=== PATIENT | female | born 1955 | race Caucasian/White ===

== ENCOUNTER 2020-06-10 11:01 | Outpatient (REF) | payer OTHER, SELFPAY ==
--- NOTE | ~2020-06-10 | XR_ITS ---
EXAMINATION: XR SACRUM AND COCCYX CLINICAL INFORMATION: Sacrococcygeal disorders. COMPARISON: None TECHNIQUE: 2 views of the sacrum and 2 views of the coccyx were obtained. FINDINGS: The sacrum appears unremarkable. There is mild posterior displacement of S2 in relation to S1 vertebra, question age. No visible fracture seen. The presacral and prevertebral soft tissues are normal. The SI joints are symmetrical and normal. XR/XR sacrum coccyx min 2V IMPRESSION: Mild posterior subluxation of S2 in relation S1 of indeterminate age. This could be remote. No acute fracture involving the sacrum. The SI joints are symmetrical and normal.
[2020-06-10 13:57] LABS: Hematocrit 39.7 % (37-47); Hemoglobin 12.5 g/dl (12.0-16.0)
[2020-06-10 14:32] LABS: Alanine Aminotransferase 25 U/L (0-31); Albumin Level 4.2 g/dL (3.5-5.0); Alkaline Phosphatase 98 U/L (39-117); Anion Gap 16 (12-20); Aspartate Amino Transferase 24 U/L (5-31); Bilirubin Direct < 0.2 mg/dL (0.0-0.5); Bilirubin Total 0.2 mg/dL (0.0-1.0); Blood Urea Nitrogen 18 mg/dL (9-16); Calcium 9.3 mg/dL (8.4-10.2); Carbon Dioxide 23 mmol/L (22-29); Chloride 104 mmol/L (96-108); Estimated Glomerular Filt Rate > 60; Glucose Random 86 mg/dL (60-115); Potassium 4.9 mmol/L (3.3-5.1); Sodium 138 mmol/L (135-145); Total Protein 7.3 g/dL (6.5-8.0)
[2020-06-10 14:55] LABS: TSH reflex Free T4 1.56 uIU/mL (0.32-4.0)
[2020-06-10 15:50] LABS: Vitamin B12 228 pg/mL (200-900)
[2020-06-11 05:32] LABS: LDL Cholesterol Direct 106 mg/dL (<100)
[2020-06-17 11:56] LABS: Vitamin D 25-OH, D2 <4 ng/mL; Vitamin D 25-OH, D3 24 ng/mL; Vitamin D 25-OH, Total 24 ng/mL (30-100)
== END 2020-06-10 11:02 | disposition home or self-care (01) ==
LOC: HO.HMGCLDS 11:01
PROVIDERS: PCP Internal Medicine; Visit Provider Internal Medicine
DX: M47.814 Spondylosis without myelopathy or radiculopathy, thoracic region (principal); T78.40XA Allergy, unspecified, initial encounter; E66.9 Obesity, unspecified; M19.90 Unspecified osteoarthritis, unspecified site; M54.9 Dorsalgia, unspecified; G89.29 Other chronic pain; R32 Unspecified urinary incontinence; E55.9 Vitamin D deficiency, unspecified; M53.3 Sacrococcygeal disorders, not elsewhere classified; R11.2 Nausea with vomiting, unspecified; R19.7 Diarrhea, unspecified; R10.13 Epigastric pain
CPT/HCPCS: 36415; 72220; 80048; 80076; 82306; 82607; 83721; 84443; 85014; 85018

== ENCOUNTER → 2020-07-07 14:34 | Outpatient (BNVA) | payer SELFPAY | PROVIDERS: PCP Internal Medicine; Visit Provider Internal Medicine Gastroenterology ==

== ENCOUNTER → 2020-07-15 14:35 | Outpatient (BNVA) | payer MEDICAID, SELFPAY | PROVIDERS: PCP Internal Medicine; Visit Provider Internal Medicine Gastroenterology ==

== ENCOUNTER 2020-10-08 15:14 | Emergency (ER) | payer OTHER, MEDICAID, SELFPAY ==
--- NOTE | ~2020-10-08 | XR_ITS ---
EXAMINATION: XR HAND, LEFT CLINICAL INFORMATION: Crushed fingers COMPARISON: None TECHNIQUE: PA, lateral, and oblique views of the left hand. FINDINGS: Bones are normal anatomic alignment. I do not appreciate any acute fracture or dislocation. Joint spaces appear preserved. No repair foreign body or soft tissue gas. XR/XR hand LT min 3V IMPRESSION: No acute fracture or dislocation.
--- NOTE | 2020-10-08 18:28 | ED_ITS ---
HPI - Extremity Problem General Chief complaint: Wound/Laceration Stated complaint: hand lac Time Seen by Provider: 10/08/20 18:26 Source: patient Mode of arrival: ambulatory Limitations: language barrier History of Present Illness HPI Narrative: history obtained through medical records library professor. 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 Not up to date with tetanous shot. Complaint: extremity pain and joint swelling Onset (ago): hour(s) Pain Consistency: constant Location: left Quality: crushing Relieving factors: nothing Exacerbating factors: palpation Associated symptoms: denies other symptoms Related Data Home Medications Medication Instructions Recorded Confirmed No Known Home Meds 06/10/20 06/10/20 Previous Rx's Medication Instructions Recorded omeprazole 20 mg capsule,delayed 20 mg PO BID 90 Days #180 cap 06/10/20 release Allergies Allergy/AdvReac Type Severity Reaction Status Date / Time No Known Allergies Allergy Verified 07/15/20 14:35 Review of Systems Constitutional: Constitutional: Reports no additional constitutional complaints Eyes: Eyes: Reports no additional eye complaints ENT: Denies dizziness Cardiovascular: Cardiovascular: Reports no additional cardiovascular complaints Respiratory: Respiratory: Reports as per HPI Gastrointestinal: Gastrointestinal: Reports no additional gastrointestinal complaints Genitourinary: Genitourinary: Reports no additional female genitourinary complaints Musculoskeletal: Musculoskeletal: Reports no additional musculoskeletal complaints Integumentary/Breasts: Skin/Breast: Denies rash Neurologic: Reports system reviewed and no additional complaints, except as documented, Denies dizziness and Denies Sensory deficit (Neuro) Psychiatric: Psychiatric: Denies anxiety [facility] Past Medical History Surgical History (Updated 07/15/20 @ 14:37 by ANSHUL Yousif) H/O colonoscopy Social History Social History (Updated 07/15/20 @ 14:38 by ANSHUL Yousif) Household Members: Spouse Alcohol intake: current Alcohol intake frequency: does not drink Advance Directives: No Advance Directives Information Provided: No Patient : No Physical Exam Vital Signs: Vital Signs: Last Vital Signs Temp 97.1 F 10/08/20 18:40 Pulse 60 10/08/20 18:40 Resp 16 10/08/20 18:40 BP 174/79 H 10/08/20 18:40 Pulse Ox 100 10/08/20 18:40 Body Mass Index 34.0 Const: General: healthy appearing Nutritional Appearance: average body habitus Orientation/consciousness: oriented to person and patient oriented x3 Limitations: no limitations HENMT: Head: Yes normal to inspection Ears: external ears normal General nose exam: Normal external nose present Mouth: Normal oral and palatal mucosa present and oropharynx normal Throat: Yes posterior oropharynx normal Eyes: General: appearance normal, both eyes and all related structures Neck: Other: supple Neck: Yes normal visual inspection Chest: Chest palpation & inspection: normal inspection of the chest Resp: Auscultation: clear to auscultation bilaterally Cardio: Jugular venous distension: no JVD Rate: regular rate Rhythm: regular rhythm Heart sounds: S1 normal heart sound present and S2 normal heart sound present GI: Inspection: Yes normal to inspection Palpation (GI): Soft to palpation, nontender and No hepatosplenomegaly present Auscultation: normal bowel sounds : General: Yes no CVA tenderness Back/Spine/Pelvis: Back: no CVA tenderness Skin: General skin exam: no rashes or lesions noted Neuro: General: oriented to person and patient oriented x3 Cranial nerves: Yes CN's II-XII intact bilaterally Motor exam (neuro): 5/5 motor strength present throughout Sensory Exam: No Sensory deficit (Neuro) Extrem: Other: 2-5 fingers with slight bruising worse to #4 and #5. Number 5 with 2 3cm lacerations with ecchymosis. INjuries mostly to distal phalynx of all fingers. Psych: Appearance: grossly normal Course Course Course Narrative: no fractures. On laceration closed with 5 x 5-0 nylon, the other closed with 7 sutures Procedures Procedure Narrative Procedure Narrative: Patient prepped and draped in sterile fashion, 1% lidocaine used for anesthesia with digital block, wound irrigated under pressure with saline, closed with 5-0 nylon x 12. Patient tolerated procedure well. Discharge Plan Discharge Clinical Impression: Finger laceration Qualifiers: Encounter type: initial encounter Finger: little finger Damage to nail status: without damage Foreign body presence: without foreign body Laterality: left Qualified Code(s): S61.217A - Laceration without foreign body of left little finger without damage to nail, initial encounter Patient Disposition: Home, Self-Care Instructions: Finger Laceration (ED), Care For Your Stitches (ED) Additional Instructions: suture removal in 7 days Prescriptions: No Action omeprazole 20 mg capsule,delayed release(DR/EC) 20 mg PO BID 90 Days Qty: 180 RF: 0 Referrals: Physician,Unknown [Primary Care Provider] - 1 week (suture removal in 7 days) Stand Alone Forms: Work/School Release
[2020-10-08 18:40] VITALS: BP 174/79; PULSE 60; RESP 16; TEMP 36.2; O2SAT 100; BMI 34.0
[2020-10-08] MEDS: Ketorolac Tromethamine 60 MG/2 ML VIAL IM (19:57)
[2020-10-08] MEDS: Diphth,Pertus(ACell),Tet Adult 0.5 ML SYRINGE IM (19:57)
== END 2020-10-08 20:24 | disposition home or self-care (01) ==
PROVIDERS: Emergency Provider Emergency Medicine
DX: S61.217A Laceration without foreign body of left little finger without damage to nail, initial encounter (principal); W31.9XXA Contact with unspecified machinery, initial encounter; Y93.9 Activity, unspecified; Y92.9 Unspecified place or not applicable; Y99.9 Unspecified external cause status
CPT/HCPCS: 12002; 73130; 90471; 90715; 96372; 99284; J1885

== ENCOUNTER → 2020-11-05 15:00 | Outpatient (BNVA) | payer OTHER, SELFPAY | PROVIDERS: PCP Internal Medicine; Visit Provider Orthopaedic Surgery | DX: S61.217A Laceration without foreign body of left little finger without damage to nail, initial encounter (principal); W26.0XXA Contact with knife, initial encounter; Y93.G3 Activity, cooking and baking; Y92.9 Unspecified place or not applicable; Y99.8 Other external cause status | CPT/HCPCS: 99202 ==

== ENCOUNTER → 2020-12-03 08:05 | Outpatient (BNVA) | payer OTHER, SELFPAY | PROVIDERS: PCP Internal Medicine; Visit Provider Orthopaedic Surgery | DX: S61.217D Laceration without foreign body of left little finger without damage to nail, subsequent encounter (principal); M79.644 Pain in right finger(s) | CPT/HCPCS: 99212 ==

== ENCOUNTER 2021-01-13 14:00 | Outpatient (RCR) | payer OTHER, SELFPAY ==
--- NOTE | 2020-12-11 14:43 | MHC.OT.OEV ---
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 SHE PRESENTED TO [facility] FOR A LEFT FIFTH DIGIT LACERATION ON 10/08/20. Pt WAS REFERRED TO DR DAWKINS AFTER ONE SUTURE WAS UNABLE TO BE REMOVED IN HER PCP'S OFFICE. 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 WASHING DISHES, DOING LAUNDRY, AND COOKING. Sleep: HX OF DIFFICULTIES WITH SLEEPING PRIOR TO INJURY, REPORTS EVEN MORE DIFFICULTIES SINCE INJURY Driving: NOT CURRENTLY DRIVING, TAKES PUBLIC TRANSPORTATION Balance: IMPAIRED, Pt REPORTS RLE PAIN AND SWELLING. DOES NOT AMBULATE WITH AD Pain Assessment Pain Score: 0-8/10 Pain Scale Used: Numeric (0 - 10) Pain Location and Description: LEFT SMALL FINGER, LATERAL D5 OCCASIONAL PAIN IN D4-D2, LOW PAIN REPORTED Aggravating Factors: WASHING DISHES, HITTING/BUMPING SMALL FINGER ON OBJECTS, LIGHT TOUCH Alleviating Factors: TYLENOL IN AM AND PM, OCCASIONAL MASSAGE, HAS NOT USED ICE OR HEAT Skin and Soft Tissue Assessment Skin and Soft Tissue: Swelling Scar Tissue Comments: HEALED SCAR WITH MILD SWELLING DISTALLY TO SMALL FINGER OF LEFT HAND Sensory Assessment Temperature: Light Touch: Left Impaired Proprioception: Vibration: Comments: HYPERSENSATIVE TO LIGHT TOUCH DISTALLY TO D5, APPEARS IMPAIRED SENSATION DISTALLY TO D5. SEMMES DANNA ASSESSMENT INCONSISTENT DUE TO LANGUAGE BARRIER; REPORTS PAIN WITH MONOFILAMENTS TOUCHING DISTALLY TO DIPj Edema Assessment Upper Extremity: Left Impaired Lower Extremity: Comments: CIRCUMFERENCE OF D5 PIPj: LEFT 5.5 CM, RIGHT 5.2 CM CIRCUMFERENCE OF D5 DIPj: LEFT 4.8 CM ,RIGHT 4.1 CM Dexterity Assessment Dexterity: Left Impaired Comments: FUNCTIONAL DEXTERITY TEST: LEFT 40 SECONDS (MINIMALLY FUNCTIONAL), RIGHT 30 SECONDS (MODERATELY FUNCTIONAL) Special Tests Comments: AROM(PROM) Strength Elbow Flexion: Extension: Pronation: Supination: Comments: WFL Flexion: Extension: Pronation: Supination: Comments: Wrist Flexion: Extension: Ulnar Deviation: Radial Deviation: Comments: WFL Flexion: Extension: Ulnar Deviation: Radial Deviation: Comments: Digits Index MCP: PIP: DIP: Long MCP: PIP: DIP: Ring MCP: PIP: DIP: Small MCP: L 68, R 72 PIP: L 56 (64), R 90 DIP: L 2/32, R 78 Comments: Gross Grasp: L 15, R 20 Lateral Pinch: Two-Point Pinch: Three-Jaw Андрей: Comments: GUARDING L SMALL FINGER WITH MARKING CLERK TESTING Patient Education Primary Language: Faroese Plant Health Care Technician Required: Yes Current Knowledge: Understands information with skills for self-management Teaching Method: Demonstration Handouts Phone Call Verbal Education Needs Identified on Evaluation: ADL's Disease Information Equipment Use Exercise Pain Safety How did patient/family demonstrate learning? Patient demonstrates Patient verbalizes Needs reinforcement Barriers to Learning: Other Readiness for Learning: Accepting Who was educated? Patient Comments: [employer] HYDROMETER FINISHER UTILIZED #[id number] Plan of Care Assessment: HERIBERTO IS 9 WEEKS S/P LACERATION TO VOLAR ASPECT, DISTAL TO DIP JOINT OF THE LEFT SMALL FINGER. SHE SUSTAINED HER INJURY WHILE WORKING IN THE KITCHEN AT HER PLACE OF EMPLOYMENT. DURING HER OT EVALUATION, Pt WAS ABLE TO UNDERSTAND SOME SCOTTISH, YET AN HYDROMETER FINISHER WAS UTILIZED TO OPTIMIZE COMMUNICATION. SHE IS EXPERIENCING PAIN WITH LIGHT TOUCH TO DISTAL SMALL FINGER OF HER LEFT UE, AND IS LIMITING HER PARTICIPATION IN DAILY ACTIVITIES. HERIBERTO REPORTS MOST DIFFICULTIES WITH PERFORMING WORK RELATED TASKS, INCLUDING WASHING DISHES AND CUTTING WITH KNIFE. ONGOING SKILLED OT IS WARRANTED TO ADDRESS ROM, STRENGTH, DESENSITIZATION STRATEGIES, PATIENT EDUCATION AND RETURN TO MAXIMUM FUNCTIONAL LEVEL WITH IADLs. STG Duration: 2 WEEKS Short Term Goals: IND HEP IND EDEMA MANAGEMENT STRATEGIES IND USE OF HEAT/ICE Pt TO INCORPORATE L SMALL FINGER INTO FUNCTIONAL TASKS WITH <MIN CUING Pt WILL TOLERATE LIGHT TOUCH FOR 8 MINS PAINFREE AT REST AND <6/10 WITH LIGHT IADLs LTG Duration: 4 WEEKS Half-Way Goals: TOLERATE CUTTING, PREPPING FOOD WITH APPROPRIATE STRENGTH Pt WILL TOLERATE FIRM, DEEP TOUCH FOR 8 MINS FUNCTIONAL DEXTERITY TEST TO FUNCTIONAL (<26 SECONDS) WILL REPORT <4/10 PAIN WITH LIFTING >10 POUNDS FOR IADLs Frequency and Duration: The patient will be seen 2X/WEEK FOR 4 WEEKS Treatment Plan: Therapeutic Exercise Therapeutic Activity Home Exercise Program Splinting Neuro Re-ed Patient Education Desensitization/Sensory Re-ed Edema Control ADL Training Ultrasound NMES Iontophoresis Paraffin Fluidotherapy MHP Cold Packs Joint Mobilization Soft Tissue Mobilization Kinesiotaping Other (see comments) Electronically Signed By: SANDY JERONIMO/Alvaro Reviewed/agree with student documentation: N/A Therapist: Please sign and return to therapist, Thank you for your referral.
--- NOTE | 2021-01-15 14:43 | MHC.OT.DC ---
[address] [phone] F: [phone] Occupational Therapy Discharge Note Provider: Tea Richard Diagnosis: LACERATION OF LEFT LITTLE FINGER Date of Evaluation: 12/11/20 Date of Discharge: 01/15/21 Treatments to Date: 8 Discharge Status: Improved Function Independent with HEP Discharge Summary: MS SAENZ HAS BEEN SEEN FOR OUTPATIENT OT SERVICES. SHE HAS IMPROVED FUNCTIONAL USE OF L HAND, CONT TO HAVE SENSATIVITY AT SCAR. DENIES DIFFICULTIES WITH HOME OR WORK RELATED TASKS. RECOMMEND [facility] FOR HOME USE. READY FOR TRANSITION TO SELF MAINTENANCE PROGRAM. Electronically Signed By: SANDY JERONIMO/Alvaro Reviewed/agree with student documentation: N/A Therapist: Please Sign and return to therapist, thank you for your referral.
== END 2021-01-15 14:55 | disposition home or self-care (01) ==
LOC: HO.OT 14:00
PROVIDERS: Visit Provider Orthopaedic Surgery
DX: S61.217A Laceration without foreign body of left little finger without damage to nail, initial encounter (principal)
CPT/HCPCS: 97035; 97110; 97112; 97166

== ENCOUNTER 2021-02-07 12:14 | Emergency (ER) | payer OTHER, SELFPAY ==
--- NOTE | ~2021-02-07 | XR_ITS ---
EXAMINATION: XR CHEST CLINICAL INFORMATION: Fever, chills, cough COMPARISON: Frontal view 05/22/19 TECHNIQUE: Upright frontal portable view of the chest was obtained. FINDINGS: Devices overlie the patient. Minimal rotation to left. The mediastinum leelee and vasculature are within normal limits. Lung volumes are relatively low. There are subsegmental linear opacities in both lower lung zones. The upper lung zones are well aerated. No pneumothorax or pleural fluid. Opaque structure superimposes over the right cervical spine likely related to the patient's hair XR/XR chest 1V IMPRESSION: Hypoinflation with bibasilar atelectasis. No edema or dense pneumonia
[2021-02-07 12:15] VITALS: BP 110/79; BP 116/54; PULSE 68; PULSE 79; RESP 18; TEMP 37.3; O2SAT 97; O2SAT 98; BMI 33.8
[2021-02-07 12:24] VITALS: O2SAT 97
--- NOTE | 2021-02-07 12:34 | ED_ITS ---
HPI - General Adult General Chief complaint: Upper Respiratory Symptoms Stated complaint: SOB,FEVER,?COVID,? PNA Time Seen by Provider: 02/07/21 12:19 Source: patient Mode of arrival: EMS Limitations: no limitations History of Present Illness HPI narrative: 65-year-old female who presents to emergency department for evaluation of 3 days flu-like illness. The patient states that she has had a cough which is mainly nonproductive. She has diffuse chest pain which is worse with coughing, she describes it as a sharp intermittent pain which is [id number]-[id number] in intensity. She states that her muscles and joints ache. She is also complaining of headache and pain in her neck. She has had subjective fever at home. She states that she has had a decreased appetite but she has been drinking fluid. She complained of nausea but denied vomiting. She denied change in bowel movements, she has had no diarrhea. She denied frequency, urgency or dysuria. She was seen at an urgent care clinic and they were concerned that she had pneumonia so she was transferred to the emergency department by ambulance. The patient states that she has been taking Tylenol at home with some relief for symptoms. The patient received the [employer] COVID-19 vaccination in June of 2020. Related Data Previous Rx's Medication Instructions Recorded cholecalciferol (vitamin D3) 25 25 mcg PO DAILY 90 Days #90 cap 12/26/20 mcg (1,000 unit) capsule omeprazole 20 mg capsule,delayed 20 mg PO BID 90 Days #180 cap 12/26/20 release Allergies Allergy/AdvReac Type Severity Reaction Status Date / Time No Known Allergies Allergy Verified 02/07/21 11:02 Review of Systems Review of Systems: Yes all other systems are reviewed and are negative [facility] Past Medical History [facility] Narrative: Past medical history : Cellulitis, GERD, degenerative joint disease, osteoarthritis. Past surgical history: None. Social history: The patient denies tobacco, alcohol and drug use. Medical History Visit for suture removal Surgical History H/O colonoscopy Social History Social History Household Members: Spouse Housing: House Alcohol intake: current Alcohol intake frequency: does not drink Patient Tobacco Use Status: Never used Tobacco e-Cigarette/Vaping Use: Never Used Second Hand Smoke Exposure: No Use of substances other than those prescribed or required for medical reasons: No Advance Directives: No Advance Directives Information Provided: No service: No Physical Exam Vital Signs: Vital Signs: Last Vital Signs Temp 99.2 F 02/07/21 12:15 Pulse 68 02/07/21 12:15 Resp 18 02/07/21 12:15 BP 116/54 L 02/07/21 12:15 Pulse Ox 97 02/07/21 12:24 Body Mass Index 33.8 Const: Other: Very pleasant and cooperative female patient, she does not appear to be in distress. HENMT: Head: Yes normal to inspection, Yes normocephalic and Yes atraumatic Ears: external ears normal General nose exam: Normal external nose present Face and sinus: Yes normal facial exam Mouth: Abnormal oral and palatal mucosa present (Very dry mucous membranes) Throat: Yes posterior oropharynx normal Eyes: General: appearance normal, both eyes and all related structures Pupils: Equal, round and reactive pupils present Neck: Neck: Yes normal visual inspection, Yes no lymphadenopathy, Yes trachea midline and Yes supple Chest: Chest palpation & inspection: normal inspection of the chest and normal palpation of entire chest wall Resp: Effort & Inspection: normal respiratory effort and able to speak in complete sentences Auscultation: clear to auscultation bilaterally Cardio: Rate: regular rate Rhythm: regular rhythm Heart sounds: S1 normal heart sound present, S2 normal heart sound present and no murmurs GI: Inspection: Yes normal to inspection Palpation (GI): Soft to palpation, nontender and no guarding Auscultation: normal bowel sounds : General: Yes no CVA tenderness Back/Spine/Pelvis: Back: no CVA tenderness Skin: General skin exam: no rashes or lesions noted Neuro: Cranial nerves: Yes CN's II-XII intact bilaterally and Yes Equal, round and reactive pupils present Cognition (Neuro): normal cognition Motor exam (neuro): 5/5 motor strength present throughout Extrem: General: Yes normal to inspection Psych: Appearance: grossly normal Speech and movement: Normal speech and movement present Affect: normal affect Attitude: cooperative Thought process: Normal thought process present Thought content: Normal thought content present Course Course Course Narrative: 65-year-old female who presents emergency department for evaluation of 3 days of flu-like illness with pleuritic chest pain and a nonproductive cough. The patient was seen at urgent care clinic and referred to the emergency department to rule out pneumonia. Patient's physical examination revealed very dry mucous membranes otherwise was unremarkable. I ordered a CBC, CMP, lipase, lactate, blood cultures x2. One-view chest x-ray will be obtained. A viral respiratory panel was also ordered. Patient was ordered to get normal saline IV x1 L. the patient's pain will be treated with Toradol 30 mg IV and her nausea be treated with Zofran 4 mg IV. 1553: The patient's chest x-ray was unremarkable. Laboratory evaluation revealed a slightly low white blood count of 3500 otherwise was normal. The patient's respiratory viral panel is positive for COVID-19. The patient was vaccinated with the [employer] COVID-19 vaccine. did discuss the blood work and positive COVID test with the patient. At this time she is not hypoxic, tachypneic or tachycardic and she appears well therefore she will be d ischarged home. I do not think the patient would benefit from antibiotics or for steroids at this time. Medical Decision Making Lab Data Result diagrams: 02/07/21 12:50 02/07/21 12:50 Labs: Lab Results 02/07/21 02/07/21 02/07/21 Range/Units 12:50 12:50 12:50 WBC 3.5 L (4.8-10.8) X10*3/uL RBC 4.74 (4.20-5.50) X10*6/uL Hgb 12.4 (12.0-16.0) g/dl Hct 39.1 (37-47) % MCV 82.5 (80-98) fL MCH 26.2 L (27.0-33.0) pg MCHC 31.7 (31.0-35.0) g/dl RDW 15.2 (11.0-16.0) % Plt Count 208 (160-400) X10*3/uL MPV 10.7 (9.4-12.3) fL Immature Gran % (Auto) 0.3 (0.0-0.4) % Neut % (Auto) 40.6 L (45-73) % Lymph % (Auto) 47.7 H (20-40) % Humphreys % (Auto) 9.7 (2-11) % Eos % (Auto) 1.7 (0-4) % Baso % (Auto) 0.0 (0-2) % Lymph # (Auto) 1.7 (1.2-4.9) X10*3/uL Humphreys # (Auto) 0.3 (0.1-1.2) X10*3/uL Eos # (Auto) 0.1 (0.0-0.4) X10*3/uL Baso # (Auto) 0.0 (0.0-0.2) X10*3/uL Abs Immat Gran (auto) 0.01 (0.00-0.03) X10*3/uL Absolute Neuts (auto) 1.4 L (2.0-8.3) X10*3/uL Absolute Nucleated RBC 0.000 (0.0-0.012) X10*3/uL Nucleated RBC % (auto) 0.0 (0.0-0.2) /100WBC Sodium 140 (135-145) mmol/L Potassium 4.3 (3.3-5.1) mmol/L Chloride 107 (96-108) mmol/L Carbon Dioxide 25 (22-29) mmol/L Anion Gap 12 (12-20) BUN 11 (9-16) mg/dL Creatinine 0.90 (0.5-1.4) mg/dL Estim Creat Clear Calc 65.9 Estimated GFR > 60 Random Glucose 93 (60-115) mg/dL Lactic Acid 0.6 (0.5-2.0) mmol/L Calcium 8.9 (8.4-10.2) mg/dL Total Bilirubin < 0.2 (0.0-1.0) mg/dL AST 25 (5-31) U/L ALT 21 (0-31) U/L Alkaline Phosphatase 88 (39-117) U/L Total Protein 6.6 (6.5-8.0) g/dL Albumin 4.0 (3.5-5.0) g/dL Lipase 74 (8-78) U/L Respiratory Panel Allison Adenovirus (Rapid PCR) (Not Detect.) B.pert (TEM-PCR) (Not Detect.) B.parapertussis DNA PCR (Not Detect.) C. pneumoniae DNA (PCR) (Not Detect.) Coronavirus OC43 (PCR) (Not Detect.) Coronavirus HKU1 (PCR) (Not Detect.) Coronavirus 229E (PCR) (Not Detect.) Coronavirus NL63 (PCR) (Not Detect.) Human Metapneumovir PCR (Not Detect.) Influenza A (RT-PCR) (Not Detect.) Influenza B (RT-PCR) (Not Detect.) M. pneumoniae (PCR) (Not Detect.) Parainfluenza 1 (PCR) (Not Detect.) Parainfluenza 2 (PCR) (Not Detect.) Parainfluenza 3 (PCR) (Not Detect.) Parainfluenza 4 (PCR) (Not Detect.) RSV (PCR) (Not Detect.) Entero/Rhino (PCR) (Not Detect.) SARS-CoV-2 RNA (RT-PCR) (Not Detect.) 02/07/21 Range/Units 13:41 WBC (4.8-10.8) X10*3/uL RBC (4.20-5.50) X10*6/uL Hgb (12.0-16.0) g/dl Hct (37-47) % MCV (80-98) fL MCH (27.0-33.0) pg MCHC (31.0-35.0) g/dl RDW (11.0-16.0) % Plt Count (160-400) X10*3/uL MPV (9.4-12.3) fL Immature Gran % (Auto) (0.0-0.4) % Neut % (Auto) (45-73) % Lymph % (Auto) (20-40) % Humphreys % (Auto) (2-11) % Eos % (Auto) (0-4) % Baso % (Auto) (0-2) % Lymph # (Auto) (1.2-4.9) X10*3/uL Humphreys # (Auto) (0.1-1.2) X10*3/uL Eos # (Auto) (0.0-0.4) X10*3/uL Baso # (Auto) (0.0-0.2) X10*3/uL Abs Immat Gran (auto) (0.00-0.03) X10*3/uL Absolute Neuts (auto) (2.0-8.3) X10*3/uL Absolute Nucleated RBC (0.0-0.012) X10*3/uL Nucleated RBC % (auto) (0.0-0.2) /100WBC Sodium (135-145) mmol/L Potassium (3.3-5.1) mmol/L Chloride (96-108) mmol/L Carbon Dioxide (22-29) mmol/L Anion Gap (12-20) BUN (9-16) mg/dL Creatinine (0.5-1.4) mg/dL Estim Creat Clear Calc Estimated GFR Random Glucose (60-115) mg/dL Lactic Acid (0.5-2.0) mmol/L Calcium (8.4-10.2) mg/dL Total Bilirubin (0.0-1.0) mg/dL AST (5-31) U/L ALT (0-31) U/L Alkaline Phosphatase (39-117) U/L Total Protein (6.5-8.0) g/dL Albumin (3.5-5.0) g/dL Lipase (8-78) U/L Respiratory Panel Allison See Note Adenovirus (Rapid PCR) Not Detected (Not Detect.) B.pert (TEM-PCR) Not Detected (Not Detect.) B.parapertussis DNA PCR Not Detected (Not Detect.) C. pneumoniae DNA (PCR) Not Detected (Not Detect.) Coronavirus OC43 (PCR) Not Detected (Not Detect.) Coronavirus HKU1 (PCR) Not Detected (Not Detect.) Coronavirus 229E (PCR) Not Detected (Not Detect.) Coronavirus NL63 (PCR) Not Detected (Not Detect.) Human Metapneumovir PCR Not Detected (Not Detect.) Influenza A (RT-PCR) Not Detected (Not Detect.) Influenza B (RT-PCR) Not Detected (Not Detect.) M. pneumoniae (PCR) Not Detected (Not Detect.) Parainfluenza 1 (PCR) Not Detected (Not Detect.) Parainfluenza 2 (PCR) Not Detected (Not Detect.) Parainfluenza 3 (PCR) Not Detected (Not Detect.) Parainfluenza 4 (PCR) Not Detected (Not Detect.) RSV (PCR) Not Detected (Not Detect.) Entero/Rhino (PCR) Not Detected (Not Detect.) SARS-CoV-2 RNA (RT-PCR) Detected A (Not Detect.) Discharge Plan Discharge Clinical Impression: COVID-19 virus infection Patient Disposition: Home, Self-Care Instructions: COVID-19 (Coronavirus Disease 2019) (ED) Additional Instructions: Your chest x-ray was normal suggesting that you do not have pneumonia at this time. Your blood work was normal as well. Your oxygen level Prescriptions: No Action omeprazole 20 mg capsule,delayed release(DR/EC) 20 mg PO BID 90 Days Qty: 180 RF: 0 cholecalciferol (vitamin D3) 25 mcg (1,000 unit) capsule 25 mcg PO DAILY 90 Days Qty: 90 RF: 3
[2021-02-07] MEDS: Ketorolac Tromethamine 15 MG/ML VIAL 30 MG IVPUSH (12:41)
[2021-02-07] MEDS: 0.9 % Sodium Chloride 1,000 ML 999 ML IV (12:41)
[2021-02-07] MEDS: ondansetron HCL 4 MG/2 ML VIAL IVPUSH (12:41)
[2021-02-07 12:55] LABS: MANUAL DIFF FLAG NO
[2021-02-07 13:06] LABS: Lactic Acid 0.6 mmol/L (0.5-2.0)
[2021-02-07 13:14] LABS: Eosinophils Absolute Auto 0.1 X10*3/uL (0.0-0.4); Eosinophils Percent Auto 1.7 % (0-4); Hematocrit 39.1 % (37-47); Hemoglobin 12.4 g/dl (12.0-16.0); Imm Gran Abs Auto 0.01 X10*3/uL (0.00-0.03); Imm Gran Pct Auto 0.3 % (0.0-0.4); Lymphocytes Absolute Auto 1.7 X10*3/uL (1.2-4.9); Lymphocytes Percent Auto 47.7 % (20-40); Mean Corpuscular HGB Conc 31.7 g/dl (31.0-35.0); Mean Corpuscular Hemoglobin 26.2 pg (27.0-33.0); Mean Corpuscular Volume 82.5 fL (80-98); Mean Platelet Volume 10.7 fL (9.4-12.3); Monocytes Absolute Auto 0.3 X10*3/uL (0.1-1.2); Monocytes Percent Auto 9.7 % (2-11); Neutrophils Absolute Auto 1.4 X10*3/uL (2.0-8.3); Neutrophils Percent Auto 40.6 % (45-73); Platelet Count 208 X10*3/uL (160-400); Red Blood Count 4.74 X10*6/uL (4.20-5.50); Red Cell Distribution Width 15.2 % (11.0-16.0); White Blood Count 3.5 X10*3/uL (4.8-10.8)
[2021-02-07 13:30] LABS: Alanine Aminotransferase 21 U/L (0-31); Alkaline Phosphatase 88 U/L (39-117); Anion Gap 12 (12-20); Aspartate Amino Transferase 25 U/L (5-31); Bilirubin Total < 0.2 mg/dL (0.0-1.0); Blood Urea Nitrogen 11 mg/dL (9-16); Calcium 8.9 mg/dL (8.4-10.2); Carbon Dioxide 25 mmol/L (22-29); Chloride 107 mmol/L (96-108); Creatinine Clr Calc Pharmacy 65.9; Estimated Glomerular Filt Rate > 60; Glucose Random 93 mg/dL (60-115); Lipase 74 U/L (8-78); Potassium 4.3 mmol/L (3.3-5.1); Sodium 140 mmol/L (135-145); Total Protein 6.6 g/dL (6.5-8.0)
[2021-02-07 13:46] LABS: Adenovirus PCR Not Detected (Not Detect.); Bordetella parapertussis PCR Not Detected (Not Detect.); Bordetella pertussis PCR Not Detected (Not Detect.); Chlamydia pneumoniae PCR Not Detected (Not Detect.); Coronavirus 229E PCR Not Detected (Not Detect.); Coronavirus HKU1 PCR Not Detected (Not Detect.); Coronavirus NL63 PCR Not Detected (Not Detect.); Coronavirus OC43 PCR Not Detected (Not Detect.); Human metapneumovirus PCR Not Detected (Not Detect.); Influenza A PCR Not Detected (Not Detect.); Influenza B PCR Not Detected (Not Detect.); Mycoplasma pneumoniae PCR Not Detected (Not Detect.); Parainfluenza 1 PCR Not Detected (Not Detect.); Parainfluenza 2 PCR Not Detected (Not Detect.); Parainfluenza 3 PCR Not Detected (Not Detect.); Parainfluenza 4 PCR Not Detected (Not Detect.); RSV PCR Not Detected (Not Detect.); Rhino/Enterovirus PCR Not Detected (Not Detect.)
[2021-02-07 15:19] LABS: SARS-CoV-2 PCR Detected (Not Detect.)
== END 2021-02-07 16:40 | disposition home or self-care (01) ==
PROVIDERS: Emergency Provider Emergency Medicine Emergency Medical Services; PCP Internal Medicine
DX: U07.1 COVID-19 (principal); J06.9 Acute upper respiratory infection, unspecified; R06.02 Shortness of breath; R50.9 Fever, unspecified; R11.0 Nausea; R05.9 Cough, unspecified; Z79.899 Other long term (current) drug therapy
CPT/HCPCS: 36415; 71045; 80053; 83605; 83690; 85025; 87633; 96361; 96374; 96375; 99284; J1885; J2405

== ENCOUNTER 2021-04-22 08:28 | Outpatient (REF) | payer OTHER, SELFPAY ==
--- NOTE | ~2021-04-22 | CT_ITS ---
EXAMINATION: CT HEAD WITHOUT CONTRAST CLINICAL INFORMATION: Mild cognitive impairment COMPARISON: None TECHNIQUE: Contiguous axial imaging was performed from the skull base to vertex without intravenous administration of contrast. This CT examination was performed using dose optimization techniques as appropriate, variously including the following: *Automated exposure control *Adjustment of mA and/or kV according to patient size (this includes techniques or standardized protocols for targeted exams where dose is matched to indication/reason for exam; i.e. extremities or head) *Use of iterative reconstruction technique DLP: 800 mGy-cm FINDINGS: There is no evidence of an extra-axial collection. There is no evidence of intra-axial or extra-axial hemorrhage. Ventricles and extra-axial CSF spaces are appropriate. There is mild periventricular white matter disease. No mass, mass effect or infarct is seen. Review of bone windows is normal. There is minimal inflammatory change in the ethmoid sinuses. Visualized paranasal sinuses, mastoid air cells and middle ears are otherwise clear. CT/CT head/brain wo con IMPRESSION: Mild periventricular white matter disease.
== END 2021-04-22 08:29 | disposition home or self-care (01) ==
LOC: HO.CT 08:28
PROVIDERS: PCP Internal Medicine; Visit Provider Psychiatry & Neurology Neurology
DX: G31.84 Mild cognitive impairment of uncertain or unknown etiology (principal); R90.82 White matter disease, unspecified
CPT/HCPCS: 70450

== ENCOUNTER 2021-05-18 13:55 | Outpatient (REF) | payer OTHER, SELFPAY ==
--- NOTE | ~2021-05-18 | XR_ITS ---
EXAMINATION: XR ANKLE, BILATERAL CLINICAL INFORMATION: Pain. COMPARISON: None TECHNIQUE: 3 views of each ankle. FINDINGS: RIGHT: Bone alignment is normal. No fracture or dislocation is seen. There is a small bony osteophyte projecting off the medial malleolus. The ankle mortise is normal. There are calcaneal spurs. Soft tissues are normal. LEFT: Bone alignment is normal. No fracture or dislocation is seen. There is a small bony osteophyte projecting off the medial malleolus. The ankle mortise is normal. There are calcaneal spurs. Soft tissues are normal. XR/XR ankle RT min 3V IMPRESSION: Bilateral calcaneal spurs. Bilateral medial malleolar osteophytes, left greater than right. Otherwise unremarkable exam.
--- NOTE | ~2021-05-18 | XR_ITS ---
EXAMINATION: XR ANKLE, BILATERAL CLINICAL INFORMATION: Pain. COMPARISON: None TECHNIQUE: 3 views of each ankle. FINDINGS: RIGHT: Bone alignment is normal. No fracture or dislocation is seen. There is a small bony osteophyte projecting off the medial malleolus. The ankle mortise is normal. There are calcaneal spurs. Soft tissues are normal. LEFT: Bone alignment is normal. No fracture or dislocation is seen. There is a small bony osteophyte projecting off the medial malleolus. The ankle mortise is normal. There are calcaneal spurs. Soft tissues are normal. XR/XR ankle LT min 3V IMPRESSION: Bilateral calcaneal spurs. Bilateral medial malleolar osteophytes, left greater than right. Otherwise unremarkable exam.
== END 2021-05-18 13:56 | disposition home or self-care (01) ==
LOC: HO.XRAY 13:55
PROVIDERS: PCP Internal Medicine; Visit Provider Psychiatry & Neurology Neurology
DX: M19.90 Unspecified osteoarthritis, unspecified site (principal); M77.32 Calcaneal spur, left foot; M77.31 Calcaneal spur, right foot; M25.775 Osteophyte, left foot
CPT/HCPCS: 73610

== ENCOUNTER 2021-10-05 06:02 | Outpatient (REF) | payer MEDICAID, SELFPAY ==
[2021-10-05 11:09] LABS: MANUAL DIFF FLAG NO
[2021-10-05 11:20] LABS: Basophils Percent Auto 0.5 % (0-2); Eosinophils Absolute Auto 0.3 X10*3/uL (0.0-0.4); Eosinophils Percent Auto 4.9 % (0-4); Hemoglobin 12.6 g/dl (12.0-16.0); Imm Gran Abs Auto 0.01 X10*3/uL (0.00-0.03); Imm Gran Pct Auto 0.2 % (0.0-0.4); Lymphocytes Absolute Auto 2.1 X10*3/uL (1.2-4.9); Lymphocytes Percent Auto 33.5 % (20-40); Mean Corpuscular HGB Conc 30.7 g/dl (31.0-35.0); Mean Corpuscular Hemoglobin 25.4 pg (27.0-33.0); Mean Corpuscular Volume 82.5 fL (80.0-98.0); Mean Platelet Volume 10.2 fL (9.4-12.3); Monocytes Absolute Auto 0.5 X10*3/uL (0.1-1.2); Monocytes Percent Auto 8.3 % (2-11); Neutrophils Absolute Auto 3.4 x10*3/uL (2.0-8.3); Neutrophils Percent Auto 52.6 % (45-73); Platelet Count 230 X10*3/uL (160-400); Red Blood Count 4.97 X10*6/uL (4.20-5.50); Red Cell Distribution Width 16.2 % (11.0-16.0); White Blood Count 6.4 X10*3/uL (4.8-10.8)
[2021-10-05 11:58] LABS: Alanine Aminotransferase 18 U/L (0-31); Albumin Level 4.2 g/dL (3.5-5.0); Alkaline Phosphatase 87 U/L (39-117); Anion Gap 13 (12-20); Aspartate Amino Transferase 17 U/L (5-31); Bilirubin Total 0.4 mg/dL (0.0-1.0); Blood Urea Nitrogen 14 mg/dL (9-16); Calcium 9.8 mg/dL (8.4-10.2); Carbon Dioxide 26 mmol/L (22-29); Chloride 106 mmol/L (96-108); Cholesterol 170 mg/dL; Estimated Glomerular Filt Rate > 60; Glucose Fasting 101 mg/dL (60-99); HDL Cholesterol 53 mg/dL; LDL Cholesterol Calculated 95 mg/dl; Potassium 4.6 mmol/L (3.3-5.1); Sodium 140 mmol/L (135-145); Total Protein 7.2 g/dL (6.5-8.0); Triglycerides 114 mg/dL
[2021-10-05 12:11] LABS: TSH reflex Free T4 1.76 uIU/mL (0.32-4.0)
[2021-10-05 12:31] LABS: Vitamin B12 283 pg/mL (200-900)
[2021-10-09 12:32] LABS: Vitamin D 25-OH, D2 <4 ng/mL; Vitamin D 25-OH, D3 24 ng/mL; Vitamin D 25-OH, Total 24 ng/mL (30-100)
== END 2021-10-05 06:03 | disposition home or self-care (01) ==
LOC: HO.HMGCLDS 06:02
PROVIDERS: PCP Internal Medicine; Visit Provider Internal Medicine
DX: R10.13 Epigastric pain (principal); R00.2 Palpitations; R32 Unspecified urinary incontinence; M19.90 Unspecified osteoarthritis, unspecified site; E55.9 Vitamin D deficiency, unspecified; E66.9 Obesity, unspecified; H53.8 Other visual disturbances
CPT/HCPCS: 36415; 80053; 80061; 82306; 82607; 84443; 85025

== ENCOUNTER 2022-01-02 11:27 | Emergency (ER) | payer OTHER, SELFPAY ==
--- NOTE | ~2022-01-02 | XR_ITS ---
EXAMINATION: XR CHEST CLINICAL INFORMATION: Chest pain. COMPARISON: 02/17/2021 chest radiograph. TECHNIQUE: 2 views of the chest were obtained. FINDINGS: No significant abnormality is noted involving the heart, lungs, mediastinum, bony thorax or soft tissues. XR/XR chest 2V IMPRESSION: No acute cardiopulmonary process.
--- NOTE | 2022-01-02 11:38 | ECG_ITS ---
Test Reason : CHEST PAIN Blood Pressure : / mmHG Vent. Rate : 070 BPM Atrial Rate : 070 BPM P-R Int : 144 ms QRS Dur : 078 ms QT Int : 396 ms P-R-T Axes : 023 026 039 degrees QTc Int : 427 ms Normal sinus rhythm Nonspecific T wave abnormality Abnormal ECG When compared with ECG of 21-FEB-2016 10:26, No significant change was found Referred By: Ani Leos Electronically Signed By:ANGELA GALEANA
[2022-01-02 11:55] VITALS: BP 113/52; BP 124/71; PULSE 71; PULSE 88; RESP 18; TEMP 37; O2SAT 100; O2SAT 97; BMI 30.7
--- NOTE | 2022-01-02 12:23 | ED.CHESTPAIN ---
HPI - Chest Pain General Chief Complaint: Chest Pain Stated Complaint: CHEST PAIN Time Seen by Provider: 01/02/22 11:36 Source: patient Mode of arrival: ambulatory Limitations: language barrier (Danish speaking, medical records library professor utilized) History of Present Illness HPI narrative: Patient presents emergency department for evaluation of chest pain and back pain that is been constant for the past 2 months with varying intensity. Pain is felt to the mid lower left side of the chest and mid back. She is unable to describe how the pain feels. It is made worse with deep inspiration/breathing. Denies any alleviating factors, states she has been given medications which did not resolve the pain. She received aspirin 324 mg from EMS. Denies fevers, chills, neck pain, neck stiffness, dizziness, lightheadedness, numbness or tingling of her of her extremities, swelling in the extremities, personal history of DVT/PE, personal history of cancer, coagulation disorders, hormone usage. Related Data Previous Rx's Medication Instructions Recorded cholecalciferol (vitamin D3) 50 50 mcg PO DAILY 90 days #90 caps 04/03/21 mcg (2,000 unit) capsule acetaminophen 500 mg tablet 500 mg PO TID PRN fever 90 days 11/17/21 (Tylenol Extra Strength) #240 tabs furosemide 20 mg tablet 20 mg PO Q OTHER DAY PRN Swelling 12/09/21 of feet 30 days #15 tabs Allergies Allergy/AdvReac Type Severity Reaction Status Date / Time No Known Allergies Allergy Verified 11/17/21 14:51 Review of Systems Review of Systems: Constitutional : No Weight loss, No Fever, No Chills ENT/Mouth :? No sore throat, No Rhinorrhea Eyes: No Eye Pain, No Swelling Cardiovascular : pos Chest Pain, no SOB, no Dyspnea on Exertion, No Orthopnea, No Edema, No Palpitations Respiratory : No Cough, No Sputum Gastrointestinal : pos Nausea, No Vomiting, No Diarrhea, No abdominal Pain, No Hematochezia, No Melena Genitourinary : No Dysuria, No Urinary Frequency Musculoskeletal : No joint pain, No Myalgias, No Joint Swelling Skin : No Skin Lesions, No rash Neuro : No Weakness, No Numbness, No Dizziness, No Headache Psych : No Anxiety/Panic, No Depression Heme/Lymph: No Bruising, No Lymphadenopathy Endocrine : No Polyuria, No Polydipsia Yes all other systems are reviewed and are negative PMFSH Past Medical History Attestation statement: The following information was validated with the patient. Source: old records reviewed Medical History Visit for suture removal Surgical History H/O colonoscopy Social History Social History Household Members: Spouse Housing: House Alcohol intake: current Alcohol intake frequency: does not drink Patient Tobacco Use Status: Never used Tobacco e-Cigarette/Vaping Use: Never Used Second Hand Smoke Exposure: No Advance Directives: No Advance Directives Information Provided: Yes service: No Current occupational status: retired Cognitive needs: No Hearing needs: No Vision needs: No Physical Exam Vital Signs: Vital Signs: Last Vital Signs Temp 98.6 F 01/02/22 11:55 Pulse 71 01/02/22 11:55 Resp 18 01/02/22 11:55 BP 113/52 L 01/02/22 11:55 Pulse Ox 97 01/02/22 11:55 O2 Del Method 01/02/22 11:55 BMI result Body Mass Index 30.7 Appearance: Alert.?Oriented to person, place and time. No acute distress.?Normal affect. Eyes: Pupils equal, round and reactive to light.? ENT: Pharynx normal.?? Neck/ Back: Normal inspection.? Neck supple.??No palpable midline thoracic spine tenderness, step-offs, deformities. CVS: Heart sounds normal. Normal heart rate and rhythm.? Pulses normal.?? Respiratory: No respiratory distress.? Lung sounds clear to auscultation bilaterally?? Abdomen: Soft and non-tender. Normoactive bowel sounds. No pulsatile mass.?? Skin: Skin warm and dry.? Normal skin color.? Normal skin turgor.?? Extremities: No lower extremity edema.? No calf ttp? Neuro: Moves all extremities spontaneously. Sensation intact bilaterally. CN II-XII intact. No focal neuro deficits. Ambulates with normal steady gait. Course Course Course Narrative: Patient is a 66-year-old female with a past medical history of obesity, arthralgias, cognitive dysfunction, thoracic degenerative joint disease, dyspepsia. She presents emergency department for evaluation of chest pain/back pain is reproducible to inspiration. She has been evaluated at the walk-in clinic for intermittent palpitations, epigastric pain, and arthralgias. Reports she was given a prescription for meloxicam which was helping with her joint pains. Additionally reporting that she had some issues with swelling in her ankles for which she was given a prescription for Lasix to use as needed. She has also been seen by a neurologist her mild cognitive dysfunction. Will obtain CBC to evaluate for leukocytosis/ anemia, CMP and lipase to evaluate for abnormal electrolytes /abnormal renal function/ abnormal hepatic/biliary function, EKG and troponin to evaluate for ischemia/ACS. Chest x-ray to evaluate for consolidation/ infiltrate/ mass/ pulmonary congestion. Reevaluation(s) Reevaluation #1: Troponin <3.5, EKG reveals normal sinus rhythm no acute ischemic findings, given duration of pain, unlikely ACS. CBC and CMP are overall unremarkable. Chest x-ray reveals no acute cardiopulmonary process. D-dimer normal, unlikely pulmonary embolism, COVID-19 testing is positive, which may be attributing to her pain at this time. She is in no apparent distress, no tachypnea, hypoxia, tachycardia, or fever. Advised patient on all findings and plan of care for discharge home, given the duration of her symptoms, she would not be a candidate for any COVID-19 treatment at this time, she does report that she has received a single [employer] vaccination. Advised rest, Tylenol/NSAID, fluids, isolation for at least 5 days, and may end isolation of symptoms are improving and she is without a fever. Discussed worrisome signs and symptoms to return back to the emergency department for. Advised outpatient follow-up with her primary care provider for further evaluation and treatment. Patient verbalized understanding, was discharged in stable condition. Time: 13:32 [facility] - Chest Pain Medical Records Data Attestation: I reviewed the patient's medical records. Lab Data Attestation: I reviewed the patient's lab results. Result diagrams: 01/02/22 12:23 01/02/22 12:23 Labs: Lab Results 01/02/22 01/02/22 01/02/22 Range/Units 12:22 12:23 12:23 WBC 5.6 (4.8-10.8) X10*3/uL RBC 4.66 (4.20-5.50) X10*6/uL Hgb 12.7 (12.0-16.0) g/dl Hct 38.6 (37.0-47.0) % MCV 82.8 (80.0-98.0) fL MCH 27.3 (27.0-33.0) pg MCHC 32.9 (31.0-35.0) g/dl RDW 15.2 (11.0-16.0) % Plt Count 218 (160-400) X10*3/uL MPV 9.8 (9.4-12.3) fL Immature Gran % (Auto) 0.2 (0.0-0.4) % Neut % (Auto) 47.5 (45-73) % Lymph % (Auto) 33.4 (20-40) % [place] % (Auto) 13.1 H (2-11) % Eos % (Auto) 5.4 H (0-4) % Baso % (Auto) 0.4 (0-2) % Lymph # (Auto) 1.9 (1.2-4.9) X10*3/uL [place] # (Auto) 0.7 (0.1-1.2) X10*3/uL Eos # (Auto) 0.3 (0.0-0.4) X10*3/uL Baso # (Auto) 0.0 (0.0-0.2) X10*3/uL Abs Immat Gran (auto) 0.01 (0.00-0.03) X10*3/uL Absolute Neuts (auto) 2.7 (2.0-8.3) x10*3/uL Absolute Nucleated RBC 0.000 (0.0-0.012) X10*3/uL Nucleated RBC % (auto) 0.0 (0.0-0.2) /100WBC D-Dimer High Sensitivty < 150 NG/ML Sodium 139 (135-145) mmol/L Potassium 4.6 (3.3-5.1) mmol/L Chloride 105 (96-108) mmol/L Carbon Dioxide 24 (22-29) mmol/L Anion Gap 15 (12-20) BUN 14 (9-16) mg/dL Creatinine 0.80 (0.5-1.4) mg/dL Estim Creat Clear Calc 72.3 Estimated GFR > 60 Random Glucose 114 (60-115) mg/dL Calcium 9.3 (8.4-10.2) mg/dL Magnesium 2.3 (1.6-2.6) mg/dL Total Bilirubin < 0.2 (0.0-1.0) mg/dL AST 29 D (5-31) U/L ALT 30 (0-31) U/L Alkaline Phosphatase 95 (39-117) U/L Troponin I High Sens (<3.5-17.0) ng/L Total Protein 6.9 (6.5-8.0) g/dL Albumin 4.0 (3.5-5.0) g/dL Lipase 55 (8-78) U/L COVID-19 (ALEXX) (Negative) COVID-19 Clin Com 01/02/22 01/02/22 Range/Units 12:23 12:23 WBC (4.8-10.8) X10*3/uL RBC (4.20-5.50) X10*6/uL Hgb (12.0-16.0) g/dl Hct (37.0-47.0) % MCV (80.0-98.0) fL MCH (27.0-33.0) pg MCHC (31.0-35.0) g/dl RDW (11.0-16.0) % Plt Count (160-400) X10*3/uL MPV (9.4-12.3) fL Immature Gran % (Auto) (0.0-0.4) % Neut % (Auto) (45-73) % Lymph % (Auto) (20-40) % [place] % (Auto) (2-11) % Eos % (Auto) (0-4) % Baso % (Auto) (0-2) % Lymph # (Auto) (1.2-4.9) X10*3/uL [place] # (Auto) (0.1-1.2) X10*3/uL Eos # (Auto) (0.0-0.4) X10*3/uL Baso # (Auto) (0.0-0.2) X10*3/uL Abs Immat Gran (auto) (0.00-0.03) X10*3/uL Absolute Neuts (auto) (2.0-8.3) x10*3/uL Absolute Nucleated RBC (0.0-0.012) X10*3/uL Nucleated RBC % (auto) (0.0-0.2) /100WBC D-Dimer High Sensitivty NG/ML Sodium (135-145) mmol/L Potassium (3.3-5.1) mmol/L Chloride (96-108) mmol/L Carbon Dioxide (22-29) mmol/L Anion Gap (12-20) BUN (9-16) mg/dL Creatinine (0.5-1.4) mg/dL Estim Creat Clear Calc Estimated GFR Random Glucose (60-115) mg/dL Calcium (8.4-10.2) mg/dL Magnesium (1.6-2.6) mg/dL Total Bilirubin (0.0-1.0) mg/dL AST (5-31) U/L ALT (0-31) U/L Alkaline Phosphatase (39-117) U/L Troponin I High Sens < 3.5 (<3.5-17.0) ng/L Total Protein (6.5-8.0) g/dL Albumin (3.5-5.0) g/dL Lipase (8-78) U/L COVID-19 (ALEXX) Positive A (Negative) COVID-19 Clin Com See Note Imaging Data Chest x-ray: Radiologist's impression: XR/XR chest 2V IMPRESSION: No acute cardiopulmonary process. ECG Data ECG #1: Attestation: I personally reviewed and interpreted this ECG as follows: ECG interpretation date: 01/02/22 Prior ECG tracings: available for review Interpretation: Rate: 70 Rhythm:? Normal sinus rhythm [place]:? Normal Normal P waves.? Normal MALLY.?? Normal QRS complex.?? ST T wave :??No ST elevation, no ST depression, no T-wave inversion qTC: 427 prior studies:?2016 The study has been interpreted contemporaneously by me. Discharge Plan Discharge Clinical Impression: COVID-19, Chest pain Patient Disposition: Home, Self-Care Instructions: Noncardiac Chest Pain (ED), COVID-19 (Coronavirus Disease 2019) (ED) Additional Instructions: As we discussed your COVID-19 testing today was positive. You should isolate for at least 5 days, you can end isolation after 5 days if you have improving symptoms, and do not have fever for 24 hours. You can take ibuprofen 200 mg, 3 tablets (600mg) every 6-8 hours as needed for pain, in addition to Tylenol 500 mg, 2 tablets (1,000mg) every 4-6 hours as needed for pain, but not to exceed 3 doses daily (3,000mg).? Please contact your primary care provider and arrange for a follow-up visit regarding your ongoing pain. Return to the emergency department with any new or worsening symptoms or concerns. Prescriptions: No Action furosemide 20 mg tablet 20 mg PO Q OTHER DAY PRN (Reason: Swelling of feet) 30 Days Qty: 15 0RF cholecalciferol (vitamin D3) 50 mcg (2,000 unit) capsule 50 mcg PO DAILY 90 Days Qty: 90 3RF acetaminophen [Tylenol Extra Strength] 500 mg tablet 500 mg PO TID PRN (Reason: fever) 90 Days Qty: 240 0RF Referrals: Keeley Dugan MD [Primary Care Provider] -
[2022-01-02 12:28] LABS: MANUAL DIFF FLAG NO
[2022-01-02 12:34] LABS: Basophils Percent Auto 0.4 % (0-2); Eosinophils Absolute Auto 0.3 X10*3/uL (0.0-0.4); Eosinophils Percent Auto 5.4 % (0-4); Hematocrit 38.6 % (37.0-47.0); Hemoglobin 12.7 g/dl (12.0-16.0); Imm Gran Abs Auto 0.01 X10*3/uL (0.00-0.03); Imm Gran Pct Auto 0.2 % (0.0-0.4); Lymphocytes Absolute Auto 1.9 X10*3/uL (1.2-4.9); Lymphocytes Percent Auto 33.4 % (20-40); Mean Corpuscular HGB Conc 32.9 g/dl (31.0-35.0); Mean Corpuscular Hemoglobin 27.3 pg (27.0-33.0); Mean Corpuscular Volume 82.8 fL (80.0-98.0); Mean Platelet Volume 9.8 fL (9.4-12.3); Monocytes Absolute Auto 0.7 X10*3/uL (0.1-1.2); Monocytes Percent Auto 13.1 % (2-11); Neutrophils Absolute Auto 2.7 x10*3/uL (2.0-8.3); Neutrophils Percent Auto 47.5 % (45-73); Platelet Count 218 X10*3/uL (160-400); Red Blood Count 4.66 X10*6/uL (4.20-5.50); Red Cell Distribution Width 15.2 % (11.0-16.0); White Blood Count 5.6 X10*3/uL (4.8-10.8)
[2022-01-02 12:37] LABS: COVID-19 Test Positive (Negative); IDNOW Serial# 55D5AD1C
[2022-01-02 12:50] LABS: D Dimer High Sensitivity < 150 NG/ML
[2022-01-02 12:54] LABS: Troponin-I High Sensitivity < 3.5 ng/L (<3.5-17.0)
[2022-01-02 13:06] LABS: Alanine Aminotransferase 30 U/L (0-31); Alkaline Phosphatase 95 U/L (39-117); Anion Gap 15 (12-20); Aspartate Amino Transferase 29 U/L (5-31); Bilirubin Total < 0.2 mg/dL (0.0-1.0); Blood Urea Nitrogen 14 mg/dL (9-16); Calcium 9.3 mg/dL (8.4-10.2); Carbon Dioxide 24 mmol/L (22-29); Chloride 105 mmol/L (96-108); Creatinine Clr Calc Pharmacy 72.3; Estimated Glomerular Filt Rate > 60; Glucose Random 114 mg/dL (60-115); Magnesium 2.3 mg/dL (1.6-2.6); Potassium 4.6 mmol/L (3.3-5.1); Sodium 139 mmol/L (135-145); Total Protein 6.9 g/dL (6.5-8.0)
[2022-01-02 13:42] LABS: Lipase 55 U/L (8-78)
== END 2022-01-02 15:44 | disposition home or self-care (01) ==
PROVIDERS: Nurse Practitioner Family; Emergency Provider Emergency Medicine; PCP Internal Medicine
DX: U07.1 COVID-19 (principal); R07.9 Chest pain, unspecified; Z20.822 Contact with and (suspected) exposure to COVID-19
CPT/HCPCS: 36415; 71046; 80053; 83690; 83735; 84484; 85025; 85379; 87635; 93005; 99283; 99284

== ENCOUNTER 2022-02-11 12:02 | Outpatient (REF) | payer OTHER, SELFPAY ==
--- NOTE | ~2022-02-11 | XR_ITS ---
EXAMINATION: X-RAY BILATERAL KNEES LEFT KNEE 2 VIEWS. RIGHT KNEE 2 VIEWS. CLINICAL INFORMATION: Pain COMPARISON: None TECHNIQUE: AP bilateral knees one view. Left knee 2 views. Right knee 2 views. FINDINGS: Right knee: Moderate to severe medial and patellofemoral arthritis, joint space loss, osteophytes. No evidence of fracture or dislocation. No significant effusion. Left knee: Moderate to severe medial and patellofemoral compartment arthritis, joint space loss, osteophytes. Marginal spur in the lateral compartment. Probable loose bodies posteriorly. No fracture or dislocation. No effusion.. XR/XR knee standing BI IMPRESSION: Right knee: Tricompartment osteoarthritis. Moderate to severe medial and patellofemoral arthritis. Left knee: Tricompartment osteoarthritis. Moderate to severe medial and patellofemoral arthritis. Probable loose bodies.
--- NOTE | ~2022-02-11 | XR_ITS ---
EXAMINATION: X-RAY BILATERAL KNEES LEFT KNEE 2 VIEWS. RIGHT KNEE 2 VIEWS. CLINICAL INFORMATION: Pain COMPARISON: None TECHNIQUE: AP bilateral knees one view. Left knee 2 views. Right knee 2 views. FINDINGS: Right knee: Moderate to severe medial and patellofemoral arthritis, joint space loss, osteophytes. No evidence of fracture or dislocation. No significant effusion. Left knee: Moderate to severe medial and patellofemoral compartment arthritis, joint space loss, osteophytes. Marginal spur in the lateral compartment. Probable loose bodies posteriorly. No fracture or dislocation. No effusion.. XR/XR knee LT 2V IMPRESSION: Right knee: Tricompartment osteoarthritis. Moderate to severe medial and patellofemoral arthritis. Left knee: Tricompartment osteoarthritis. Moderate to severe medial and patellofemoral arthritis. Probable loose bodies.
--- NOTE | ~2022-02-11 | XR_ITS ---
EXAMINATION: X-RAY BILATERAL KNEES LEFT KNEE 2 VIEWS. RIGHT KNEE 2 VIEWS. CLINICAL INFORMATION: Pain COMPARISON: None TECHNIQUE: AP bilateral knees one view. Left knee 2 views. Right knee 2 views. FINDINGS: Right knee: Moderate to severe medial and patellofemoral arthritis, joint space loss, osteophytes. No evidence of fracture or dislocation. No significant effusion. Left knee: Moderate to severe medial and patellofemoral compartment arthritis, joint space loss, osteophytes. Marginal spur in the lateral compartment. Probable loose bodies posteriorly. No fracture or dislocation. No effusion.. XR/XR knee RT 2V IMPRESSION: Right knee: Tricompartment osteoarthritis. Moderate to severe medial and patellofemoral arthritis. Left knee: Tricompartment osteoarthritis. Moderate to severe medial and patellofemoral arthritis. Probable loose bodies.
== END 2022-02-11 12:03 | disposition home or self-care (01) ==
LOC: HO.HOSX 12:02
PROVIDERS: Visit Provider Orthopaedic Surgery
DX: M17.12 Unilateral primary osteoarthritis, left knee (principal); M25.561 Pain in right knee
CPT/HCPCS: 73560; 73565; 99212

== ENCOUNTER 2022-06-19 11:13 | Outpatient (REF) | payer OTHER, SELFPAY ==
--- NOTE | ~2022-06-19 | XR_ITS ---
EXAMINATION: XR ABDOMEN COMPLETE CLINICAL INDICATION: Abdominal pain COMPARISON: None TECHNIQUE: KUB of the abdomen. FINDINGS: No dilated loops of large or small bowel are evident. Stool and gas is seen within the colon. No abnormal calcifications along the expected paths of the ureters and kidneys identified. No evidence of bowel wall thickening. Psoas margins are intact. No significant bony abnormality appreciated. XR/XR abdomen min 2V IMPRESSION: No evidence of ileus or obstruction.
[2022-06-19 13:36] LABS: Hemoglobin 13.1 g/dl (12.0-16.0); Mean Corpuscular Hemoglobin 26.7 pg (27.0-33.0); Mean Corpuscular Volume 83.5 fL (80.0-98.0); Mean Platelet Volume 10.5 fL (9.4-12.3); Platelet Count 310 X10*3/uL (160-400); Red Blood Count 4.91 X10*6/uL (4.20-5.50); Red Cell Distribution Width 14.2 % (11.0-16.0); White Blood Count 8.8 X10*3/uL (4.8-10.8)
[2022-06-19 13:58] LABS: Alanine Aminotransferase 17 U/L (0-31); Albumin Level 4.3 g/dL (3.5-5.0); Alkaline Phosphatase 104 U/L (39-117); Anion Gap 15 (12-20); Aspartate Amino Transferase 19 U/L (5-31); Bilirubin Direct < 0.2 mg/dL (0.0-0.5); Bilirubin Total 0.2 mg/dL (0.0-1.0); Blood Urea Nitrogen 22 mg/dL (9-16); Calcium 10.1 mg/dL (8.4-10.2); Carbon Dioxide 25 mmol/L (22-29); Chloride 105 mmol/L (96-108); Cholesterol 173 mg/dL; Estimated Glomerular Filt Rate 57; Glucose Random 107 mg/dL (60-115); HDL Cholesterol 57 mg/dL; LDL Cholesterol Calculated 98 mg/dl; Potassium 5.2 mmol/L (3.3-5.1); Sodium 140 mmol/L (135-145); Total Protein 7.2 g/dL (6.5-8.0); Triglycerides 93 mg/dL
== END 2022-06-19 11:14 | disposition home or self-care (01) ==
LOC: HO.HMGCX 11:13
PROVIDERS: PCP Internal Medicine; Visit Provider Internal Medicine
DX: R10.9 Unspecified abdominal pain (principal)
CPT/HCPCS: 36415; 74019; 80048; 80061; 80076; 85027

== ENCOUNTER 2022-10-30 06:31 | Outpatient (REF) | payer OTHER, SELFPAY ==
[2022-10-30 11:17] LABS: MANUAL DIFF FLAG NO
[2022-10-30 11:20] LABS: Basophils Percent Auto 0.5 % (0-2); Eosinophils Absolute Auto 0.4 X10*3/uL (0.0-0.4); Hemoglobin 13.2 g/dl (12.0-16.0); Imm Gran Abs Auto 0.02 X10*3/uL (0.00-0.03); Imm Gran Pct Auto 0.3 % (0.0-0.4); Lymphocytes Absolute Auto 2.4 X10*3/uL (1.2-4.9); Lymphocytes Percent Auto 39.2 % (20-40); Mean Corpuscular HGB Conc 31.4 g/dl (31.0-35.0); Mean Corpuscular Hemoglobin 26.5 pg (27.0-33.0); Mean Corpuscular Volume 84.3 fL (80.0-98.0); Mean Platelet Volume 11.2 fL (9.4-12.3); Monocytes Absolute Auto 0.5 X10*3/uL (0.1-1.2); Monocytes Percent Auto 7.8 % (2-11); Neutrophils Absolute Auto 2.8 x10*3/uL (2.0-8.3); Neutrophils Percent Auto 46.2 % (45-73); Platelet Count 239 X10*3/uL (160-400); Red Blood Count 4.98 X10*6/uL (4.20-5.50); Red Cell Distribution Width 15.1 % (11.0-16.0)
== END 2022-10-30 06:32 | disposition home or self-care (01) ==
LOC: HO.HMGCLDS 06:31
PROVIDERS: PCP Internal Medicine; Visit Provider Internal Medicine
DX: E55.9 Vitamin D deficiency, unspecified (principal); E66.9 Obesity, unspecified; G89.29 Other chronic pain; M19.90 Unspecified osteoarthritis, unspecified site; M54.9 Dorsalgia, unspecified; R10.13 Epigastric pain; T78.40XA Allergy, unspecified, initial encounter
CPT/HCPCS: 36415; 80053; 82306; 82607; 83036; 83690; 84443; 85025

== ENCOUNTER 2023-01-25 14:38 | Outpatient (AMB) | payer OTHER, SELFPAY ==
--- NOTE | 2023-01-25 14:41 | MHC.PC.OV ---
Vital Signs 01/25/23 14:53 Height 5 ft 4 in Weight 194 lb BMI 33.3 BP 100/60 Blood Pressure Location Rt brachial Position Sitting Pulse 77 Pulse Source Pulse Oximeter Pulse Oximetry (%) 97 Oxygen Delivery Method Room Air Intake Visit Reasons: 3 month follow up Allergies No Known Allergies Allergy (Verified 01/25/23 14:53) Medication List - Last Reconciled 01/25/23 by Keeley Dugan MD acetaminophen (Tylenol Extra Strength) 500 mg PO TID PRN 90 days cetirizine (All Day Allergy (cetirizine)) 10 mg PO DAILY PRN 90 days cholecalciferol (vitamin D3) 50 mcg PO DAILY 90 days diclofenac sodium 1% (Arthritis Pain (diclofenac)) 2 grams topical QID 30 days diclofenac sodium 50 mg PO BID furosemide 20 mg PO Q OTHER DAY PRN 30 days omeprazole 10 mg PO DAILY 90 days Tobacco use date assessed: 01/25/23 Fall risk assessment: No Falls in past year Last assessed Fall Risk: 01/25/23 Dental Screening Dental Screen Date: 01/25/23 Did you have a dental visit in the last 12 months?: No Did you have a dental problem in the last 6 months where you did not have access to dental care?: No Was dental information given to patient?: Patient declined HPI 3 month follow up HPI Details Patient is 67-year-old female came in today for her regular follow-up appointment Patient continued to have aches and pains in her joints she has osteoarthritis She is complaining of pain right hand and is requesting occupational therapy which I have ordered for her. Labs were done October of this year new set of lab order placed to be done in April Continue vitamin-D Patient is requesting medication for urinary urgency, busy care sent Patient continued to be depressed also I have prescribed Lexapro in the past she took the medication and when she ran out she stopped it. Refill sent again. She has developed rash on her right forearm which is pruritic I sent triamcinolone cream for the patient. Patient is complaining of pain in her feet especially in the morning, I told to take Tylenol at night, she does take 1 Tylenol in the morning BMI is elevated 33.3, patient is having difficulty losing weight even though she walks 1 mi every day Follow-up in April [facility] Medical History Visit for suture removal Surgical History H/O colonoscopy Social History Household Members: Spouse Housing: House Alcohol intake: current Alcohol intake frequency: does not drink Patient Tobacco Use Status: Never used Tobacco e-Cigarette/Vaping Use: Never Used Second Hand Smoke Exposure: No service: No Current occupational status: retired Cognitive needs: No Hearing needs: No Vision needs: No Questionnaire AUDIT C Alcohol Use Questionnaire (AUDIT-C) 1. How often do you have a drink containing alcohol?: Never 3. How often do you have six or more drinks on one occasion?: Never Total Score: 0 Score Reviewed/Action Taken: Yes Review of Systems Const Denies chills and Denies fever(s) ENT Denies epistaxis and Denies nasal discharge Card Denies chest pain Resp Denies chest congestion, Denies cough and Denies hemoptysis GI Denies diarrhea and Denies nausea Skin/Breast Denies rash Neuro Reports no additional complaints Psych Reports no additional complaints Endo Reports no additional complaints Physical exam (Primary Care) Vital Signs: Last Vital Signs Pulse 77 01/25/23 14:53 BP 100/60 01/25/23 14:53 Pulse Ox 97 01/25/23 14:53 Oxygen Delivery Method Room Air 01/25/23 14:53 BMI result Body Mass Index 33.3 Tobacco/Smoking Status: Tobacco use Status Tobacco use date assessed 01/25/23 01/25/23 14:43 Patient Tobacco Use Status Never used Tobacco 01/25/23 14:43 e-Cigarette/Vaping Use Never Used 01/25/23 14:43 Const General: cooperative, comfortable and no acute distress Orientation/consciousness: patient oriented x3 HENMT Head: Yes normocephalic Eyes General: appearance normal, both eyes and all related structures Neck Neck: Yes supple Resp Effort & Inspection: normal respiratory effort, no cough and no stridor Cardio Rhythm: regular rhythm Heart sounds: S1 normal heart sound present and S2 normal heart sound present Skin General skin exam: turgor normal Neuro General: patient oriented x3, tone normal and moves all extremities Extrem Right lower extremity: no edema Left lower extremity: no edema Assessment and Plan Assessment & Plan (1) Hand pain, left: Code(s): M79.642 - Pain in left hand (2) Obesity: Code(s): E66.9 - Obesity, unspecified Qualifiers: Obesity type: due to excess calories Obesity classification: adult class 1 (BMI 30 - 34.9) Serious obesity comorbidity presence: with serious comorbidity Body mass index: BMI 33.0-33.9 Qualified Code(s): E66.09 - Other obesity due to excess calories; Z68.33 - Body mass index [BMI] 33.0-33.9, adult (3) Vitamin D deficiency: Code(s): E55.9 - Vitamin D deficiency, unspecified (4) Major depression, recurrent: Code(s): F33.9 - Major depressive disorder, recurrent, unspecified Qualifiers: Active/Remission status: in partial remission Qualified Code(s): F33.41 - Major depressive disorder, recurrent, in partial remission (5) Osteoarthritis of left knee: Code(s): M17.12 - Unilateral primary osteoarthritis, left knee Qualifiers: Osteoarthritis type: primary Qualified Code(s): M17.12 - Unilateral primary osteoarthritis, left knee (6) Pre-diabetes: Code(s): R73.03 - Prediabetes (7) Memory deficit: Code(s): R41.3 - Other amnesia (8) Dyspepsia: Code(s): R10.13 - Epigastric pain Plan Patient is 67-year-old female came in today for her regular follow-up appointment Patient continued to have aches and pains in her joints she has osteoarthritis She is complaining of pain right hand and is requesting occupational therapy which I have ordered for her. Labs were done October of this year new set of lab order placed to be done in April Continue vitamin-D Patient is requesting medication for urinary urgency, busy care sent Patient continued to be depressed also I have prescribed Lexapro in the past she took the medication and when she ran out she stopped it. Refill sent again. She has developed rash on her right forearm which is pruritic I sent triamcinolone cream for the patient. Patient is complaining of pain in her feet especially in the morning, I told to take Tylenol at night, she does take 1 Tylenol in the morning BMI is elevated 33.3, patient is having difficulty losing weight even though she walks 1 mi every day Continued to complain of difficulty with her memory, patient has been evaluated by Neurology already Continued to have pain in her knees as well Follow-up in April Orders: Orders Complete Blood Count Auto Diff Today E55.9 - Vitamin D deficiency, unspecified, E66.9 - Obesity, unspecified, F33.9 - Major depressive disorder, recurrent, unspecified, M17.12 - Unilateral primary osteoarthritis, left knee, M79.642 - Pain in left hand, R10.13 - Epigastric pain, R41.3 - Other amnesia, R73.03 - Prediabetes Vitamin D 25-OH (D2 and D3) Today E55.9 - Vitamin D deficiency, unspecified, E66.9 - Obesity, unspecified, F33.9 - Major depressive disorder, recurrent, unspecified, M17.12 - Unilateral primary osteoarthritis, left knee, M79.642 - Pain in left hand, R10.13 - Epigastric pain, R41.3 - Other amnesia, R73.03 - Prediabetes OT Evaluation and Treatment Today M79.642 - Pain in left hand Comprehensive [place]. Panel Fast Today E55.9 - Vitamin D deficiency, unspecified, E66.9 - Obesity, unspecified, F33.9 - Major depressive disorder, recurrent, unspecified, M17.12 - Unilateral primary osteoarthritis, left knee, M79.642 - Pain in left hand, R10.13 - Epigastric pain, R41.3 - Other amnesia, R73.03 - Prediabetes Lipid Panel Today E55.9 - Vitamin D deficiency, unspecified, E66.9 - Obesity, unspecified, F33.9 - Major depressive disorder, recurrent, unspecified, M17.12 - Unilateral primary osteoarthritis, left knee, M79.642 - Pain in left hand, R10.13 - Epigastric pain, R41.3 - Other amnesia, R73.03 - Prediabetes Vitamin B12 Today E55.9 - Vitamin D deficiency, unspecified, E66.9 - Obesity, unspecified, F33.9 - Major depressive disorder, recurrent, unspecified, M17.12 - Unilateral primary osteoarthritis, left knee, M79.642 - Pain in left hand, R10.13 - Epigastric pain, R41.3 - Other amnesia, R73.03 - Prediabetes Medications: New solifenacin (Vesicare) 10 mg PO DAILY 90 tabs 0RF escitalopram oxalate (Lexapro) 10 mg PO DAILY 90 tabs 0RF triamcinolone acetonide 0.1% 1 appl topical DAILY 30 days 80 grams 0RF Refilled furosemide 20 mg PO Q OTHER DAY 30 days PRN 30 tabs 0RF Swelling of feet cetirizine (All Day Allergy (cetirizine)) 10 mg PO DAILY 90 days PRN 90 caps 0RF allergy symptoms cholecalciferol (vitamin D3) 50 mcg PO DAILY 90 days 90 caps 3RF E55.9 - Vitamin D deficiency, unspecified Discontinued diclofenac sodium Discontinued Reason: Doctor's Order 50 mg PO BID 30 tabs 3RF Coding Level of Care Code Est Pt Level 4 (99400) Diagnoses Hand pain, left M79.642 Class 1 obesity due to excess calories with serious comorbidity and body mass index (BMI) of 33.0 to 33.9 in adult E66.09; Z68.33 Obesity type: due to excess calories Obesity classification: adult class 1 (BMI 30 - 34.9) Serious obesity comorbidity presence: with serious comorbidity Body mass index: BMI 33.0-33.9 Vitamin D deficiency E55.9 Recurrent major depressive disorder, in partial remission F33.41 Active/Remission status: in partial remission Primary osteoarthritis of left knee M17.12 Osteoarthritis type: primary Pre-diabetes R73.03 Memory deficit R41.3 Dyspepsia R10.13
[2023-01-25 14:53] VITALS: BP 100/60; PULSE 77; O2SAT 97; BMI 33.3
== END 2023-01-25 15:32 | disposition home or self-care (01) ==
PROVIDERS: PCP Internal Medicine; Visit Provider Internal Medicine
DX: M17.12 Unilateral primary osteoarthritis, left knee (principal); F33.41 Major depressive disorder, recurrent, in partial remission; E66.09 Other obesity due to excess calories; Z68.33 Body mass index [BMI] 33.0-33.9, adult; E55.9 Vitamin D deficiency, unspecified; M79.642 Pain in left hand; R73.03 Prediabetes; R41.3 Other amnesia; R10.13 Epigastric pain
CPT/HCPCS: 99214

== ENCOUNTER 2023-03-15 13:09 | Outpatient (AMB) | payer OTHER, SELFPAY ==
--- NOTE | 2023-03-15 12:54 | MHC.PC.OV ---
Vital Signs 03/15/23 12:55 Height 5 ft 4 in Weight 196 lb 2 oz BMI 33.7 BP 100/58 L Blood Pressure Location Rt brachial Position Sitting Pulse 83 Pulse Source Pulse Oximeter Pulse Oximetry (%) 99 Oxygen Delivery Method Room Air Intake Visit Reasons: Annual PE Allergies No Known Allergies Allergy (Verified 03/15/23 13:13) Medication List - Last Reconciled 03/15/23 by Keeley Dugan MD acetaminophen (Tylenol Extra Strength) 500 mg PO TID PRN 90 days cetirizine (All Day Allergy (cetirizine)) 10 mg PO DAILY PRN 90 days cholecalciferol (vitamin D3) 50 mcg PO DAILY 90 days diclofenac sodium 1% (Arthritis Pain (diclofenac)) 2 grams topical QID 30 days escitalopram oxalate (Lexapro) 10 mg PO DAILY furosemide 20 mg PO Q OTHER DAY 90 days omeprazole 10 mg PO DAILY 90 days solifenacin (Vesicare) 10 mg PO DAILY triamcinolone acetonide 0.1% 1 appl topical DAILY 30 days Tobacco use date assessed: 03/15/23 Fall risk assessment: No Falls in past year Last assessed Fall Risk: 03/15/23 Dental Screening Dental Screen Date: 03/15/23 Did you have a dental visit in the last 12 months?: Yes Did you have a dental problem in the last 6 months where you did not have access to dental care?: No Was dental information given to patient?: Patient has dentist HPI Annual PE HPI Details Patient is 67 year female came in today for physical exam Due for mammogram order placed She does not want a see OBGYN Declining to to colonoscopy Continued to have discomfort epigastric area patient have slight ventral hernia as well She has appointment with gastroenterology coming up in April Patient says that the nurse came home through her insurance company and told her to stop all her medications so she did Now having more burning sensation she was on omeprazole before I have sent refill Bladder disorder: With stress incontinence patient did well with [facility] refill sent Allergies are stable Continued to suffer from multiple joint discomfort secondary to osteoarthritis Patient is also obese with BMI of 33.7 having difficulty losing weight. Lab order placed to be done fasting Patient is prediabetic we will be monitoring hemoglobin A1c She is complaining of chest discomfort waited EKG today which showed normal sinus rhythm no acute findings, same as the EKG of last year Depression/anxiety disorder: Continue Escitalopram daily. Follow-up 3 months [facility] Medical History Visit for suture removal Surgical History H/O colonoscopy Social History Household Members: Spouse Housing: House Alcohol intake: current Alcohol intake frequency: does not drink Patient Tobacco Use Status: Never used Tobacco e-Cigarette/Vaping Use: Never Used Second Hand Smoke Exposure: No service: No Current occupational status: retired Cognitive needs: No Hearing needs: No Vision needs: No Questionnaire PHQ-9 Over the last 2 weeks, how often have you been bothered by any of the following problems? 1. Little interest or pleasure in doing things: not at all 2. Feeling down, depressed, or hopeless: not at all 3. Trouble falling or staying asleep, or sleeping too much: not at all 4. Feeling tired or having little energy: not at all 5. Poor appetite or overeating: not at all 6. Feeling bad about yourself - or that you are a failure or have let yourself or your family down: not at all 7. Trouble concentrating on things, such as reading the newspaper or watching television: not at all 8. Moving or speaking so slowly that other people could have noticed. Or the opposite - being so fidgety or restless that you have been moving around a lot more than usual: not at all 9. Thoughts that you would be better off or of hurting yourself in some way: not at all Total score: 0 Depression Screening Interpretation: Negative Depression Screening Done: Yes 31476 - PHQ-9 Billing: Yes Source: Developed by Drs. Yusuf Bliss, Adele Norris, Mario Vincent and colleagues, with an educational nba from [employer]. AUDIT C Alcohol Use Questionnaire (AUDIT-C) 1. How often do you have a drink containing alcohol?: Never 3. How often do you have six or more drinks on one occasion?: Never Total Score: 0 Score Reviewed/Action Taken: Yes Review of Systems Const Denies chills, Denies fever(s) and Denies headache(s) Eyes Denies blurry vision ENT Denies headache(s), Denies nasal discharge, Denies nasal obstruction, Denies odynophagia and Denies sinus pain Card Denies chest pain at rest and Denies chest pain with activity Resp Denies cough and Denies hemoptysis GI Denies diarrhea, Denies odynophagia, Denies vomiting and Denies hematemesis Reports as per HPI Musc Denies abnormal gait Skin/Breast Reports as per HPI Neuro Denies Neuro-related abnormal movements, Denies Abnormal speech present, Denies abnormal gait, Denies headache(s) and Denies Sensory deficit (Neuro) Psych Denies mood swings and Denies paranoia Endo Reports as per HPI Shane/Lymph Reports as per HPI Aller/Immun Reports as per HPI Physical exam (Primary Care) Vital Signs: Last Vital Signs Pulse 83 03/15/23 12:55 BP 100/58 L 03/15/23 12:55 Pulse Ox 99 03/15/23 12:55 Oxygen Delivery Method Room Air 03/15/23 12:55 BMI result Body Mass Index 33.7 Tobacco/Smoking Status: Tobacco use Status Tobacco use date assessed 03/15/23 03/15/23 12:55 Patient Tobacco Use Status Never used Tobacco 03/15/23 12:55 e-Cigarette/Vaping Use Never Used 03/15/23 12:55 Depression Screening Interpretation: Negative Const General: cooperative, comfortable and no acute distress Orientation/consciousness: patient oriented x3 HENMT Head: Yes normocephalic and Yes atraumatic Eyes General: appearance normal, both eyes and all related structures Pupils: Equal, round and reactive pupils present EOM: EOMs intact bilaterally Neck Neck: Yes supple and No lymphadenopathy Thyroid: Thyroid normal Lymphatic: no lymphadenopathy noted Chest Breast/axilla palpation: normal palpation of the breasts Resp Effort & Inspection: normal respiratory effort and able to speak in complete sentences Auscultation: clear to auscultation bilaterally Cardio Heart sounds: S1 normal heart sound present and S2 normal heart sound present GI Other: Small ventral hernia above umbilicus without any discomfort Palpation (GI): Soft to palpation and nontender Auscultation: normal bowel sounds General: Yes no CVA tenderness Back/Spine/Pelvis Back: no CVA tenderness Skin General skin exam: elasticity normal and turgor normal Neuro General: patient oriented x3 and gait normal Cranial nerves: Yes Equal, round and reactive pupils present Speech: No Abnormal speech present Sensory Exam: No Sensory deficit (Neuro) Coordination: tandem gait normal and Romberg test negative Extrem General: Yes normal exam except as noted and No edema Assessment and Plan Assessment & Plan (1) Encounter for general adult medical examination with abnormal findings: Code(s): Z00.01 - Encounter for general adult medical examination with abnormal findings (2) Chest discomfort: Code(s): R07.89 - Other chest pain (3) Pre-diabetes: Code(s): R73.03 - Prediabetes (4) Osteoarthritis of multiple joints: Code(s): M15.9 - Polyosteoarthritis, unspecified Qualifiers: Osteoarthritis type: primary Qualified Code(s): M15.9 - Polyosteoarthritis, unspecified (5) Obesity due to excess calories: Code(s): E66.09 - Other obesity due to excess calories Qualifiers: Obesity classification: adult class 1 (BMI 30 - 34.9) Serious obesity comorbidity presence: with serious comorbidity Body mass index: BMI 33.0-33.9 Qualified Code(s): E66.09 - Other obesity due to excess calories; Z68.33 - Body mass index [BMI] 33.0-33.9, adult (6) Major depression, recurrent: Code(s): F33.9 - Major depressive disorder, recurrent, unspecified Qualifiers: Active/Remission status: in partial remission Qualified Code(s): F33.41 - Major depressive disorder, recurrent, in partial remission (7) Epigastric pain: Code(s): R10.13 - Epigastric pain (8) Vitamin D deficiency: Code(s): E55.9 - Vitamin D deficiency, unspecified (9) Dyspepsia: Code(s): R10.13 - Epigastric pain (10) Incontinence of urine: Code(s): R32 - Unspecified urinary incontinence Qualifiers: Urinary Incontinence type: mixed stress and urge incontinence Qualified Code(s): N39.46 - Mixed incontinence (11) Ventral hernia: Code(s): K43.9 - Ventral hernia without obstruction or gangrene Qualifiers: Obstruction and gangrene presence: without obstruction or gangrene Qualified Code(s): K43.9 - Ventral hernia without obstruction or gangrene (12) Environmental allergies: Code(s): Z91.09 - Other allergy status, other than to drugs and biological substances (13) Headache syndrome: Code(s): G44.89 - Other headache syndrome (14) Memory deficit: Code(s): R41.3 - Other amnesia (15) Bilateral swelling of feet: Code(s): M79.89 - Other specified soft tissue disorders (16) Difficulty sleeping: Code(s): G47.9 - Sleep disorder, unspecified Plan Patient is 67 year female came in today for physical exam Due for mammogram order placed She does not want a see OBGYN Declining to to colonoscopy Continued to have discomfort epigastric area patient have slight ventral hernia as well She has appointment with gastroenterology coming up in April Patient says that the nurse came home through her insurance company and told her to stop all her medications so she did Now having more burning sensation she was on omeprazole before I have sent refill Bladder disorder: With stress incontinence patient did well with [facility] refill sent Allergies are stable Continued to suffer from multiple joint discomfort secondary to osteoarthritis Patient is also obese with BMI of 33.7 having difficulty losing weight. Lab order placed to be done fasting Patient is prediabetic we will be monitoring hemoglobin A1c She is complaining of chest discomfort waited EKG today which showed normal sinus rhythm no acute findings, same as the EKG of last year Depression/anxiety disorder: Continue Escitalopram daily. Follow-up 3 months Orders: Orders Complete Blood Count Auto Diff Today E55.9 - Vitamin D deficiency, unspecified, E66.09 - Other obesity due to excess calories, F33.9 - Major depressive disorder, recurrent, unspecified, M15.9 - Polyosteoarthritis, unspecified, R07.89 - Other chest pain, R10.13 - Epigastric pain, R32 - Unspecified urinary incontinence, R73.03 - Prediabetes, T78.40XA - Allergy, unspecified, initial encounter, Z00.01 - Encounter for general adult medical examination with abnormal findings Comprehensive [place]. Panel Fast Today E55.9 - Vitamin D deficiency, unspecified, E66.09 - Other obesity due to excess calories, F33.9 - Major depressive disorder, recurrent, unspecified, M15.9 - Polyosteoarthritis, unspecified, R07.89 - Other chest pain, R10.13 - Epigastric pain, R32 - Unspecified urinary incontinence, R73.03 - Prediabetes, T78.40XA - Allergy, unspecified, initial encounter, Z00.01 - Encounter for general adult medical examination with abnormal findings Vitamin D 25-OH (D2 and D3) Today E55.9 - Vitamin D deficiency, unspecified, E66.09 - Other obesity due to excess calories, F33.9 - Major depressive disorder, recurrent, unspecified, M15.9 - Polyosteoarthritis, unspecified, R07.89 - Other chest pain, R10.13 - Epigastric pain, R32 - Unspecified urinary incontinence, R73.03 - Prediabetes, T78.40XA - Allergy, unspecified, initial encounter, Z00.01 - Encounter for general adult medical examination with abnormal findings Hemoglobin A1c Today E55.9 - Vitamin D deficiency, unspecified, E66.09 - Other obesity due to excess calories, F33.9 - Major depressive disorder, recurrent, unspecified, M15.9 - Polyosteoarthritis, unspecified, R07.89 - Other chest pain, R10.13 - Epigastric pain, R32 - Unspecified urinary incontinence, R73.03 - Prediabetes, T78.40XA - Allergy, unspecified, initial encounter, Z00.01 - Encounter for general adult medical examination with abnormal findings Lipid Panel Today E55.9 - Vitamin D deficiency, unspecified, E66.09 - Other obesity due to excess calories, F33.9 - Major depressive disorder, recurrent, unspecified, M15.9 - Polyosteoarthritis, unspecified, R07.89 - Other chest pain, R10.13 - Epigastric pain, R32 - Unspecified urinary incontinence, R73.03 - Prediabetes, T78.40XA - Allergy, unspecified, initial encounter, Z00.01 - Encounter for general adult medical examination with abnormal findings TSH reflex Free T4 Today E55.9 - Vitamin D deficiency, unspecified, E66.09 - Other obesity due to excess calories, F33.9 - Major depressive disorder, recurrent, unspecified, M15.9 - Polyosteoarthritis, unspecified, R07.89 - Other chest pain, R10.13 - Epigastric pain, R32 - Unspecified urinary incontinence, R73.03 - Prediabetes, T78.40XA - Allergy, unspecified, initial encounter, Z00.01 - Encounter for general adult medical examination with abnormal findings Vitamin B12 Today E55.9 - Vitamin D deficiency, unspecified, E66.09 - Other obesity due to excess calories, F33.9 - Major depressive disorder, recurrent, unspecified, M15.9 - Polyosteoarthritis, unspecified, R07.89 - Other chest pain, R10.13 - Epigastric pain, R32 - Unspecified urinary incontinence, R73.03 - Prediabetes, T78.40XA - Allergy, unspecified, initial encounter, Z00.01 - Encounter for general adult medical examination with abnormal findings AMB EKG-In Office Today R07.89 - Other chest pain MM tomosynthesis screening BI Today Z12.31 - Encounter for screening mammogram for malignant neoplasm of breast Medications: Refilled cetirizine (All Day Allergy (cetirizine)) 10 mg PO DAILY PRN 90 caps 3RF allergy symptoms 90 days diclofenac sodium 1% (Arthritis Pain (diclofenac)) Apply to knee once a day 2 grams topical QID 100 grams 3RF 30 days furosemide 20 mg PO Q OTHER DAY 45 tabs 0RF Swelling of feet 90 days solifenacin (Vesicare) 10 mg PO DAILY 90 tabs 0RF acetaminophen (Tylenol Extra Strength) 500 mg PO TID PRN 240 tabs 0RF Knee pain 90 days triamcinolone acetonide 0.1% 1 appl topical DAILY 80 grams 0RF 30 days escitalopram oxalate (Lexapro) 10 mg PO DAILY 90 tabs 3RF omeprazole 10 mg PO DAILY 90 caps 0RF Stomach pain 90 days Coding Level of Care Code Est Pt Prev Care >65y(29108) Diagnoses Encounter for general adult medical examination with abnormal findings Z00.01 Chest discomfort R07.89 Pre-diabetes R73.03 Primary osteoarthritis involving multiple joints M15.9 Osteoarthritis type: primary Class 1 obesity due to excess calories with serious comorbidity and body mass index (BMI) of 33.0 to 33.9 in adult E66.09; Z68.33 Obesity classification: adult class 1 (BMI 30 - 34.9) Serious obesity comorbidity presence: with serious comorbidity Body mass index: BMI 33.0-33.9 Recurrent major depressive disorder, in partial remission F33.41 Active/Remission status: in partial remission Epigastric pain R10.13 Vitamin D deficiency E55.9 Dyspepsia R10.13 Mixed stress and urge urinary incontinence N39.46 Urinary Incontinence type: mixed stress and urge incontinence Ventral hernia without obstruction or gangrene K43.9 Obstruction and gangrene presence: without obstruction or gangrene Environmental allergies Z91.09 Headache syndrome G44.89 Memory deficit R41.3 Bilateral swelling of feet M79.89 Difficulty sleeping G47.9
[2023-03-15 12:55] VITALS: BP 100/58; PULSE 83; O2SAT 99; BMI 33.7
== END 2023-03-15 15:19 | disposition home or self-care (01) ==
PROVIDERS: Visit Provider Internal Medicine
DX: Z00.00 Encounter for general adult medical examination without abnormal findings (principal); F33.41 Major depressive disorder, recurrent, in partial remission; R07.89 Other chest pain; R73.03 Prediabetes; M15.9 Polyosteoarthritis, unspecified; E66.09 Other obesity due to excess calories; Z68.33 Body mass index [BMI] 33.0-33.9, adult; R10.13 Epigastric pain; E55.9 Vitamin D deficiency, unspecified; N39.46 Mixed incontinence; K43.9 Ventral hernia without obstruction or gangrene
CPT/HCPCS: 93000; 99397

== ENCOUNTER 2023-03-18 06:35 | Outpatient (REF) | payer OTHER, SELFPAY ==
[2023-03-18 11:28] LABS: MANUAL DIFF FLAG NO
[2023-03-18 11:40] LABS: Basophils Percent Auto 0.5 % (0-2); Eosinophils Absolute Auto 0.2 X10*3/uL (0.0-0.4); Eosinophils Percent Auto 4.2 % (0-4); Hematocrit 43.4 % (37.0-47.0); Hemoglobin 13.7 g/dl (12.0-16.0); Imm Gran Abs Auto 0.02 X10*3/uL (0.00-0.03); Imm Gran Pct Auto 0.4 % (0.0-0.4); Lymphocytes Absolute Auto 2.3 X10*3/uL (1.2-4.9); Lymphocytes Percent Auto 40.4 % (20-40); Mean Corpuscular HGB Conc 31.6 g/dl (31.0-35.0); Mean Corpuscular Hemoglobin 27.1 pg (27.0-33.0); Mean Corpuscular Volume 85.9 fL (80.0-98.0); Monocytes Absolute Auto 0.5 X10*3/uL (0.1-1.2); Monocytes Percent Auto 7.9 % (2-11); Neutrophils Absolute Auto 2.6 x10*3/uL (2.0-8.3); Neutrophils Percent Auto 46.6 % (45-73); Platelet Count 273 X10*3/uL (160-400); Red Blood Count 5.05 X10*6/uL (4.20-5.50); Red Cell Distribution Width 14.5 % (11.0-16.0); White Blood Count 5.7 X10*3/uL (4.8-10.8)
[2023-03-18 12:08] LABS: Estimated Average Glucose 123 mg/dL; Hemoglobin A1c % 5.9 % (<6.0)
[2023-03-18 12:18] LABS: Vitamin B12 533 pg/mL (200-900)
[2023-03-18 12:22] LABS: TSH reflex Free T4 1.65 uIU/mL (0.32-4.0)
[2023-03-18 12:33] LABS: Anion Gap 10 (12-20)
[2023-03-18 12:37] LABS: Alanine Aminotransferase 14 U/L (0-31); Albumin Level 4.2 g/dL (3.5-5.0); Alkaline Phosphatase 91 U/L (39-117); Aspartate Amino Transferase 19 U/L (5-31); Bilirubin Total 0.3 mg/dL (0.0-1.0); Blood Urea Nitrogen 14 mg/dL (9-16); Carbon Dioxide 28 mmol/L (22-29); Chloride 108 mmol/L (96-108); Cholesterol 173 mg/dL (<200); Estimated Glomerular Filt Rate > 60; Glucose Fasting 101 mg/dL (60-99); HDL Cholesterol 57 mg/dL (>40); LDL Cholesterol Calculated 101 mg/dL (<100); Potassium 4.7 mmol/L (3.3-5.1); Sodium 141 mmol/L (135-145); Total Protein 7.6 g/dL (6.5-8.0); Triglycerides 75 mg/dL (<150)
[2023-03-22 16:13] LABS: Vitamin D 25-OH, D2 <4 ng/mL; Vitamin D 25-OH, D3 36 ng/mL; Vitamin D 25-OH, Total 36 ng/mL (30-100)
== END 2023-03-18 06:36 | disposition home or self-care (01) ==
LOC: HO.HMGCLDS 06:35
PROVIDERS: PCP Internal Medicine; Visit Provider Internal Medicine
DX: Z00.01 Encounter for general adult medical examination with abnormal findings (principal); M79.642 Pain in left hand; M17.12 Unilateral primary osteoarthritis, left knee; R41.3 Other amnesia; R73.03 Prediabetes; E66.09 Other obesity due to excess calories; F33.9 Major depressive disorder, recurrent, unspecified; R10.13 Epigastric pain; E55.9 Vitamin D deficiency, unspecified; T78.40XA Allergy, unspecified, initial encounter; R32 Unspecified urinary incontinence; R07.89 Other chest pain
CPT/HCPCS: 36415; 80053; 80061; 82306; 82607; 83036; 84443; 85025

== ENCOUNTER 2023-04-08 08:30 | Outpatient (RCR) | payer OTHER, SELFPAY | END 2023-04-08 09:14 | disposition home or self-care (01) | LOC: HO.OT 08:30 | PROVIDERS: PCP Internal Medicine; Visit Provider Internal Medicine | DX: M79.642 Pain in left hand (principal) | CPT/HCPCS: 97033; 97035; 97110; 97165; 97760 ==

== ENCOUNTER 2023-04-21 12:47 | Outpatient (AMB) | payer OTHER, SELFPAY ==
--- NOTE | 2023-04-21 12:49 | MHC.OFFVIS ---
Intake Vital Signs 04/21/23 13:02 Height 5 ft 4 in Weight 196 lb BMI 33.6 BP 125/56 L Blood Pressure Location Lt brachial Position Sitting Pulse 76 Intake Visit Reasons: abdominal pain Intake Note: Patient follow up for Abdominal pain. Patient cc: abdominal pain with bloating, acid reflex with burning sensation. Also patient is feeling her left leg cold. Denies any other GI issues. Principal Android Developer Required: Yes Principal Android Developer Name: Neris [id number] Accompanied by: Self / Same As Patient Allergies No Known Allergies Allergy (Verified 04/21/23 12:56) Medication List - Last Reconciled 04/21/23 by Kole Andres MD acetaminophen (Tylenol Extra Strength) 500 mg PO TID PRN 90 days cetirizine (All Day Allergy (cetirizine)) 10 mg PO DAILY PRN 90 days cholecalciferol (vitamin D3) 50 mcg PO DAILY 90 days diclofenac sodium 1% (Arthritis Pain (diclofenac)) 2 grams topical QID 30 days escitalopram oxalate (Lexapro) 10 mg PO DAILY furosemide 20 mg PO Q OTHER DAY 90 days omeprazole 10 mg PO DAILY 90 days solifenacin (Vesicare) 10 mg PO DAILY triamcinolone acetonide 0.1% 1 appl topical DAILY 30 days HPI abdominal pain HPI Details GI clinic visit for this 67-year-old female sent by Dr. Keeley Dugan for evaluation of heartburn and a ventral hernia Pt returns after a hiatus of 2 years and 9 months. TODAY'S VISIT: FU of abdominal pain. 03/2023 FOBT was negative Diagnosed with ventral hernia States she eats very little and still unable to loose weight Has difficulty walking due to arthritis - still tries to walk 15 to 20 min. Took advil for arthirtis and started having heartburn Taking baking soda prn Notes decreased appetite and bitter taste in mouth and denies dysphagia Has a BM every morning and denies constipation Noted sudden onset of nausea, vomiting and diarrhea 5-6 weeks ago. Lasted 3 weeks. Notes a gurgling sensation prior to episode of nausea and vomiting. Prescribed Omeprazole and tylenol twice a day. Feeling better and nausea and vomiting has subsided. Has been drinking Gatorade. Still has anorexia and has 1 meal a day. Complains of abdominal bloating. BMs are normal - 1-2 times a day. Notes generalized aches and pains. Denies weight loss Patient denies major cardiac or pulmonary problems, loud snoring or sleep apnea Notes SOB on climbing stairs Denies problems with anesthesia in the past. Denies being on chronic anticoagulation. Patient denies known family history of colon polyps, colon cancer or other GI malignancies. PAST EGD/COLONOSCOPY: Colonoscopy 2-3 yrs ago at [facility] Immigrated from [place] 5 yrs ago and appetite has been intermittently decreased. Weighs 92 Kg and trying to loose weight. PAST GI HISTORY BY REVIEW OF MEDICAL RECORDS: 06/2020 Pt was seen by DR Dugan: Patient says that in May she suddenly started having nausea vomiting and then diarrhea which lasted 2-3 days and then stopped. Then 02 of June she started having same episode again which caused severe weakness that patient passed out in the bathroom, when she woke up she was able to go back to her room crawling on floor. Currently she is eating and do not have the diarrhea she is taking [id number] medication feet which she does not know the name of. Since the fall she is also having pain lower back coccyx area which hurts to sit. There is no fever chills no cough no sore throat no headache no dizziness. Patient have a history of urinary incontinence however currently she is doing okay. she is taking no prescription medications. Due for mammogram and labs I am sending omeprazole 20 mg she is to take that 2 times a day, I have also placed a referral for her to be evaluated by Gastroenterology. Pap smear was January of 2018 Colonoscopy September of 2017 [facility] Medical History Visit for suture removal Surgical History H/O colonoscopy Social History Household Members: Spouse Housing: House Alcohol intake: current Alcohol intake frequency: does not drink Patient Tobacco Use Status: Never used Tobacco e-Cigarette/Vaping Use: Never Used Second Hand Smoke Exposure: No service: No Current occupational status: retired Cognitive needs: No Hearing needs: No Vision needs: No Physical Exam Vital Signs: Last Vital Signs Pulse 76 04/21/23 13:02 BP 125/56 L 04/21/23 13:02 BMI result Body Mass Index 33.6 Const General: healthy appearing and no acute distress Nutritional Appearance: obese Orientation/consciousness: patient oriented x3 Limitations: no limitations and language barrier HEENT Head: Yes normal to inspection Ears: hearing grossly normal bilaterally Eyes Sclerae: sclerae normal Pupils: Equal, round and reactive pupils present Neck Neck: Yes normal visual inspection Chest Chest palpation & inspection: normal inspection of the chest Resp Effort & Inspection: normal respiratory effort Auscultation: clear to auscultation bilaterally Cardio Palpation: normal PMI Rate: regular rate Rhythm: regular rhythm Heart sounds: S1 normal heart sound present, S2 normal heart sound present and no murmurs GI Inspection: Yes visible herniation (Small ventral hernia above umbilicus - non-tender) Palpation (GI): Soft to palpation, nontender and No hepatosplenomegaly present Auscultation: normal bowel sounds Rectal Exam - Female: deferred Skin General skin exam: no rashes or lesions noted Neuro General: patient oriented x3, gait normal and moves all extremities Cranial nerves: Yes Equal, round and reactive pupils present Psych Appearance: grossly normal Mental Status: mental status grossly normal Assessment & Plan Assessment & Plan (1) Ventral hernia: Code(s): K43.9 - Ventral hernia without obstruction or gangrene Qualifiers: Obstruction and gangrene presence: without obstruction or gangrene Qualified Code(s): K43.9 - Ventral hernia without obstruction or gangrene (2) Colon cancer screening: Comment: Pt had a colonoscopy at [facility] in 09/2017. Stool FOBT was checked and was negative in 03/2023 (Pt declined to undergo a colonoscopy) Repeat stool FOBT or FIT test in 1 year. Code(s): Z12.11 - Encounter for screening for malignant neoplasm of colon (3) Epigastric pain: Code(s): R10.13 - Epigastric pain Plan 06/2020 67 year old Irish Beninese female with obesity and DJD referred to GI for evaluation of intermittent episodes of nausea vomiting and diarrhea over the past few weeks. Patient notes improvement in symptoms with some residual dyspepsia and decrease in appetite. She was advised to continue taking omeprazole once daily. Further evaluation with upper endoscopy was advised. Patient would like to ensure her insurance would cover the procedure before she schedules. Patient had a colonoscopy at [facility] in September 2017. Unable to obtain colonoscopy records since procedure was performed > 5 yrs ago. Pt was advised to schedule a follow-up appointment by Dr Dugan for evaluation of a small ventral hernia Patient complains intermittent heartburn and denies any pain at the hernia site. Patient was advised to increase omeprazole to 20 mg daily. She was reassured regarding the hernia and advised to continue to monitor since surgery is not indicated at present. Follow-up in 6 months Medications: Changed From omeprazole 10 mg PO DAILY 90 days 90 caps 0RF Stomach pain To omeprazole 20 mg (2 x 10 mg) PO DAILY 90 days 180 caps 1RF Stomach pain Refilled cholecalciferol (vitamin D3) 50 mcg PO DAILY 90 days 90 caps 3RF E55.9 - Vitamin D deficiency, unspecified diclofenac sodium 1% (Arthritis Pain (diclofenac)) Apply to knee once a day 2 grams topical QID 30 days 100 grams 3RF Coding Level of Care Code Est Pt Level 4 (99244) Diagnoses Ventral hernia without obstruction or gangrene K43.9 Obstruction and gangrene presence: without obstruction or gangrene Colon cancer screening Z12.11 Epigastric pain R10.13 Time Spent (min) 24
[2023-04-21 13:02] VITALS: BP 125/56; PULSE 76; BMI 33.6
== END 2023-04-21 13:48 | disposition home or self-care (01) ==
PROVIDERS: PCP Internal Medicine; Visit Provider Internal Medicine Gastroenterology
DX: K43.9 Ventral hernia without obstruction or gangrene (principal); Z12.11 Encounter for screening for malignant neoplasm of colon; R10.13 Epigastric pain
CPT/HCPCS: 99214

== ENCOUNTER → 2023-04-21 12:47 | Outpatient (BNVA) | payer OTHER, SELFPAY | PROVIDERS: PCP Internal Medicine; Visit Provider Internal Medicine Gastroenterology | DX: Z12.11 Encounter for screening for malignant neoplasm of colon (principal); K43.9 Ventral hernia without obstruction or gangrene; R10.13 Epigastric pain | CPT/HCPCS: 99212 ==

== ENCOUNTER 2023-05-06 08:15 | Outpatient (AMB) | payer OTHER, SELFPAY ==
[2023-05-06 08:18] VITALS: BP 110/58; PULSE 98; O2SAT 100; BMI 34.2
--- NOTE | 2023-05-06 08:18 | MHC.PC.OV ---
Vital Signs 05/06/23 08:18 Height 5 ft 4 in Weight 199 lb BMI 34.2 BP 110/58 L Blood Pressure Location Lt brachial Position Sitting Pulse 98 Pulse Source Pulse Oximeter Pulse Oximetry (%) 100 Oxygen Delivery Method Room Air Intake Visit Reasons: finger pain/Suurg referral? Allergies No Known Allergies Allergy (Verified 05/06/23 08:21) Medication List - Last Reconciled 05/06/23 by Keeley Dugan MD acetaminophen (Tylenol Extra Strength) 500 mg PO TID PRN 90 days cetirizine 10 mg PO DAILY PRN cholecalciferol (vitamin D3) 50 mcg PO DAILY 90 days diclofenac sodium 1% (Arthritis Pain (diclofenac)) 2 grams topical QID 30 days escitalopram oxalate (Lexapro) 10 mg PO DAILY furosemide 20 mg PO Q OTHER DAY 90 days omeprazole 20 mg (2 x 10 mg) PO DAILY 90 days solifenacin (Vesicare) 10 mg PO DAILY triamcinolone acetonide 0.1% 1 appl topical DAILY 30 days Tobacco use date assessed: 05/06/23 Fall risk assessment: No Falls in past year Last assessed Fall Risk: 05/06/23 Dental Screening Dental Screen Date: 05/06/23 Did you have a dental visit in the last 12 months?: No Did you have a dental problem in the last 6 months where you did not have access to dental care?: No Was dental information given to patient?: No HPI finger pain/Suurg referral? 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 Patient was treated with stitches finger has healed but now she is having pain when moving the finger. Patient is requesting a referral to hand specialist. She is also having severe allergies, I have sent script for cetirizine again along with Flonase. [facility] Medical History Visit for suture removal Surgical History H/O colonoscopy Social History Household Members: Spouse Housing: House Alcohol intake: current Alcohol intake frequency: does not drink Patient Tobacco Use Status: Never used Tobacco e-Cigarette/Vaping Use: Never Used Second Hand Smoke Exposure: No service: No Current occupational status: retired Cognitive needs: No Hearing needs: No Vision needs: No Questionnaire PHQ-9 Over the last 2 weeks, how often have you been bothered by any of the following problems? 1. Little interest or pleasure in doing things: not at all 2. Feeling down, depressed, or hopeless: not at all 3. Trouble falling or staying asleep, or sleeping too much: not at all 4. Feeling tired or having little energy: not at all 5. Poor appetite or overeating: not at all 6. Feeling bad about yourself - or that you are a failure or have let yourself or your family down: not at all 7. Trouble concentrating on things, such as reading the newspaper or watching television: not at all 8. Moving or speaking so slowly that other people could have noticed. Or the opposite - being so fidgety or restless that you have been moving around a lot more than usual: not at all 9. Thoughts that you would be better off or of hurting yourself in some way: not at all Total score: 0 Depression Screening Interpretation: Negative Depression Screening Done: Yes 63332 - PHQ-9 Billing: Yes Source: Developed by Drs. Yusuf Bliss, Adele Norris, Mario Vincent and colleagues, with an educational nba from [employer]. Thrive Questionnaire Date Thrive assessed: 05/06/23 I am a: Patient What is your living situation today?: I have a steady place to live Within the past 12 months, did the food you bought not last and you didn't have the money to get more?: Never true Within the past 12 months, did you worry whether your food would run out before you got money to buy more?: Never true Do you have trouble paying for medicines?: No Do you have trouble getting transportation to medical appointments?: No Do you have trouble paying your heating and electricity bill?: No Do you have trouble taking care of your child, family member or friend?: No Do you have trouble with day-to-day activities such as bathing, preparing meals, shopping, managing finances, etc.?: No Are you currently unemployed and looking for a job?: No Are you interested in more education?: No Please select the resources that you would like help with: None Currently or been in a relationship where the following occur: no concerns reported AUDIT C Alcohol Use Questionnaire (AUDIT-C) 1. How often do you have a drink containing alcohol?: Never 3. How often do you have six or more drinks on one occasion?: Never Total Score: 0 Score Reviewed/Action Taken: Yes LANG-7 AMB Questionnaire LANG-7 Date LANG - 7 assessed: 05/06/23 Feeling nervous, anxious, or on edge: 0 = Not at all Not being able to stop or control worryin = Not at all Worrying too much about different things: 0 = Not at all Trouble relaxin = Not at all Being so restless that it is hard to sit still: 0 = Not at all Becoming easily annoyed or irritable: 0 = Not at all Feeling afraid as if something awful might happen: 0 = Not at all Total LANG-7 score (0-4 normal; 5-9 mild; 10-14 moderate; 15-21 severe): 0 Source: Developed by Drs. Yusuf Bliss, Adele Norris, Mario Vincent and colleagues, with an educational nba from [employer]. LANG-7 Assessment Billing LANG-7 Assessment Tool: LANG-7 Assessment 30839 Review of Systems Const Denies chills and Denies fever(s) ENT Denies epistaxis Card Denies chest pain Resp Denies chest congestion, Denies cough and Denies hemoptysis GI Denies diarrhea and Denies nausea Skin/Breast Denies rash Neuro Reports no additional complaints Psych Reports no additional complaints Endo Reports no additional complaints Physical exam (Primary Care) Vital Signs: Last Vital Signs Pulse 98 05/06/23 08:18 BP 110/58 L 05/06/23 08:18 Pulse Ox 100 05/06/23 08:18 Oxygen Delivery Method Room Air 05/06/23 08:18 BMI result Body Mass Index 34.2 Tobacco/Smoking Status: Tobacco use Status Tobacco use date assessed 05/06/23 05/06/23 08:22 Patient Tobacco Use Status Never used Tobacco 05/06/23 08:22 e-Cigarette/Vaping Use Never Used 05/06/23 08:22 PHQ-9: PHQ-9 Score PHQ-9: Total score 0 05/06/23 10:57 Depression Screening Interpretation: Negative Thrive Assessment: Date of Thrive Assessment Date Thrive assessed 05/06/23 05/06/23 08:46 Currently or been in a relationship where the following occur: no concerns reported Const General: cooperative, comfortable and no acute distress Orientation/consciousness: patient oriented x3 HENMT Head: Yes normocephalic Eyes General: appearance normal, both eyes and all related structures Neck Neck: Yes supple Resp Effort & Inspection: normal respiratory effort, no cough and no stridor Cardio Rhythm: regular rhythm Heart sounds: S1 normal heart sound present and S2 normal heart sound present Skin General skin exam: turgor normal Neuro General: patient oriented x3, tone normal and moves all extremities Extrem Hand/finger images: 1. Limited range of motion, pain with movement Right lower extremity: no edema Left lower extremity: no edema Assessment and Plan Assessment & Plan (1) Injury of finger of left hand: Code(s): S69.92XA - Unspecified injury of left wrist, hand and finger(s), initial encounter Qualifiers: Encounter type: sequela Qualified Code(s): S69.92XS - Unspecified injury of left wrist, hand and finger(s), sequela (2) Environmental allergies: Code(s): Z91.09 - Other allergy status, other than to drugs and biological substances (3) Ventral hernia: Code(s): K43.9 - Ventral hernia without obstruction or gangrene Qualifiers: Obstruction and gangrene presence: without obstruction or gangrene Qualified Code(s): K43.9 - Ventral hernia without obstruction or gangrene (4) Osteoarthritis of multiple joints: Code(s): M15.9 - Polyosteoarthritis, unspecified Qualifiers: Osteoarthritis type: primary Qualified Code(s): M15.9 - Polyosteoarthritis, unspecified (5) Pre-diabetes: Code(s): R73.03 - Prediabetes (6) Obesity due to excess calories: Code(s): E66.09 - Other obesity due to excess calories Qualifiers: Obesity classification: adult class 1 (BMI 30 - 34.9) Serious obesity comorbidity presence: with serious comorbidity Body mass index: BMI 33.0-33.9 Qualified Code(s): E66.09 - Other obesity due to excess calories; Z68.33 - Body mass index [BMI] 33.0-33.9, adult (7) Major depression, recurrent: Code(s): F33.9 - Major depressive disorder, recurrent, unspecified Qualifiers: Active/Remission status: in partial remission Qualified Code(s): F33.41 - Major depressive disorder, recurrent, in partial remission (8) Difficulty sleeping: Code(s): G47.9 - Sleep disorder, unspecified (9) DJD (degenerative joint disease), thoracic: Code(s): M47.814 - Spondylosis without myelopathy or radiculopathy, thoracic region Qualifiers: Spinal osteoarthritis complication: without myelopathy or radiculopathy Qualified Code(s): M47.814 - Spondylosis without myelopathy or radiculopathy, thoracic region (10) Dyspepsia: Code(s): R10.13 - Epigastric pain (11) Incontinence of urine: Code(s): R32 - Unspecified urinary incontinence Qualifiers: Urinary Incontinence type: mixed stress and urge incontinence Qualified Code(s): N39.46 - Mixed incontinence Plan Patient is 67 year old female with a history of multiple joint osteoarthritis, ventral hernia, prediabetes, obesity, stress incontinence, major depression, difficulty sleeping, chronic bloating Patient had injury to her left 4th finger when she accidentally press the own button while cleaning the process 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 Patient was treated with stitches finger has healed but now she is having pain when moving the finger. Patient is requesting a referral to hand specialist. She is also having severe allergies, I have sent script for cetirizine again along with Flonase. Orders: Referrals Hand Surgery Referral S69.92XA - Unspecified injury of left wrist, hand and finger(s), initial encounter Medications: New fluticasone propionate 50 mcg/actuation (Flonase Allergy Relief) administer into each nostril 1 spray intranasal DAILY 16 grams 0RF Nasal congestion Refilled cetirizine 10 mg PO DAILY PRN 90 tabs 3RF allergy symptoms acetaminophen (Tylenol Extra Strength) 500 mg PO TID PRN 240 tabs 0RF pain 90 days Coding Level of Care Code Est Pt Level 4 (32861) Diagnoses Injury of finger of left hand, sequela S69.92XS Encounter type: sequela Environmental allergies Z91.09 Ventral hernia without obstruction or gangrene K43.9 Obstruction and gangrene presence: without obstruction or gangrene Primary osteoarthritis involving multiple joints M15.9 Osteoarthritis type: primary Pre-diabetes R73.03 Class 1 obesity due to excess calories with serious comorbidity and body mass index (BMI) of 33.0 to 33.9 in adult E66.09; Z68.33 Obesity classification: adult class 1 (BMI 30 - 34.9) Serious obesity comorbidity presence: with serious comorbidity Body mass index: BMI 33.0-33.9 Recurrent major depressive disorder, in partial remission F33.41 Active/Remission status: in partial remission Difficulty sleeping G47.9 Spondylosis of thoracic region without myelopathy or radiculopathy M47.814 Spinal osteoarthritis complication: without myelopathy or radiculopathy Dyspepsia R10.13 Mixed stress and urge urinary incontinence N39.46 Urinary Incontinence type: mixed stress and urge incontinence Additional Codes LANG-7 Assessment Billing - LANG-7 Assessment Tool: LANG-7 Assessment 41730 ([id number])
== END 2023-05-06 08:29 | disposition home or self-care (01) ==
PROVIDERS: PCP Internal Medicine; Visit Provider Internal Medicine
DX: R73.03 Prediabetes (principal); F33.41 Major depressive disorder, recurrent, in partial remission; S69.92XS Unspecified injury of left wrist, hand and finger(s), sequela; Z91.09 Other allergy status, other than to drugs and biological substances; K43.9 Ventral hernia without obstruction or gangrene; M15.9 Polyosteoarthritis, unspecified; E66.09 Other obesity due to excess calories; Z68.33 Body mass index [BMI] 33.0-33.9, adult; G47.9 Sleep disorder, unspecified; M47.814 Spondylosis without myelopathy or radiculopathy, thoracic region; R10.13 Epigastric pain; N39.46 Mixed incontinence
CPT/HCPCS: 99214

== ENCOUNTER 2023-06-15 08:19 | Outpatient (AMB) | payer OTHER, SELFPAY ==
--- NOTE | 2023-06-15 08:25 | A.OFFVIS_ITS ---
Intake Vital Signs 06/15/23 08:26 Height 5 ft 4 in Weight 199 lb BMI 34.2 Intake Visit Reasons: OV- LT 4th digit LAC -Cont Pain, DOI 10/08/20 Intake Note: Julia keane 68 year old female presents today for a follow up of left 4th digit laceration, DOI 10/08/20. Patient reports that she continues to have pain at her MCP and around her wrist. She was referred to PT for 2 weeks with no relief. States her pain is worse at night. Denies any recent injury. Toy Packer Required: Yes Toy Packer Name: Radha ID#[id number] Allergies No Known Allergies Allergy (Verified 06/15/23 08:31) Medication List - Last Reconciled 06/15/23 by Deborah New PA-C acetaminophen (Tylenol Extra Strength) 500 mg PO TID PRN 90 days cetirizine 10 mg PO DAILY PRN cholecalciferol (vitamin D3) 50 mcg PO DAILY 90 days diclofenac sodium 1% (Arthritis Pain (diclofenac)) 2 grams topical QID 30 days escitalopram oxalate (Lexapro) 10 mg PO DAILY fluticasone propionate 50 mcg/actuation (Flonase Allergy Relief) 1 spray intranasal DAILY furosemide 20 mg PO Q OTHER DAY 90 days omeprazole 20 mg (2 x 10 mg) PO DAILY 90 days solifenacin (Vesicare) 10 mg PO DAILY triamcinolone acetonide 0.1% 1 appl topical DAILY 30 days HPI OV- LT 4th digit LAC -Cont Pain, DOI 10/08/20 HPI Details 68-year-old female who returns 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 She also continues to experience burning sensation in the left ring fingr from a laceration in 2020. She currently states she has pain at the base of the thumb which extends into the wrist which has been worsened for the last 7 months. Her pain is aggravated at night. She denies any recent injury. She did attend OT when she had her laceration without relief. [facility] Medical History Visit for suture removal Surgical History H/O colonoscopy Social History Household Members: Spouse Housing: House Alcohol intake: current Alcohol intake frequency: does not drink Patient Tobacco Use Status: Never used Tobacco e-Cigarette/Vaping Use: Never Used Second Hand Smoke Exposure: No service: No Current occupational status: retired Cognitive needs: No Hearing needs: No Vision needs: No Review of Systems Const All systems reviewed & are unremarkable except as noted in HPI and below Physical Exam Vital Signs: BMI result Body Mass Index 34.2 Extrem Other: Left hand: Normal to inspection. She has full function with her hand. She can close and open her fist and has good sensation throughout. She describes a burning sensation throughout the radial and ulnar side of her finger. Cap refill and pulses are present. Positive Earnestine?s on the left. Assessment & Plan Assessment & Plan (1) Laceration of left little finger: Code(s): S61.217A - Laceration without foreign body of left little finger without damage to nail, initial encounter Qualifiers: Encounter type: subsequent encounter Damage to nail status: without damage Foreign body presence: without foreign body Qualified Code(s): S61.217D - Laceration without foreign body of left little finger without damage to nail, subsequent encounter (2) De Quervain's tenosynovitis, left: Code(s): M65.4 - Radial styloid tenosynovitis [de Quervain] Plan An EMG/nerve conduction study has been ordered to further evaluate the numbness on her left hand. She was also given a thumb spica brace in the office today to help with her tendinitis in her thumb and wrist. We also discussed a steroid injection which she deferred at this time. She will reach out to us once the EMG study is complete. Orders: Orders NE electromyogram (EMG) Today R20.0 - Anesthesia of skin, R20.2 - Paresthesia of skin NE nerve conduction velocity Today R20.0 - Anesthesia of skin, R20.2 - Paresthesia of skin Referrals General Surgery Referral D17.22 - Benign lipomatous neoplasm of skin and subcutaneous tissue of left arm Patient Instructions: Scribed for Deborah New PA-C, by Kadeem Mondragon medical sales associate, on 06/15/2023 at 8:30 AM SHANITA. I, Ta-Niki Meuse, PA-C, have personally reviewed and agree with the information entered by the scribe. Coding Level of Care Code Est Pt Level 3 (40753) Diagnoses Laceration of left little finger without foreign body without damage to nail, subsequent encounter S61.217D Encounter type: subsequent encounter Damage to nail status: without damage Foreign body presence: without foreign body De Quervain's tenosynovitis, left M65.4
[2023-06-15 08:26] VITALS: BMI 34.2
== END 2023-06-15 09:04 | disposition home or self-care (01) ==
PROVIDERS: PCP Internal Medicine; Visit Provider Physician Assistant
DX: S61.217D Laceration without foreign body of left little finger without damage to nail, subsequent encounter (principal); M65.4 Radial styloid tenosynovitis [de Quervain]
CPT/HCPCS: 99213

== ENCOUNTER → 2023-06-15 08:19 | Outpatient (BNVA) | payer OTHER, SELFPAY | PROVIDERS: PCP Internal Medicine; Visit Provider Physician Assistant | DX: S61.217D Laceration without foreign body of left little finger without damage to nail, subsequent encounter (principal); M65.4 Radial styloid tenosynovitis [de Quervain] | CPT/HCPCS: 99212 ==

== ENCOUNTER 2023-06-23 11:11 | Outpatient (AMB) | payer OTHER, SELFPAY ==
--- NOTE | 2023-06-23 11:13 | A.OFFVIS_ITS ---
Intake Vital Signs 06/23/23 11:29 Height 5 ft 4 in Weight 201 lb 6 oz BMI 34.6 BP 159/73 H Blood Pressure Location Lt brachial Position Sitting Pulse 73 Intake Visit Reasons: lt arm lipoma Intake Note: Patient is seen in office for evaluation and treatment of a lipoma of the left arm. Pt c/o: had a lump in the left shoulder after receiving a shot, then experience increase pain in the left arm, swelling, had a cut in the finger feels burning and uncomfortable sensation, is all done with physical therapy, also has a lump in the upper left arm, increase and decrease in size, burning pain was unable to sleep last night due to pain Digital Marketing Specialist Required: Yes Digital Marketing Specialist Language: Luxembourgish Digital Marketing Specialist Name: Neris Cadena ([id number]) Information Interpreted: non-clinical & clinical Accompanied by: Self / Same As Patient Allergies No Known Allergies Allergy (Verified 06/23/23 11:25) Medication List - Last Reconciled 06/23/23 by Lc Patterson MD acetaminophen (Tylenol Extra Strength) 500 mg PO TID PRN 90 days cetirizine 10 mg PO DAILY PRN cholecalciferol (vitamin D3) 50 mcg PO DAILY 90 days diclofenac sodium 1% (Arthritis Pain (diclofenac)) 2 grams topical QID 30 days escitalopram oxalate (Lexapro) 10 mg PO DAILY fluticasone propionate 50 mcg/actuation (Flonase Allergy Relief) 1 spray intranasal DAILY furosemide 20 mg PO Q OTHER DAY 90 days omeprazole 20 mg (2 x 10 mg) PO DAILY 90 days solifenacin (Vesicare) 10 mg PO DAILY triamcinolone acetonide 0.1% 1 appl topical DAILY 30 days HPI HPI Comments History of Present Illness Details 68-year-old female patient presenting fo r evaluation of a lipoma located on the left arm noted on recent orthopedic examination. Patient presents with complaints of severe hand pain on the left side following previous laceration. This is been going on for many years and she is mostly complaining of hand pain. Incidentally noted was a soft tissue mass in the left upper arm felt to be a lipoma. She reports some mild discomfort from this but is not as concerned about the lipoma verses the hand pain. She was previously seen by Orthopedic surgery. [facility] Medical History Visit for suture removal Surgical History H/O colonoscopy Social History Household Members: Spouse Housing: House Alcohol intake: current Alcohol intake frequency: does not drink Patient Tobacco Use Status: Never used Tobacco e-Cigarette/Vaping Use: Never Used Second Hand Smoke Exposure: No service: No Current occupational status: retired Cognitive needs: No Hearing needs: No Vision needs: No Review of Systems Const All systems reviewed & are unremarkable except as noted in HPI and below Denies chills, Denies fever(s), Denies headache(s), Denies poor appetite and Denies weakness ENT Denies headache(s) Card Denies chest pain, Denies irregular heart rhythm, Denies palpitations and Denies dyspnea Resp Denies cough, Denies excessive phlegm production and Denies dyspnea GI Denies abdominal pain, Denies bloating, Denies change in bowel habits, Denies constipation, Denies heartburn, Denies diarrhea, Denies nausea and Denies vomiting Denies urinary frequency Musc Reports as per HPI, Denies back pain, Reports muscle weakness and Denies numbness Skin/Breast Denies changing lesions and Denies unusual bruising Neuro Denies headache(s), Denies numbness, Denies paresthesias and Denies weakness Psych Denies anxiety and Denies depression Endo Denies palpitations Shane/Lymph Denies lymphadenopathy Physical Exam Vital Signs: Last Vital Signs Pulse 73 06/23/23 11:29 BP 159/73 H 06/23/23 11:29 BMI result Body Mass Index 34.6 Const General: cooperative and no acute distress Nutritional Appearance: well nourished Orientation/consciousness: patient oriented x3 Limitations: no limitations HEENT Head: Yes normocephalic and Yes atraumatic Ears: hearing grossly normal bilaterally Resp Effort & Inspection: normal respiratory effort, no audible wheezes, no cough and no respiratory distress Cardio Jugular venous distension: no JVD GI Inspection: Yes normal to inspection Skin Other: Warm, dry, no rash Neuro General: patient oriented x3 Extrem Other: Soft tissue mass located in the upper arm measuring approximately 2 cm in diameter. There is minimal tenderness to palpation. The mass is mobile within the subcutaneous tissue and is most consistent with a lipoma. No overlying skin changes are identified. General: Yes no clubbing, cyanosis or edema Assessment & Plan Assessment & Plan (1) Lipoma of arm: Code(s): D17.20 - Benign lipomatous neoplasm of skin and subcutaneous tissue of unspecified limb Qualifiers: Laterality: left Qualified Code(s): D17.22 - Benign lipomatous neoplasm of skin and subcutaneous tissue of left arm (2) Hand pain, left: Code(s): M79.642 - Pain in left hand Plan Patient presented for evaluation of a lipoma of the left upper arm which is causing mild symptoms. She is mainly concerned about her left hand pain and is not interested in any surgery for the lipoma. I discussed the return to hand surgery evaluation for the hand pain verses evaluation by a pain clinic. She is willing to be evaluated by the pain management clinic and a referral has been sent. She should follow up in our office as needed. Orders: Referrals Pain Management Referral M79.642 - Pain in left hand Coding Level of Care Code New Pt Level 4 (59156) Diagnoses Lipoma of left upper extremity D17.22 Laterality: left Hand pain, left M79.642
[2023-06-23 11:29] VITALS: BP 159/73; PULSE 73; BMI 34.6
== END 2023-06-23 11:59 | disposition home or self-care (01) ==
PROVIDERS: PCP Internal Medicine; Visit Provider Surgery
DX: D17.22 Benign lipomatous neoplasm of skin and subcutaneous tissue of left arm (principal); M79.642 Pain in left hand
CPT/HCPCS: 99203

== ENCOUNTER → 2023-06-23 11:11 | Outpatient (BNVA) | payer OTHER, SELFPAY | PROVIDERS: PCP Internal Medicine; Visit Provider Surgery | DX: D17.22 Benign lipomatous neoplasm of skin and subcutaneous tissue of left arm (principal); M79.642 Pain in left hand | CPT/HCPCS: 99202 ==

== ENCOUNTER 2023-06-29 08:31 | Outpatient (AMB) | payer OTHER, SELFPAY ==
--- NOTE | 2023-06-29 08:38 | A.OFFVIS_ITS ---
Intake Vital Signs 06/29/23 08:45 Height 5 ft 4 in Weight 200 lb BMI 34.3 BP 130/70 Blood Pressure Location Lt brachial Position Sitting Respiration 14 Pulse 74 Pulse Source Pulse Oximeter Pulse Oximetry (%) 100 Oxygen Delivery Method Room Air Intake Visit Reasons: Pain in left hand/LVM Intake Note: Patient comes in for initial visit was referred by General Surgery. Allergies No Known Allergies Allergy (Verified 06/29/23 08:44) HPI HPI Comments History of Present Illness Details Ms. Mccarty is very pleasant 68 years old female who presents in my office with complains on pain in the left hand and lower forearm. She reports that pain is chronic. She reports that the pain started when she received laceration of multiple fingers with most severe cheondoism of 4. And 5. Fingers in 2020. She reports that she since then she tried physical therapy to treat her pain. She went to orthopedic surgery Dr. Tea Richard, she received a brace to wear to help her pain and topical medications. None of those efforts helps her pain. Now she reports that her pain is intractable, she has severe burning sensation especially at night and she has swelling and discoloration of the hand and lower forearm. She reports weakness in the left hand compared to the right hand although she is right-handed person. She also went for a general surgery consult for lipoma of the left upper arm but this is in my opinion not very related to her painful condition in the hand. I think that she is suffering from Complex regional pain syndrome of the left upper extremity. [facility] Medical History Visit for suture removal Surgical History H/O colonoscopy Social History Household Members: Spouse Housing: House Alcohol intake: current Alcohol intake frequency: does not drink Patient Tobacco Use Status: Never used Tobacco e-Cigarette/Vaping Use: Never Used Second Hand Smoke Exposure: No service: No Current occupational status: retired Cognitive needs: No Hearing needs: No Vision needs: No Review of Systems Const All systems reviewed & are unremarkable except as noted in HPI and below Denies chills, Denies fever(s), Denies headache(s), Denies poor appetite and Denies weakness ENT Reports Normal hearing present and Denies headache(s) Card Denies chest pain, Denies irregular heart rhythm, Denies palpitations and Denies dyspnea Resp Denies cough, Denies excessive phlegm production and Denies dyspnea GI Denies abdominal pain, Denies bloating, Denies change in bowel habits, Denies constipation, Denies heartburn, Denies diarrhea, Denies nausea and Denies vomiting Denies urinary frequency Musc Reports as per HPI, Denies back pain, Reports muscle weakness and Denies numbness Skin/Breast Denies changing lesions and Denies unusual bruising Neuro Reports Normal hearing present, Denies Abnormal speech present, Denies confusion, Denies headache(s), Denies numbness, Denies Sensory deficit (Neuro), Denies paresthesias and Denies weakness Psych Denies anxiety, Denies confusion and Denies depression Endo Denies palpitations Shane/Lymph Denies lymphadenopathy Physical Exam Vital Signs: Last Vital Signs Pulse 74 06/29/23 08:45 Resp 14 06/29/23 08:45 BP 130/70 06/29/23 08:45 Pulse Ox 100 06/29/23 08:45 Oxygen Delivery Method Room Air 06/29/23 08:45 BMI result Body Mass Index 34.3 Const General: no acute distress; No confusion Orientation/consciousness: patient oriented x3 and No confusion Eyes General: appearance normal, both eyes and all related structures Pupils: Equal, round and reactive pupils present EOM: EOMs intact bilaterally Neck Neck: Yes full ROM Chest Chest palpation & inspection: normal inspection of the chest Resp Effort & Inspection: normal respiratory effort, able to speak in complete sentences, normal respiratory pattern, no audible wheezes and no cough Cardio Jugular venous distension: no JVD GI Inspection: Yes normal to inspection Neuro General: patient oriented x3, gait normal and No confusion Cranial nerves: Yes CN's II-XII intact bilaterally, Yes Equal, round and reactive pupils present, Yes Normal hearing present and Yes Ability to bilaterally elevate shoulders present Speech: No Abnormal speech present Gait exam (Neuro): Normal gait present Motor exam (neuro): 5/5 motor strength present throughout Sensory Exam: No Sensory deficit (Neuro) Extrem Other: Compared to the right hand left hand of the patient's slightly edematous and slightly red in color. Very tender on palpation in the projection of the left wrist and left 5th 4th and 3rd finger. Obvious allodynia on palpation. Psych Speech and movement: Normal speech and movement present Affect: normal affect Attitude: cooperative Thought process: Normal thought process present Thought content: Normal thought content present Insight: Good insight present (Psych) Judgement: Good judgement present (Psych) Assessment & Plan Assessment & Plan (1) Complex regional pain syndrome i of left upper limb: Code(s): G90.512 - Complex regional pain syndrome I of left upper limb Plan I would like to attempt stellate ganglion block on the left in the order to help this patient's pain. I will send her for repeat of the physical therapy after stellate ganglion if pain will be improved after the injection. I would like to start her on clonidine to help her sleep at night and provide s ome sympathetic blockade to help her pain. However I need input from her primary care physician Dr. Rohit Dugan if her comorbidities would allow me to start her on clonidine. Next time I see this patient for stellate ganglion block. Will schedule follow- up appointment after the stellate ganglion block. Coding Level of Care Code New Pt Level 3 (70852) Diagnoses Complex regional pain syndrome i of left upper limb G90.512
[2023-06-29 08:45] VITALS: BP 130/70; PULSE 74; RESP 14; O2SAT 100; BMI 34.3
== END 2023-06-29 09:23 | disposition home or self-care (01) ==
PROVIDERS: PCP Internal Medicine; Referring Provider Surgery; Visit Provider Anesthesiology
DX: G90.512 Complex regional pain syndrome I of left upper limb (principal)
CPT/HCPCS: 99203

== ENCOUNTER → 2023-06-29 08:31 | Outpatient (BNVA) | payer OTHER, SELFPAY | PROVIDERS: PCP Internal Medicine; Referring Provider Surgery; Visit Provider Anesthesiology | DX: G90.512 Complex regional pain syndrome I of left upper limb (principal) | CPT/HCPCS: 99202 ==

== ENCOUNTER 2023-07-07 08:53 | Outpatient (AMB) | payer OTHER, SELFPAY ==
--- NOTE | 2023-07-07 08:53 | A.OFFPC_ITS ---
Vital Signs 07/07/23 08:54 Height 5 ft 4 in Intake Visit Reasons: Dr. manning recommendations~ Allergies No Known Allergies Allergy (Verified 07/07/23 08:53) Medication List - Last Reconciled 07/07/23 by Keeley Dugan MD acetaminophen (Tylenol Extra Strength) 500 mg PO TID PRN 90 days cetirizine 10 mg PO DAILY PRN cholecalciferol (vitamin D3) 50 mcg PO DAILY 90 days diclofenac sodium 1% (Arthritis Pain (diclofenac)) 2 grams topical QID 30 days escitalopram oxalate (Lexapro) 10 mg PO DAILY fluticasone propionate 50 mcg/actuation (Flonase Allergy Relief) 1 spray intranasal DAILY furosemide 20 mg PO Q OTHER DAY 90 days omeprazole 20 mg (2 x 10 mg) PO DAILY 90 days solifenacin (Vesicare) 10 mg PO DAILY triamcinolone acetonide 0.1% 1 appl topical DAILY 30 days Tobacco use date assessed: 07/07/23 Fall risk assessment: No Falls in past year Last assessed Fall Risk: 07/07/23 Dental Screening Dental Screen Date: 07/07/23 Did you have a dental visit in the last 12 months?: No Did you have a dental problem in the last 6 months where you did not have access to dental care?: No Was dental information given to patient?: No HPI Dr. manning recommendations~ HPI Details Patient is 68-year-old female who speaks very little Maldivian Suffers from pain left upper extremity, has seen orthopedic as well as tried pain medication, which has not helped her She recently saw paint roller covermaker Dr. Manning, who has recommended nerve block and also to start her on clonidine His recommendations were explained to patient, she agrees, however she has a concern that since she does not speak Maldivian it will be difficult for her to communicate. I have sent message to pain management front office to arrange for pre sales systems engineer for the patient or if possible to book appointment with Dr. Stewart, as he speaks patient's language. Reviewing her previous blood pressure readings I feel that it will be okay to start her on clonidine as Dr Manning has recommended. [facility] Medical History Visit for suture removal Surgical History H/O colonoscopy Social History Household Members: Spouse Housing: House Alcohol intake: current Alcohol intake frequency: does not drink Patient Tobacco Use Status: Never used Tobacco e-Cigarette/Vaping Use: Never Used Second Hand Smoke Exposure: No service: No Current occupational status: retired Cognitive needs: No Hearing needs: No Vision needs: No Questionnaire Thrive Questionnaire Date Thrive assessed: 05/06/23 AUDIT C Alcohol Use Questionnaire (AUDIT-C) 1. How often do you have a drink containing alcohol?: Never 3. How often do you have six or more drinks on one occasion?: Never Total Score: 0 Score Reviewed/Action Taken: Yes LANG-7 AMB Questionnaire LANG-7 Date LANG - 7 assessed: 05/06/23 Source: Developed by Drs. Yusfu Bliss, Adele Norris, Mario Vincent and colleagues, with an educational nba from [employer]. Review of Systems Const Denies chills and Denies fever(s) ENT Denies epistaxis and Denies nasal discharge Card Denies chest pain Resp Denies chest congestion, Denies cough and Denies hemoptysis GI Denies diarrhea and Denies nausea Skin/Breast Denies rash Neuro Reports no additional complaints Psych Reports no additional complaints Endo Reports no additional complaints Physical exam (Primary Care) Tobacco/Smoking Status: Tobacco use Status Tobacco use date assessed 07/07/23 07/07/23 08:53 Patient Tobacco Use Status Never used Tobacco 07/07/23 08:53 e-Cigarette/Vaping Use Never Used 07/07/23 08:53 Thrive Assessment: Date of Thrive Assessment Date Thrive assessed 05/06/23 07/07/23 08:53 Telehealth Telehealth Location of provider rendering services: practice address Location of patient: address on file Patient Identification confirmed using: Name, : Yes Telehealth method: voice only Patient verbally consented to treatment: Yes Patient verbally consented to billing insurance company: Yes Patient informed of any privacy concerns related to visit: Yes Minutes spent on Phone/Video with Pt.: 18 Assessment and Plan Assessment & Plan (1) Complex regional pain syndrome i of left upper limb: Code(s): G90.512 - Complex regional pain syndrome I of left upper limb Qualifiers: Complex regional pain syndrome type: type II (causalgia) Qualified Code(s): G56.42 - Causalgia of left upper limb Plan Patient is 68-year-old female who speaks very little Maldivian Suffers from pain left upper extremity, has seen orthopedic as well as tried pain medication, which has not helped her She recently saw paint roller covermaker Dr. Manning, who has recommended nerve block and also to start her on clonidine His recommendations were explained to patient, she agrees, however she has a concern that since she does not speak Maldivian it will be difficult for her to communicate. I have sent message to pain management front office to arrange for pre sales systems engineer for the patient or if possible to book appointment with Dr. Stewart, as he speaks patient's language. Reviewing her previous blood pressure readings I feel that it will be okay to start her on clonidine as Dr Manning has recommended. Medications: New cholecalciferol (vitamin D3) 25 mcg PO DAILY 90 tabs 1RF 90 days Refilled diclofenac sodium 1% (Arthritis Pain (diclofenac)) Apply to knee once a day 2 grams topical QID 100 grams 3RF 30 days Coding Level of Care Code Tele Est Pt Level 4 (37036) Diagnoses Complex regional pain syndrome type 2 of left upper extremity G56.42 Complex regional pain syndrome type: type II (causalgia) Time Spent (min) 30 Comment 7 minute pre visit reviewing notes, 14 with patient, 9 charting/ coordination of care
== END 2023-07-07 10:44 | disposition home or self-care (01) ==
LOC: HO.HMGC 08:54
PROVIDERS: PCP Internal Medicine; Visit Provider Internal Medicine
DX: G56.42 Causalgia of left upper limb (principal)
CPT/HCPCS: 99442

== ENCOUNTER 2023-07-29 08:41 | Outpatient (AMB) | payer OTHER, SELFPAY ==
--- NOTE | 2023-07-29 08:44 | AM.OFFWIN_ITS ---
Intake Vital Signs 3 07/29/23 08:45 Height 5 ft 4 in Weight 201 lb BMI 34.5 BP 130/100 H Blood Pressure Location Lt brachial Position Sitting Pulse 77 Pulse Source Pulse Oximeter Temp 97.7 F Temp Source Temporal Artery Scan Pulse Oximetry (%) 98 Intake Visit Reasons: EP Pain LT hand/arm Intake Note: pt is here today for pain lft hand and arm started 2 months ago Patient Tobacco Use Status: Never used Tobacco Allergies No Known Allergies Allergy (Verified 07/29/23 08:47) Do you need a note to return to daycare/school/sports/work: No HPI EP Pain LT hand/arm 2 HPI0 Details Patient is 68-year-old female came in today to be evaluated for pain left wrist and thumb Which has been happening for a while Patient is having difficulty extending her thumb because of pain She said she has tried wearing wrist splint which did not help her much She is also taking Tylenol which helps just for little while I have ordered x-ray of her wrist and thumb Patient will start occupational therapy And referral is placed to see a hand specialist patient is requesting a cortisone injection. [facility] Medical History Visit for suture removal Surgical History H/O colonoscopy Social History Household Members: Spouse Housing: House Alcohol intake: current Alcohol intake frequency: does not drink Patient Tobacco Use Status: Never used Tobacco e-Cigarette/Vaping Use: Never Used Second Hand Smoke Exposure: No service: No Current occupational status: retired Cognitive needs: No Hearing needs: No Vision needs: No Review of Systems Const All systems reviewed & are unremarkable except as noted in HPI and below Physical Exam Vital Signs: Last Vital Signs Temp 97.7 F 07/29/23 08:45 Pulse 77 07/29/23 08:45 BP 130/100 H 07/29/23 08:45 Pulse Ox 98 07/29/23 08:45 BMI result Body Mass Index 34.5 Const General: no acute distress Orientation/consciousness: patient oriented x3 Eyes General: appearance normal, both eyes and all related structures Resp Effort & Inspection: normal respiratory effort and able to speak in complete sentences Auscultation: clear to auscultation bilaterally Cardio Other: S1 S2 Neuro General: patient oriented x3 Extrem Hand/finger images: 2 1. Pain with thumb extension 2. Pain with wrist movement Psych Mental Status: mental status grossly normal Assessment & Plan Assessment & Plan (1) Pain in left wrist: Code(s): M25.532 - Pain in left wrist (2) Pain of left thumb: Code(s): M79.645 - Pain in left finger(s) Plan Patient is 68-year-old female came in today to be evaluated for pain left wrist and thumb Which has been happening for a while Patient is having difficulty extending her thumb because of pain She said she has tried wearing wrist splint which did not help her much She is also taking Tylenol which helps just for little while I have ordered x-ray of her wrist and thumb Patient will start occupational therapy And referral is placed to see a hand specialist patient is requesting a cortisone injection. Orders: Orders 2 OT Evaluation and Treatment Today M25.532 - Pain in left wrist, M79.645 - Pain in left finger(s) XR hand LT 2V Today M25.532 - Pain in left wrist, M79.645 - Pain in left finger(s) XR wrist LT 2V Today M25.532 - Pain in left wrist, M79.645 - Pain in left finger(s) Referrals 2 Hand Surgery Referral M25.532 - Pain in left wrist, M79.645 - Pain in left finger(s) Coding Level of Care Code Est Pt Level 3 (92621) Diagnoses Pain in left wrist M25.532 Pain of left thumb M79.645
[2023-07-29 08:45] VITALS: BP 130/100; PULSE 77; TEMP 36.5; O2SAT 98; BMI 34.5
== END 2023-07-29 09:27 | disposition home or self-care (01) ==
PROVIDERS: PCP Internal Medicine; Visit Provider Internal Medicine
DX: M25.532 Pain in left wrist (principal); M79.645 Pain in left finger(s)
CPT/HCPCS: 99213

== ENCOUNTER 2023-07-29 09:07 | Outpatient (REF) | payer OTHER, SELFPAY ==
--- NOTE | ~2023-07-29 | XR_ITS ---
EXAMINATION: XR HAND/WRIST, LEFT CLINICAL INFORMATION: Pain COMPARISON: Left hand radiograph from 10/08/2020 TECHNIQUE: PA, lateral, and oblique views of the left hand and wrist. FINDINGS: No acute visible fracture or dislocation. Mild multi joint arthritic changes. Interval development of periarticular osteophyte along the ulnar aspects of the fourth distal interphalangeal joint. Slight positive ulnar variance. Joint space alignment are maintained. Soft tissues are unremarkable. XR/XR hand wrist LT IMPRESSION: 1. No acute visible fracture or dislocation. 2. Mild multi joint arthritic changes. 3. Interval development of periarticular osteophyte along the ulnar aspect of the fourth distal interphalangeal joint.
== END 2023-07-29 09:08 | disposition home or self-care (01) ==
LOC: HO.HMGCX 09:07
PROVIDERS: PCP Internal Medicine; Visit Provider Internal Medicine
DX: M25.532 Pain in left wrist (principal); M79.645 Pain in left finger(s)
CPT/HCPCS: 73110; 73130

== ENCOUNTER 2023-08-18 08:27 | Outpatient (AMB) | payer OTHER, SELFPAY ==
--- NOTE | 2023-08-18 08:45 | MHC.OFFVIS ---
Vital Signs 08/18/23 08:59 Height 5 ft 4 in Weight 201 lb BMI 34.5 Intake Visit Reasons: O/V De Quervain's tenosynovitis, left Intake Note: Julia a 68 year old female who presents today for a follow up of left dequervain tenosynovitis. Patient reports that she continues to have pain in her wrist at the dorsal aspect. States no relief with use of wrist brace or topical creams. She has not been able to attend PT and has not been contacted for her EMG study. Tractor Trailer Operator Name: Kevin ID# [id number] Allergies No Known Allergies Allergy (Verified 08/18/23 08:56) HPI HPI O/V De Quervain's tenosynovitis, left: Details: 68-year-old female who returns today for a follow-up for left wrist pain. A certified [employer] project builder was present during the visit. The patient reports pain, swelling, and discoloration. Her pain started about two months ago. She continues to have pain in the dorsal aspect of her wrist. She has no relief with the use of a wrist brace or topical creams. She has not been able to attend physical therapy and has not been contacted for her EMG study. She has never had cortisone injections in the past. COUNTS INCLUDE 234 BEDS AT THE [facility] Medical History Visit for suture removal Surgical History H/O colonoscopy Social History Household Members: Spouse Housing: House Alcohol intake: current Alcohol intake frequency: does not drink Patient Tobacco Use Status: Never used Tobacco e-Cigarette/Vaping Use: Never Used Second Hand Smoke Exposure: No service: No Current occupational status: retired Cognitive needs: No Hearing needs: No Vision needs: No Review of Systems Const All systems reviewed & are unremarkable except as noted in HPI and below Physical Exam Vital Signs: BMI result Body Mass Index 34.5 Extrem Other: Left hand: Normal to inspection. She has full function with her hand. She can close and open her fist and has good sensation throughout. She describes a burning sensation throughout the radial and ulnar side of her finger. Cap refill and pulses are present. Positive Earnestine?s on the left. Office Procedures Joint Injection/Drain Joint Injection/Drain Details: First dorsal compartment left thumb Prep: site was prepped using aseptic technique, ethochloride spray was applied and injection warnings given Injected: 40 mg of, with 1 mL of, 1% plain lidocaine and decadron Procedure: The patient tolerated the procedure well and there was some relief with the local anesthesia Coding Details: Tendon sheath Procedure code (CPT) selection complete Assessment & Plan Assessment & Plan (1) De Quervain's tenosynovitis, left: Code(s): M65.4 - Radial styloid tenosynovitis [de Quervain] Category: Medical Plan We discussed options today, which include steroid injection. The patient did consent to move forward with the De Quervain injection, which was tolerated well. I recommended rest, ice, and elevation and OTC anti-inflammatories as needed for discomfort. I updated her order for the EMG/nerve conduction study. If symptoms persist over the next 6-8 weeks, they will contact the office, otherwise as needed. Patient Instructions: Scribed for Deborah New PA-C, by Ryan Crooks medical laboratory technicians, on 08/18/2023 at 9:00 AM EST. I, Deborah New PA-C, have personally reviewed and agree with the information entered by the scribe.
[2023-08-18 08:59] VITALS: BMI 34.5
== END 2023-08-18 09:33 | disposition home or self-care (01) ==
PROVIDERS: PCP Internal Medicine; Visit Provider Physician Assistant
DX: M65.4 Radial styloid tenosynovitis [de Quervain] (principal)
CPT/HCPCS: 20550; 99213

== ENCOUNTER → 2023-08-18 08:27 | Outpatient (BNVA) | payer OTHER, SELFPAY | PROVIDERS: PCP Internal Medicine; Visit Provider Physician Assistant | DX: M65.4 Radial styloid tenosynovitis [de Quervain] (principal) | CPT/HCPCS: 20550; 99212; J1100 ==

== ENCOUNTER → 2023-08-19 08:15 | Outpatient (BNV) | payer OTHER, SELFPAY | PROVIDERS: PCP Internal Medicine; Visit Provider Radiology Diagnostic Radiology | DX: Z12.31 Encounter for screening mammogram for malignant neoplasm of breast (principal) | CPT/HCPCS: 77063; 77067 ==

== ENCOUNTER 2023-08-19 08:20 | Outpatient (REF) | payer OTHER, SELFPAY ==
--- NOTE | ~2023-08-19 | MM_ITS ---
EXAMINATION: MM SCREENING DIGITAL BREAST TOMOSYNTHESIS, BILATERAL CLINICAL INFORMATION: Screening. Asymptomatic. COMPARISON: Mammography: This study is compared with prior exams dating back to 2018. TECHNIQUE: Digital breast tomosynthesis is performed in both the craniocaudal and mediolateral oblique views along with computer-aided detection (CAD). Synthesized 2D images are generated from the tomosynthesis. FINDINGS: There are scattered areas of fibroglandular density (ACR BI-RADS breast composition Category b). There is a focal asymmetry in the posterior nipple line of the right breast at a middle depth. Additional mammographic and targeted sonographic imaging of this finding is advised. In the left breast, there are no significant masses, abnormal calcifications, or other abnormalities. Few, bilateral benign calcifications are present. MM/MM tomosynthesis screening BI IMPRESSION: Focal asymmetry of the right breast warrants additional mammographic and targeted sonographic imaging. No mammographic signs of malignancy left breast. ASSESSMENT: BI-RADS BI-RADS 0 - Incomplete: Needs additional Imaging. RECOMMENDATION: 1. Additional views of the right breast. 2. Targeted ultrasound if warranted after review of the additional views. 3. Radiology department staff will contact the patient for additional imaging. Additional Imaging required This examination should not preclude the clinical evaluation of a suspicious palpable abnormality. This patient's information was entered into a reminder system with a target due date for their next mammogram.
== END 2023-08-19 08:21 | disposition home or self-care (01) ==
LOC: HO.MAMMO 08:20
PROVIDERS: PCP Internal Medicine; Visit Provider Internal Medicine
DX: Z12.31 Encounter for screening mammogram for malignant neoplasm of breast (principal)
CPT/HCPCS: 77063; 77067

== ENCOUNTER 2023-09-02 07:54 | Outpatient (AMB) | payer OTHER, SELFPAY ==
[2023-09-02 08:06] VITALS: BP 126/68; PULSE 75; O2SAT 98; BMI 34.7
--- NOTE | 2023-09-02 08:06 | MHC.PC.OV ---
Vital Signs 09/02/23 08:06 Height 5 ft 4 in Weight 202 lb 4 oz BMI 34.7 BP 126/68 Blood Pressure Location Rt brachial Position Sitting Pulse 75 Pulse Source Pulse Oximeter Pulse Oximetry (%) 98 Oxygen Delivery Method Room Air Intake Visit Reasons: Follow up on concerns Allergies No Known Allergies Allergy (Verified 09/02/23 08:09) Medication List - Last Reconciled 09/02/23 by Keeley Dugan MD acetaminophen (Tylenol Extra Strength) 500 mg PO TID PRN 90 days cetirizine 10 mg PO DAILY PRN cholecalciferol (vitamin D3) 25 mcg PO DAILY 90 days cholecalciferol (vitamin D3) 50 mcg PO DAILY 90 days diclofenac sodium 1% (Arthritis Pain (diclofenac)) 2 grams topical QID 30 days escitalopram oxalate (Lexapro) 10 mg PO DAILY fluticasone propionate 50 mcg/actuation (Flonase Allergy Relief) 1 spray intranasal DAILY furosemide 20 mg PO Q OTHER DAY 90 days gabapentin 300 mg PO BID omeprazole 20 mg (2 x 10 mg) PO DAILY 90 days solifenacin (Vesicare) 10 mg PO DAILY triamcinolone acetonide 0.1% 1 appl topical DAILY 30 days Tobacco use date assessed: 09/02/23 Fall risk assessment: No Falls in past year Last assessed Fall Risk: 09/02/23 Dental Screening Dental Screen Date: 09/02/23 Did you have a dental visit in the last 12 months?: No Did you have a dental problem in the last 6 months where you did not have access to dental care?: No Was dental information given to patient?: Patient has dentist HPI Follow up on concerns HPI Details Patient is 68-year-old female came in today to talk about her living situation Patient is currently living in 1 bedroom apartment with small windows and no sunlight Patient says that since they have moved to this new place there allergies are worse It smells like mold Patient is requesting 2 bedroom apartment, she suffers from numerous medical problems and her as well They are having difficulty sleeping in the same room as both of them get up numerous time at night and causes disruption Letter provided She is also requesting medicine for allergies and refill on her arthritic cream. [facility] Medical History Visit for suture removal Surgical History H/O colonoscopy Social History Household Members: Spouse Housing: House Alcohol intake: current Alcohol intake frequency: does not drink Patient Tobacco Use Status: Never used Tobacco e-Cigarette/Vaping Use: Never Used Second Hand Smoke Exposure: No service: No Current occupational status: retired Cognitive needs: No Hearing needs: No Vision needs: No Questionnaire Thrive Questionnaire Date Thrive assessed: 05/06/23 AUDIT C Alcohol Use Questionnaire (AUDIT-C) 1. How often do you have a drink containing alcohol?: Never 3. How often do you have six or more drinks on one occasion?: Never Total Score: 0 Score Reviewed/Action Taken: Yes LANG-7 AMB Questionnaire LANG-7 Date LANG - 7 assessed: 05/06/23 Source: Developed by Drs. Yusuf Bliss, Adele Norris, Mario Vincent and colleagues, with an educational nba from [employer]. Review of Systems Const All systems reviewed & are unremarkable except as noted in HPI and below Physical exam (Primary Care) Vital Signs: Last Vital Signs Pulse 75 09/02/23 08:06 BP 126/68 09/02/23 08:06 Pulse Ox 98 09/02/23 08:06 Oxygen Delivery Method Room Air 09/02/23 08:06 BMI result Body Mass Index 34.7 Tobacco/Smoking Status: Tobacco use Status Tobacco use date assessed 09/02/23 09/02/23 08:11 Patient Tobacco Use Status Never used Tobacco 09/02/23 08:11 e-Cigarette/Vaping Use Never Used 09/02/23 08:11 Thrive Assessment: Date of Thrive Assessment Date Thrive assessed 05/06/23 09/02/23 08:11 Const General: no acute distress Orientation/consciousness: patient oriented x3 Eyes General: appearance normal, both eyes and all related structures Resp Effort & Inspection: normal respiratory effort and able to speak in complete sentences Auscultation: clear to auscultation bilaterally Neuro General: patient oriented x3 Psych Mental Status: mental status grossly normal Assessment and Plan Assessment & Plan (1) Environmental allergies: Code(s): Z91.09 - Other allergy status, other than to drugs and biological substances (2) Osteoarthritis of multiple joints: Code(s): M15.9 - Polyosteoarthritis, unspecified Qualifiers: Osteoarthritis type: primary Qualified Code(s): M15.9 - Polyosteoarthritis, unspecified (3) Difficulty sleeping: Code(s): G47.9 - Sleep disorder, unspecified Plan Patient is 68-year-old female came in today to talk about her living situation Patient is currently living in 1 bedroom apartment with small windows and no sunlight Patient says that since they have moved to this new place there allergies are worse It smells like mold Patient is requesting 2 bedroom apartment, she suffers from numerous medical problems and her as well They are having difficulty sleeping in the same room as both of them get up numerous time at night and causes disruption Letter provided She is also requesting medicine for allergies and refill on her arthritic cream. Medications: Refilled cetirizine 10 mg PO DAILY PRN 90 tabs 3RF allergy symptoms diclofenac sodium 1% (Arthritis Pain (diclofenac)) Apply to knee once a day 2 grams topical QID 30 days 100 grams 3RF Coding Level of Care Code Est Pt Level 3 (02223) Diagnoses Environmental allergies Z91.09 Primary osteoarthritis involving multiple joints M15.9 Osteoarthritis type: primary Difficulty sleeping G47.9
== END 2023-09-02 08:31 | disposition home or self-care (01) ==
PROVIDERS: PCP Internal Medicine; Visit Provider Internal Medicine
DX: Z91.09 Other allergy status, other than to drugs and biological substances (principal); M15.9 Polyosteoarthritis, unspecified; G47.9 Sleep disorder, unspecified
CPT/HCPCS: 99213

== ENCOUNTER 2023-09-22 06:56 | Outpatient (AMB) | payer OTHER, SELFPAY ==
--- NOTE | 2023-09-22 08:27 | A.OFFPC_ITS ---
Intake Visit Reasons: Discuss Results~ [phone] Allergies No Known Allergies Allergy (Verified 09/22/23 09:05) Tobacco use date assessed: 09/22/23 Fall risk assessment: No Falls in past year Last assessed Fall Risk: 09/22/23 Dental Screening Dental Screen Date: 09/22/23 Did you have a dental visit in the last 12 months?: No Did you have a dental problem in the last 6 months where you did not have access to dental care?: No Was dental information given to patient?: Patient has dentist HPI Discuss Results~ [phone] HPI Details This is a telemed visit Patient has language barrier recently,she had mamogram done recently, she need extra views of her breast Patient says that somebody did try to contact her but she was not able to stand them Explained to patient that she need to call mammogram center to book the appointment Also explained to her why we need added views. Patient says that she would appreciate if we can make the appointment for her and let her know. We will reach out to woman center. [facility] Medical History Visit for suture removal Surgical History H/O colonoscopy Social History Household Members: Spouse Housing: House Alcohol intake: current Alcohol intake frequency: does not drink Patient Tobacco Use Status: Never used Tobacco e-Cigarette/Vaping Use: Never Used Second Hand Smoke Exposure: No service: No Current occupational status: retired Cognitive needs: No Hearing needs: No Vision needs: No Questionnaire Thrive Questionnaire Date Thrive assessed: 05/06/23 AUDIT C Alcohol Use Questionnaire (AUDIT-C) 1. How often do you have a drink containing alcohol?: Never 3. How often do you have six or more drinks on one occasion?: Never Total Score: 0 Score Reviewed/Action Taken: Yes LANG-7 AMB Questionnaire LANG-7 Date LANG - 7 assessed: 05/06/23 Source: Developed by Drs. Yusuf Bliss, Adele Norris, Mario Vincent and colleagues, with an educational nba from [employer]. Review of Systems Const Denies chills and Denies fever(s) ENT Denies epistaxis and Denies nasal discharge Card Denies chest pain Resp Denies chest congestion, Denies cough and Denies hemoptysis GI Denies diarrhea and Denies nausea Skin/Breast Denies rash Neuro Reports no additional complaints Psych Reports no additional complaints Endo Reports no additional complaints Physical exam (Primary Care) Tobacco/Smoking Status: Tobacco use Status Tobacco use date assessed 09/22/23 09/22/23 09:06 Patient Tobacco Use Status Never used Tobacco 09/22/23 08:30 e-Cigarette/Vaping Use Never Used 09/22/23 08:30 Thrive Assessment: Date of Thrive Assessment Date Thrive assessed 05/06/23 09/22/23 08:30 Telehealth Telehealth Telehealth Platform: [employer] Location of provider rendering services: practice address Location of patient: address on file Patient Identification confirmed using: Name, : Yes Telehealth method: voice only Patient verbally consented to treatment: Yes Patient verbally consented to billing insurance company: Yes Patient informed of any privacy concerns related to visit: Yes Minutes spent on Phone/Video with Pt.: 13 Assessment and Plan Assessment & Plan (1) Abnormal mammogram: Code(s): R92.8 - Other abnormal and inconclusive findings on diagnostic imaging of breast Plan This is a telemed visit Patient has language barrier recently,she had mamogram done recently, she need extra views of her breast Patient says that somebody did try to contact her but she was not able to stand them Explained to patient that she need to call mammogram center to book the appointment Also explained to her why we need added views. Patient says that she would appreciate if we can make the appointment for her and let her know. We will reach out to woman center. Coding Level of Care Code Tele Est Pt Level 3 (18298) Diagnoses Abnormal mammogram R92.8
== END 2023-09-22 09:51 | disposition home or self-care (01) ==
LOC: HO.HMGC 06:57
PROVIDERS: PCP Internal Medicine; Visit Provider Internal Medicine
DX: R92.8 Other abnormal and inconclusive findings on diagnostic imaging of breast (principal)
CPT/HCPCS: 99442

== ENCOUNTER 2023-09-23 09:29 | Outpatient (REF) | payer OTHER, SELFPAY ==
--- NOTE | ~2023-09-23 | MM_ITS ---
EXAMINATION: MM DIAGNOSTIC DIGITAL BREAST TOMOSYNTHESIS, RIGHT CLINICAL INFORMATION: Diagnostic to evaluate focal asymmetry in the posterior nipple line of the right breast at middle depth. This has an associated coarse calcification peripherally. COMPARISON: Mammography: 08/19/2023, 02/02/2019. TECHNIQUE: Digital breast tomosynthesis is performed. 2D images are generated from the tomosynthesis. The following views are obtained: Full-field 3-D right mediolateral view, as well as 3-D spot compression right CC and MLO views. This was followed by diagnostic right breast ultrasound. FINDINGS: There are scattered areas of fibroglandular density (ACR BI-RADS breast composition Category b). In the approximate 2-3 o'clock axis of the right breast, there is a 5 x 5 x 5 mm circumscribed mass within associated peripheral macrocalcification, suspicious for a degenerating fibroadenoma or other benign entity. This was present on prior mammography of 2019 but measured 2-3 mm. It has slowly grown over 5 years. It is likely benign. No additional suspicious findings are seen in the right breast. There are calcified vessels noted. There is no adenopathy in the right axilla. There is no skin abnormality. ULTRASOUND: CLINICAL INFORMATION: As above. COMPARISON: None TECHNIQUE: Targeted sonographic evaluation was performed using a high frequency linear transducer. Attention to the 2-3 o'clock axis right breast was given. Selected archived documentation. FINDINGS: RIGHT BREAST: -Both myself and the technologist scanned the patient. -There is a minimally complicated cyst in the 2:00 axis of the right breast, 3 cm from the nipple, measuring 5 x 5 x 5 mm, with an associated peripheral wall macrocalcification, and a few specular internal echoes. There is good through transmission. There is no color Doppler flow. There is no surrounding fat distortion or echogenicity. This otherwise has completely benign characteristics. No additional persistent abnormality is present in this region. A small adjacent suspected nodule in the transverse plane measuring 3 mm does not persist in the orthogonal plane and is consistent with a normal fat lobule situated within a Naldo's ligament. MM/MM tomosynthesis added views R IMPRESSION: -No findings suspicious for malignancy in the right breast. -Mammographic finding represents a minimally complicated cyst with peripheral calcification as detailed above. This is suitable for six-month follow-up diagnostic targeted right breast ultrasound. It is probably benign. OVERALL ASSESSMENT: Mammography: BI-RADS 3 - Probably benign finding(s) - 6 month follow-up suggested Ultrasound: BI-RADS 3 - Probably benign finding(s) - 6 month follow-up suggested RECOMMENDATION: 6 Month F/U
== END 2023-09-23 09:30 | disposition home or self-care (01) ==
LOC: HO.MAMMO 09:29
PROVIDERS: PCP Internal Medicine; Visit Provider Internal Medicine
DX: N64.89 Other specified disorders of breast (principal)
CPT/HCPCS: 76642; 77061; 77065

== ENCOUNTER → 2023-09-23 09:30 | Outpatient (BNV) | payer OTHER, SELFPAY | PROVIDERS: PCP Internal Medicine; Visit Provider Radiology Diagnostic Radiology | DX: R92.1 Mammographic calcification found on diagnostic imaging of breast (principal) | CPT/HCPCS: 76642; 77065; G0279 ==

== ENCOUNTER 2023-10-14 08:00 | Outpatient (RCR) | payer OTHER, SELFPAY ==
--- NOTE | 2023-08-31 14:10 | MHC.OT.EP ---
[address] [phone] Occupational Therapy Plan of Care Patient Name: Julia Mccarty Date of Evaluation: 08/31/23 Diagnosis: Left hand pain Pain Location: Left radial wrist constant sharp pain Sharp pain and locking in left ring finger, tenderness in volar MCP Sharp pain in right thumb at MCP Pain Score: 5 Pain Scale Used: DraperMirella (Faces) Aggravating Factors: Nighttime pain Alleviating Factors: Trialed wearing wrist orthosis w/ no relief Assessment: 68 yo female w/ hx of left hand pain due to De Quervain's tendinitis and ring finger and thumb pain. 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 She had injection to left radial wrist 08/11/23 w/ no relief. She reports more stiffness in thumb, ring finger and wrist w/ increased pain at nighttime. She has had limited relief with therapy in the past or with recent cortisone injection. Today she is very guarded with digit and wrist movement. Assessment is consistent w/ left D4 trigger finger, D1 OA and radial wrist tendinitis. I believe she will do well w/ course of OT for progression of range and general use of left hand w/ education on joint protection and pain management techniques. She has been fit w/ oval 8 to left ring finger and educated on daily/nightly wear to reduce triggering and we will address further splinting needs on her next visit. Frequency and Duration: The patient will be seen 2x/wk for 4 weeks Short Term Goals: Ind w/ orthosis wear Ind w/ use of cold and heat modalities for comfort and inflammation Good follow through w/ joint protection techniques Electric Furnace Operator Goals: Pt to demo active thumb opp to small finger w/ ease Wrist flex to 50 degrees w/ ease Pain free hand/wrist at rest Pt to demo good use of left hand w/ light bimanual tasks (folding laundry, tying clothes, prepping food) Treatment Plan: Therapeutic Exercise Therapeutic Activity Home Exercise Program Splinting Patient Education Edema Control ADL Training Ultrasound Iontophoresis Paraffin Fluidotherapy MHP Cold Packs Soft Tissue Mobilization Kinesiotaping D4 Oval 8 Thumb spica orthosis Ionto w/ dexamethasone Electronically Signed By: Viviana Zapka, OTR/L CHT Please Sign and return to therapist. Thank you once again for your referral.
--- NOTE | 2023-11-17 13:19 | MHC.OT.DC ---
[address] [phone] F: [phone] Occupational Therapy Discharge Note Patient Name: Julia Mccarty Provider: Dr Keeley Dugan Diagnosis: Left hand pain Date of Evaluation: 08/31/23 Date of Discharge: 11/17/23 Treatments to Date: 10 Discharge Status: Discharge Summary: Julia was referred to OT w/ hand pain. She had been reporting decreased pain and good follow through w/ orthosis wear and HEP. She continued to have some difficulties w/ joint protection/activity modification and shredding machine tender over radial wrist and in thumb MCP, increased pain w/ thumb ext and wrist deviation. She has been on vacation and not seen in clinic for > one month. We will be discharging from services at this time, she is Ind w/ her home program and has been educated on techniques for joint protection, activity modification and pain management. Electronically Signed By: SANDY Florez/Alvaro CHT Reviewed/agree with student documentation: N/A Therapist: Please Sign and return to therapist, thank you for your referral.
== END 2023-11-17 13:19 | disposition home or self-care (01) ==
LOC: HO.OT 08:00
PROVIDERS: PCP Internal Medicine; Visit Provider Internal Medicine
DX: M79.645 Pain in left finger(s) (principal)
CPT/HCPCS: 97033; 97035; 97110; 97140; 97166

== ENCOUNTER 2024-02-08 08:21 | Outpatient (AMB) | payer OTHER, SELFPAY ==
--- NOTE | 2024-02-08 08:26 | AM.OFFWIN_ITS ---
Intake Vital Signs 02/08/24 08:28 Weight 207 lb BP 142/84 H Blood Pressure Location Lt brachial Position Sitting Pulse 62 Pulse Source Pulse Oximeter Pulse Oximetry (%) 98 Oxygen Delivery Method Room Air Intake Visit Reasons: EP Body pain,not feeling well,shaky Intake Note: Patient here for body pain and blurry vision which she mentioned could be related to BP Patient Tobacco Use Status: Never used Tobacco Allergies No Known Allergies Allergy (Verified 02/08/24 08:29) Do you need a note to return to daycare/school/sports/work: No HPI EP Body pain,not feeling well,shaky HPI Details This note is constructed using voice recognition software. While every effort has been made to ensure accuracy, human geography faculty member errors may have been included. Wol[place] residential child care counselor via tablet for visit, though patient did speak some Luxembourgish during the visit. The patient is a 68 year old female who presents to the clinic today with body aches and just generally not feeling well since yesterday, with vomiting onset today. She did eat her entire breakfast today. She denies fever, chills, cough, however she did have 1 in the visit, shortness breath. She reports the body aches to be primarily in her shoulders. She denies numbness and tingling into her arms or any difficulty with range of motion. She reports some low energy. She typically does test for COVID weekly, and has remained negative. [facility] Medical History Visit for suture removal Surgical History H/O colonoscopy Social History Household Members: Spouse Housing: House Alcohol intake: current Alcohol intake frequency: does not drink Patient Tobacco Use Status: Never used Tobacco e-Cigarette/Vaping Use: Never Used Second Hand Smoke Exposure: No service: No Current occupational status: retired Cognitive needs: No Hearing needs: No Vision needs: No Review of Systems Const All systems reviewed & are unremarkable except as noted in HPI and below Physical Exam Vital Signs: Last Vital Signs Pulse 62 02/08/24 08:28 BP 142/84 H 02/08/24 08:28 Pulse Ox 98 02/08/24 08:28 Oxygen Delivery Method Room Air 02/08/24 08:28 Const General: cooperative, healthy appearing, comfortable and no acute distress Orientation/consciousness: patient oriented x3 Limitations: no limitations HEENT Head: Yes normal to inspection Ears: hearing grossly normal bilaterally, external ears normal and TM's normal bilaterally General nose exam: Normal external nose present, Normal nares present and No nasal discharge present Face and sinus: Yes normal facial exam and Yes sinuses nontender Mouth: Normal oral and palatal mucosa present and moist mucous membranes Throat: Yes tonsils normal, Yes uvula midline and Yes posterior oropharynx abnormal (Erythema) Eyes General: appearance normal, both eyes and all related structures Neck Neck: Yes normal visual inspection Resp Effort & Inspection: normal respiratory effort, able to speak in complete sentences, Actively coughing, no respiratory distress, not tachypneic, no tripod positioning and no use of accessory muscles Auscultation: clear to auscultation bilaterally Cardio Jugular venous distension: no JVD Rate: regular rate Rhythm: regular rhythm Heart sounds: S1 normal heart sound present, S2 normal heart sound present, no click, no gallops, no murmurs and no rubs Bruits: no abdominal aortic bruits GI Inspection: Yes normal to inspection Palpation (GI): No Abdominal aortic bruit present, Soft to palpation and nontender Auscultation: normal bowel sounds Skin General skin exam: no rashes or lesions noted, elasticity normal and turgor normal Neuro General: patient oriented x3 Extrem General: Yes normal to inspection and Yes no clubbing, cyanosis or edema Assessment & Plan Assessment & Plan (1) Viral gastroenteritis: Code(s): A08.4 - Viral intestinal infection, unspecified Plan: Advised adequate hydration measures. Zofran sent for symptomatic treatment of nausea. Reviewed typical trajectory of timeline of illness. Advised follow up as needed with worsening or failure to resolve. (2) URI (upper respiratory infection): Code(s): J06.9 - Acute upper respiratory infection, unspecified Qualifiers: URI type: unspecified URI Qualified Code(s): J06.9 - Acute upper respiratory infection, unspecified Plan: Viral swab obtained to rule out Covid based on symptoms. Advised mask wearing while symptomatic and quarantine per current CDC guidelines. Reviewed at home support methods including hydration, humidification, vix vapor rub, sinus rinse. Advised follow up with worsening symptoms such as dyspnea at rest, which would require emergent evaluation. Plan See above for full details and plan. Orders: Orders SARS-CoV2/FLU/RSV Today J06.9 - Acute upper respiratory infection, unspecified Medications: New ondansetron 4 mg PO Q8H 3 days PRN 9 tabs 0RF nausea and vomiting Coding Level of Care Code Est Pt Level 3 (73979) Diagnoses Viral gastroenteritis A08.4 Upper respiratory tract infection, unspecified type J06.9 URI type: unspecified URI
[2024-02-08 08:28] VITALS: BP 142/84; PULSE 62; O2SAT 98
== END 2024-02-08 09:07 | disposition home or self-care (01) ==
PROVIDERS: PCP Internal Medicine; Visit Provider Registered Nurse
DX: A08.4 Viral intestinal infection, unspecified (principal); J06.9 Acute upper respiratory infection, unspecified

== ENCOUNTER 2024-02-08 08:21 | Outpatient (REF) | payer OTHER, SELFPAY ==
[2024-02-08 10:47] LABS: Influenza A PCR NEGATIVE (Negative); Influenza B PCR NEGATIVE (Negative); Resp Syncy Virus RNA Qual PCR NEGATIVE (Negative); SARS COV2 PCR INHOUSE NEGATIVE (Negative)
== END 2024-02-08 08:22 | disposition home or self-care (01) ==
LOC: HO.LAB 08:21
PROVIDERS: PCP Internal Medicine; Visit Provider Registered Nurse
DX: J06.9 Acute upper respiratory infection, unspecified (principal); A08.4 Viral intestinal infection, unspecified; Z79.899 Other long term (current) drug therapy
CPT/HCPCS: 0241U; 99212

== ENCOUNTER 2024-02-22 14:07 | Outpatient (AMB) | payer OTHER, SELFPAY ==
--- NOTE | 2024-02-22 14:57 | AM.OFFWIN_ITS ---
Intake Vital Signs 02/22/24 14:58 Height 5 ft 4 in Weight 207 lb BMI 35.5 BP 122/84 Blood Pressure Location Lt brachial Position Sitting Pulse 80 Pulse Source Pulse Oximeter Pulse Oximetry (%) 97 Oxygen Delivery Method Room Air Intake Visit Reasons: EP not feeling well, body aches Intake Note: Patient here for eyes watering often, left leg tingling and not feeling well. Patient Tobacco Use Status: Never used Tobacco Allergies No Known Allergies Allergy (Verified 02/22/24 15:00) Do you need a note to return to daycare/school/sports/work: No HPI EP not feeling well, body aches HPI Details This note is constructed using voice recognition software. While every effort has been made to ensure accuracy, car inspection and repair manager errors may have been included. Audio toll bridge operator using Malay language for entire visit. The patient is a 68 year old female who presents to the clinic today with bilateral leg sensation of cold and tingling. She notes that she takes medication for pain but she is unsure what medication it is other than Tylenol. She reports that what she had she has run out of and needs refill of this. On review of medication list it was noted that she had been on gabapentin, and she reports that that is the medication that she is out of. She reports that she has been forgetful for some time, and has been following neurology in the past for this. They forgetfulness does make it harder for her to distinguish what medication she is supposed to be taking and when. She continues to take Tylenol, which does not seem to help the pain. She reports the pain to be below the knee. She has had no new injuries, or previous surgeries to the area. She requests a refill of her gabapentin which she had been on, and has not been filled since August. [facility] Medical History Visit for suture removal Surgical History H/O colonoscopy Social History Household Members: Spouse Housing: House Alcohol intake: current Alcohol intake frequency: does not drink Patient Tobacco Use Status: Never used Tobacco e-Cigarette/Vaping Use: Never Used Second Hand Smoke Exposure: No service: No Current occupational status: retired Cognitive needs: No Hearing needs: No Vision needs: No Review of Systems Const All systems reviewed & are unremarkable except as noted in HPI and below Physical Exam Vital Signs: Last Vital Signs Pulse 80 02/22/24 14:58 BP 122/84 02/22/24 14:58 Pulse Ox 97 02/22/24 14:58 Oxygen Delivery Method Room Air 02/22/24 14:58 BMI result Body Mass Index 35.5 Const General: cooperative, healthy appearing, comfortable, no acute distress and well developed Orientation/consciousness: patient oriented x3 Limitations: no limitations Eyes General: appearance normal, both eyes and all related structures Neck Neck: Yes normal visual inspection Resp Effort & Inspection: normal respiratory effort and able to speak in complete sentences Skin General skin exam: no rashes or lesions noted Neuro General: patient oriented x3 Extrem Other: Feet, ankles, knees full range of motion bilaterally. Positive pulses, no edema. Distal neurovascular exam intact. General: Yes normal to inspection Assessment & Plan Assessment & Plan (1) Neuropathy: Code(s): G62.9 - Polyneuropathy, unspecified Plan: Patient reports that she has been on gabapentin for some time, and has run out of the medication at an unknown time in the past. Based on the current medical records she has not had this prescribed in several months, but likely may benefit from resuming the medication. Message sent to Care team to coordinate care and determine appropriate dosing of medication and refills if appropriate. Advised patient to follow up with her primary care provider as she has been dealing with these chronic issues for many months, and likely requires elisa tional follow up. Can given lack of new symptoms, or sudden cessation of medication, medication not prescribed at this time. Imaging also not indicated at this time. Plan See above for full details and plan. Coding Level of Care Code Est Pt Level 4 (93352) Diagnoses Neuropathy G62.9
[2024-02-22 14:58] VITALS: BP 122/84; PULSE 80; O2SAT 97; BMI 35.5
== END 2024-02-22 15:35 | disposition home or self-care (01) ==
PROVIDERS: PCP Internal Medicine; Visit Provider Registered Nurse
DX: G62.9 Polyneuropathy, unspecified (principal)

== ENCOUNTER → 2024-02-22 14:07 | Outpatient (BNVA) | payer OTHER, SELFPAY | PROVIDERS: PCP Internal Medicine | DX: G62.9 Polyneuropathy, unspecified (principal) | CPT/HCPCS: 99212 ==

== ENCOUNTER 2024-03-23 | Outpatient (REF) | payer OTHER, SELFPAY | END 2024-03-23 00:01 | disposition home or self-care (01) | LOC: CF | PROVIDERS: PCP Internal Medicine; Visit Provider Internal Medicine | DX: N39.46 Mixed incontinence (principal); E66.09 Other obesity due to excess calories; Z68.33 Body mass index [BMI] 33.0-33.9, adult; L20.84 Intrinsic (allergic) eczema; Z91.09 Other allergy status, other than to drugs and biological substances | CPT/HCPCS: 99212 ==

== ENCOUNTER 2024-03-23 12:21 | Outpatient (AMB) | payer OTHER, SELFPAY ==
--- NOTE | 2024-03-23 12:22 | A.OFFPC_ITS ---
Vital Signs 03/23/24 12:32 Height 5 ft 4 in Weight 207 lb BMI 35.5 BP 126/88 Pulse 80 Pulse Oximetry (%) 99 Intake Visit Reasons: F/U Allergies No Known Allergies Allergy (Verified 02/22/24 15:00) Medication List - Last Reconciled 03/23/24 by Keeley Dugan MD acetaminophen (Tylenol Extra Strength) 500 mg PO TID PRN 90 days cetirizine 10 mg PO DAILY PRN cholecalciferol (vitamin D3) 25 mcg PO DAILY 90 days cholecalciferol (vitamin D3) 50 mcg PO DAILY 90 days diclofenac sodium 1% (Arthritis Pain (diclofenac)) 2 grams topical QID 30 days escitalopram oxalate (Lexapro) 10 mg PO DAILY fluticasone propionate 50 mcg/actuation (Flonase Allergy Relief) 1 spray intranasal DAILY furosemide 20 mg PO Q OTHER DAY 90 days gabapentin 300 mg PO BID omeprazole 20 mg (2 x 10 mg) PO DAILY ondansetron 4 mg PO Q8H PRN 3 days solifenacin (Vesicare) 10 mg PO DAILY triamcinolone acetonide 0.1% 1 appl topical DAILY 30 days Tobacco use date assessed: 09/22/23 Dental Screening Dental Screen Date: 09/22/23 HPI F/U HPI Details Patient is 68 female came in today for medication refill Bladder incontinence : Patient is taking VESIcare which is helping her she is requesting refill Allergies are acting up as she ran out of her cetirizine refills sent She is also requesting a refill on triamcinolone which she uses on eczema All refills sent, patient offer no other complaint Obesity, patient is having difficulty losing weight PFSH Medical History Visit for suture removal Surgical History H/O colonoscopy Social History Household Members: Spouse Housing: House Alcohol intake: current Alcohol intake frequency: does not drink Patient Tobacco Use Status: Never used Tobacco e-Cigarette/Vaping Use: Never Used Second Hand Smoke Exposure: No service: No Current occupational status: retired Cognitive needs: No Hearing needs: No Vision needs: No Questionnaire Thrive Questionnaire Date Thrive assessed: 05/06/23 LANG-7 AMB Questionnaire LANG-7 Date LANG - 7 assessed: 05/06/23 Source: Developed by Drs. uYsuf Bliss, Adele Norris, Mario Vincent and colleagues, with an educational nba from [employer]. Review of Systems Const Denies chills and Denies fever(s) ENT Denies epistaxis and Denies nasal discharge Card Denies chest pain Resp Denies chest congestion, Denies cough and Denies hemoptysis GI Denies diarrhea and Denies nausea Skin/Breast Denies rash Neuro Reports no additional complaints Psych Reports no additional complaints Endo Reports no additional complaints Physical exam (Primary Care) Tobacco/Smoking Status: Tobacco use Status Tobacco use date assessed 09/22/23 03/23/24 12:22 Patient Tobacco Use Status Never used Tobacco 03/23/24 12:22 e-Cigarette/Vaping Use Never Used 03/23/24 12:22 Thrive Assessment: Date of Thrive Assessment Date Thrive assessed 05/06/23 03/23/24 12:22 Const General: cooperative, comfortable and no acute distress Orientation/consciousness: patient oriented x3 HENMT Head: Yes normocephalic Eyes General: appearance normal, both eyes and all related structures Neck Neck: Yes supple Resp Effort & Inspection: normal respiratory effort, no cough and no stridor Cardio Rhythm: regular rhythm Heart sounds: S1 normal heart sound present and S2 normal heart sound present Skin General skin exam: turgor normal Neuro General: patient oriented x3, tone normal and moves all extremities Extrem Right lower extremity: no edema Left lower extremity: no edema Coding Level of Care Code Est Pt Level 3 (20294) Diagnoses Mixed stress and urge urinary incontinence N39.46 Urinary Incontinence type: mixed stress and urge incontinence Class 1 obesity due to excess calories with serious comorbidity and body mass index (BMI) of 33.0 to 33.9 in adult E66.09; Z68.33 Obesity type: due to excess calories Obesity classification: adult class 1 (BMI 30 - 34.9) Serious obesity comorbidity presence: with serious comorbidity Body mass index: BMI 33.0-33.9 Intrinsic eczema L20.84 Eczema type: intrinsic Environmental allergies Z91.09 Assessment & Plan Assessment & Plan (1) Incontinence of urine: Code(s): R32 - Unspecified urinary incontinence Category: Medical Qualifiers: Urinary Incontinence type: mixed stress and urge incontinence Qualified Code(s): N39.46 - Mixed incontinence (2) Obesity: Code(s): E66.9 - Obesity, unspecified Category: Medical Qualifiers: Obesity type: due to excess calories Obesity classification: adult class 1 (BMI 30 - 34.9) Serious obesity comorbidity presence: with serious comorbidity Body mass index: BMI 33.0-33.9 Qualified Code(s): E66.09 - Other obesity due to excess calories; Z68.33 - Body mass index [BMI] 33.0-33.9, adult (3) Eczema: Code(s): L30.9 - Dermatitis, unspecified Category: Medical Qualifiers: Eczema type: intrinsic Qualified Code(s): L20.84 - Intrinsic (allergic) eczema (4) Environmental allergies: Code(s): Z91.09 - Other allergy status, other than to drugs and biological substances Category: Medical Plan Patient is 68 female came in today for medication refill Bladder incontinence : Patient is taking VESIcare which is helping her she is requesting refill Allergies are acting up as she ran out of her cetirizine refills sent She is also requesting a refill on triamcinolone which she uses on eczema All refills sent, patient offer no other complaint Obesity, patient is having difficulty losing weight Medications: Refilled acetaminophen (Tylenol Extra Strength) 500 mg PO TID 90 days PRN 240 tabs 0RF pain cholecalciferol (vitamin D3) 25 mcg PO DAILY 90 days 90 tabs 1RF omeprazole 20 mg (2 x 10 mg) PO DAILY 180 caps 1RF solifenacin (Vesicare) 10 mg PO DAILY 90 tabs 0RF triamcinolone acetonide 0.1% 1 appl topical DAILY 30 days 80 grams 0RF cetirizine 10 mg PO DAILY PRN 90 tabs 3RF allergy symptoms fluticasone propionate 50 mcg/actuation (Flonase Allergy Relief) administer into each nostril 1 spray intranasal DAILY 16 grams 0RF Nasal congestion escitalopram oxalate (Lexapro) 10 mg PO DAILY 90 tabs 3RF
[2024-03-23 12:32] VITALS: BP 126/88; PULSE 80; O2SAT 99; BMI 35.5
== END 2024-03-23 13:47 | disposition home or self-care (01) ==
LOC: HO.HMCC 12:21
PROVIDERS: PCP Internal Medicine; Visit Provider Internal Medicine
DX: N39.46 Mixed incontinence (principal); E66.09 Other obesity due to excess calories; Z68.33 Body mass index [BMI] 33.0-33.9, adult; L20.84 Intrinsic (allergic) eczema; Z91.09 Other allergy status, other than to drugs and biological substances

== ENCOUNTER → 2024-04-05 08:26 | Outpatient (BNVA) | payer OTHER, SELFPAY | PROVIDERS: PCP Internal Medicine; Visit Provider Internal Medicine ==

== ENCOUNTER 2024-04-20 10:21 | Outpatient (AMB) | payer OTHER, SELFPAY ==
--- NOTE | 2024-04-20 10:38 | MHC.OFFWIV ---
Intake Vital Signs 04/20/24 10:39 Weight 208 lb BP 122/78 Blood Pressure Location Rt brachial Position Sitting Pulse 81 Pulse Source Pulse Oximeter Pulse Oximetry (%) 98 Oxygen Delivery Method Room Air Intake Visit Reasons: EP Pain on both legs & feet Intake Note: Patient here for right ankle pain and bilat wrist pain and has been having difficulty sleeping due to the pain. Patient Tobacco Use Status: Never used Tobacco Allergies No Known Allergies Allergy (Verified 04/20/24 10:40) Do you need a note to return to daycare/school/sports/work: No HPI HPI Comments History of Present Illness Details Patient speaks Ordu language; interpretting services used She said for the last week she has had increased bilateral ankle and L wrist pain No trauma or injury She has hx of osteoarthritis to multiple joints as well as chronic leg edema Edema has not changed per pt and she has not noticed leg skin color changes She said + 9/10 intermittent and worse with movements Has taken tylenol without relief No numbness or tingling She denies fever, chills or other pain elsewhere She was told to wear compression stockings but does not like them PFSH Medical History Visit for suture removal Surgical History H/O colonoscopy Social History Household Members: Spouse Housing: House Alcohol intake: current Alcohol intake frequency: does not drink Patient Tobacco Use Status: Never used Tobacco e-Cigarette/Vaping Use: Never Used Second Hand Smoke Exposure: No service: No Current occupational status: retired Cognitive needs: No Hearing needs: No Vision needs: No Review of Systems Const Denies chills and Denies fever(s) Card Denies chest pain Resp Denies cough Musc Denies myalgias, Reports arthralgias (bilateral ankles and L wrist), Denies joint swelling, Denies numbness and Denies tingling Skin/Breast Denies pruritus, Denies erythema, Denies rash and Denies wounds Neuro Denies numbness and Denies tingling Physical Exam Vital Signs: Last Vital Signs Pulse 81 04/20/24 10:39 BP 122/78 04/20/24 10:39 Pulse Ox 98 04/20/24 10:39 Oxygen Delivery Method Room Air 04/20/24 10:39 General: Non-toxic, NAD. Speaking full sentences. Skin: Warm dry throughout. Legs equal in size and shape bilaterally. + slight edema to legs without pitting. No erythema or ecchymosis. No pallor to legs bilaterally and no coolness to palpation. Eye: EOMI Respiratory: No respiratory distress or stridor Cardiac: DP pulse 1+ bilaterally. No calf tenderness to palpation MSK: Diffuse tenderness to palpation R foot near 1/2nd MTP joint on plantar aspect as well as proximal plantar aspect. + ttp L ankle along medial and lateral malleoli. + full ROM digits on both feet. +point ttp dorsal aspect L wrist near proximal 2nd metacarapal bone. Neurology: Alert. No aphasia or facial droop. Gait without abnormality Psych: Good mood and affect Assessment & Plan Assessment & Plan (1) Osteoarthritis: Code(s): M19.90 - Unspecified osteoarthritis, unspecified site Qualifiers: Osteoarthritis location: multiple joints Osteoarthritis type: unspecified Qualified Code(s): M15.9 - Polyosteoarthritis, unspecified Plan: Pt seen and evaluated No specific area of tenderness and she has not had trauma no xray indicated at this time Discussed wearing compression stockings and this will help with edema and pain Discussed to monitor for skin infections and also if any pallor, pain, discoloration, numbness or worsening symptoms, go to ER immediately She as given a short course of naproxen and advised leg elevation Told to follow up with PCP She gave verbal understanding with interpreting services and had no questions at time of discharge Coding Level of Care Code Est Pt Level 4 (53711) Diagnoses Osteoarthritis of multiple joints, unspecified osteoarthritis type M15.9 Osteoarthritis location: multiple joints Osteoarthritis type: unspecified
[2024-04-20 10:39] VITALS: BP 122/78; PULSE 81; O2SAT 98
== END 2024-04-20 11:35 | disposition home or self-care (01) ==
PROVIDERS: PCP Internal Medicine; Visit Provider Physician Assistant
DX: M15.9 Polyosteoarthritis, unspecified (principal)

== ENCOUNTER → 2024-04-20 10:21 | Outpatient (BNVA) | payer OTHER, SELFPAY | PROVIDERS: PCP Internal Medicine; Visit Provider Physician Assistant | DX: M79.605 Pain in left leg (principal); M79.604 Pain in right leg; M79.672 Pain in left foot; M79.671 Pain in right foot; M25.532 Pain in left wrist; M25.531 Pain in right wrist; M25.572 Pain in left ankle and joints of left foot; M25.571 Pain in right ankle and joints of right foot; M15.9 Polyosteoarthritis, unspecified | CPT/HCPCS: 99212 ==

== ENCOUNTER → 2024-05-09 11:43 | Outpatient (BNVA) | payer OTHER, SELFPAY | PROVIDERS: PCP Internal Medicine; Visit Provider Anesthesiology | DX: M25.532 Pain in left wrist (principal); M76.60 Achilles tendinitis, unspecified leg | CPT/HCPCS: 99212 ==

== ENCOUNTER 2024-05-09 11:58 | Outpatient (AMB) | payer OTHER, SELFPAY ==
--- NOTE | 2024-05-09 11:57 | A.OFFVIS_ITS ---
Vital Signs 05/09/24 11:58 Height 5 ft 4 in Weight 208 lb BMI 35.7 BP 138/67 Blood Pressure Location Rt brachial Position Sitting Pulse 74 Pulse Source Pulse Oximeter Pulse Oximetry (%) 96 Oxygen Delivery Method Room Air Intake Visit Reasons: Pain in Left Hand Sheet Sorter Required: Yes Sheet Sorter Name: #[id number] Information Interpreted: non-clinical only Allergies No Known Allergies Allergy (Verified 05/09/24 11:59) Medication List - Last Reconciled 05/09/24 by Lana Agustin, ART THER[employer] CERTIFIED SUPERVISOR acetaminophen (Tylenol Extra Strength) 500 mg PO TID PRN 90 days cetirizine 10 mg PO DAILY PRN cholecalciferol (vitamin D3) 50 mcg PO DAILY 90 days cholecalciferol (vitamin D3) 25 mcg PO DAILY 90 days diclofenac sodium 1% (Arthritis Pain (diclofenac)) 2 grams topical QID 30 days escitalopram oxalate (Lexapro) 10 mg PO DAILY fluticasone propionate 50 mcg/actuation (Flonase Allergy Relief) 1 spray intranasal DAILY furosemide 20 mg PO Q OTHER DAY 90 days gabapentin 300 mg PO BID omeprazole 20 mg (2 x 10 mg) PO DAILY ondansetron 4 mg PO Q8H PRN 3 days solifenacin (Vesicare) 10 mg PO DAILY triamcinolone acetonide 0.1% 1 appl topical DAILY 30 days HPI HPI Pain in Left Hand: Details: 68-year-old female with history of left hand pain presenting for follow-up. She reports that she has been having left hand and wrist pain for a while. She completed 15 rounds of occupational therapy. She also underwent a corticosteroid injection of the left wrist with Dr. Richard but none of these have been very helpfu. Overall her left hand function has slightly improved with the occupational therapy but continues to have significant pain. She is not interested in any more injections at this point. She has also been using turmeric supplements. She also complains of left ankle pain, primarily in the distribution of the left Achilles tendon. She has been applying topical medications without much benefit. On exam today: Appears afebrile. Alert and oriented. Mood and affect appropriate. Follows and participates in conversation appropriately. Respiratory effort is unlabored. Able to transition from sit to stand unassisted. Ambulates with bilaterally normal heel strike and toe off. Able to stand and walk on toes and heels. There is tenderness to palpation overlying the left metacarpals and medial wrist. Tenderness to palpation overlying the left Achilles tendon. [facility] Medical History Visit for suture removal Surgical History H/O colonoscopy Social History Household Members: Spouse Housing: House Alcohol intake: current Alcohol intake frequency: does not drink Patient Tobacco Use Status: Never used Tobacco e-Cigarette/Vaping Use: Never Used Second Hand Smoke Exposure: No service: No Current occupational status: retired Cognitive needs: No Hearing needs: No Vision needs: No Physical Exam Vital Signs: Last Vital Signs Pulse 74 05/09/24 11:58 BP 138/67 05/09/24 11:58 Pulse Ox 96 05/09/24 11:58 Oxygen Delivery Method Room Air 05/09/24 11:58 BMI result Body Mass Index 35.7 Assessment & Plan Assessment & Plan (1) Pain in left wrist: Code(s): M25.532 - Pain in left wrist Category: Medical (2) Achilles tendinitis: Code(s): M76.60 - Achilles tendinitis, unspecified leg Category: Medical Plan Pain in left wrist not responsive to conservative measures including corticosteroid injection and occupational therapy. Recommend MRI of the left wrist to further assess implant for treatment. For her left Achilles tendon pain, recommended home exercises, warm soaks, magnesium supplementation and topical diclofenac application. Follow-up in 2 months. Orders: Orders MR wrist LT wo con 05/09/24 M25.532 - Pain in left wrist Medications: New diclofenac sodium 1% apply to single knee, ankle, foot; for foot includes sole/toes/top of foot 4 grams topical QID 100 grams 3RF Coding Level of Care Code Est Pt Level 4 (54436) Diagnoses Pain in left wrist M25.532 Achilles tendinitis M76.60
[2024-05-09 11:58] VITALS: BP 138/67; PULSE 74; O2SAT 96; BMI 35.7
== END 2024-05-09 12:14 | disposition home or self-care (01) ==
LOC: HO.PMC 11:58
PROVIDERS: PCP Internal Medicine; Visit Provider Internal Medicine
DX: M25.532 Pain in left wrist (principal); M76.60 Achilles tendinitis, unspecified leg
CPT/HCPCS: 99214

== ENCOUNTER 2024-05-16 08:27 | Outpatient (AMB) | payer OTHER, SELFPAY ==
[2024-05-16 08:58] VITALS: BP 124/62; PULSE 80; O2SAT 98; BMI 34.9
--- NOTE | 2024-05-16 08:58 | A.OFFPC_ITS ---
Vital Signs 05/16/24 08:58 Height 5 ft 4 in Weight 203 lb 8 oz BMI 34.9 BP 124/62 Blood Pressure Location Lt brachial Position Sitting Pulse 80 Pulse Source Pulse Oximeter Pulse Oximetry (%) 98 Oxygen Delivery Method Room Air Intake Visit Reasons: follow up walk in Allergies No Known Allergies Allergy (Verified 05/16/24 08:59) Medication List - Last Reconciled 05/16/24 by Keeley Dugan MD acetaminophen (Tylenol Extra Strength) 500 mg PO TID PRN 90 days cetirizine 10 mg PO DAILY PRN cholecalciferol (vitamin D3) 50 mcg PO DAILY 90 days cholecalciferol (vitamin D3) 25 mcg PO DAILY 90 days diclofenac sodium 1% (Arthritis Pain (diclofenac)) 2 grams topical QID 30 days diclofenac sodium 1% 4 grams topical QID escitalopram oxalate (Lexapro) 10 mg PO DAILY fluticasone propionate 50 mcg/actuation (Flonase Allergy Relief) 1 spray intranasal DAILY furosemide 20 mg PO Q OTHER DAY 90 days gabapentin 300 mg PO BID omeprazole 20 mg (2 x 10 mg) PO DAILY ondansetron 4 mg PO Q8H PRN 3 days solifenacin (Vesicare) 10 mg PO DAILY triamcinolone acetonide 0.1% 1 appl topical DAILY 30 days Tobacco use date assessed: 05/16/24 Fall risk assessment: No Falls in past year Last assessed Fall Risk: 05/16/24 Dental Screening Dental Screen Date: 05/16/24 Did you have a dental visit in the last 12 months?: No Did you have a dental problem in the last 6 months where you did not have access to dental care?: No Was dental information given to patient?: Patient has dentist HPI follow up walk in HPI Details History - bulleted - The patient is a 68-year-old female pr esenting with complaints of chronic pain, swelling, and cold sensation in her legs. - Pain and swelling in the lower extremi ties; noticeable when sitting. Cold sensation in legs reported. - Pain management has included topical m edication and OTC purchases. - Recent MRI ordered for further evaluat ion, for left pain through pain management [facility], pending insurance approval. - Insomnia complicates the chronic pain issue; patient reports lack of sleep medication. - Allergy symptoms management pending; i nsurance-related issues noted. - Swelling in legs; associated with clim ate changes. - Anxiety discussed; patient has prescri ption but not compliant with medication. Do not want to take it - GI disturbances mentioned; patient VALERIANO D and is taking PPI b.i.d. -allergies are stable. Problem List - Pain in the lower extremities - Anxiety - Chronic pain - Swelling in the legs - Cold sensation in the legs - Insomnia - Symptoms of allergy - Gastrointestinal disturbances/GERD Patient Instructions - Apply prescribed topical medication as directed. - Continue medication for pain managemen t as prescribed. - Follow instructions regarding MRI and mammogram appointments. - Ensure continuous supply of all prescr ibed medication by contacting pharmacy when the supply is low. - Note down medications in a preferred l anguage, including purpose and supply details. - Take allergy medication as prescribed once obtained. - Follow dietary and fluid restrictions advised for swelling management if applicable. - Ensure safe sleep hygiene despite lack of sleep medication. Review of Systems - Neurological: Reports insomnia and anx iety; Denies any other neurological complaints. - Musculoskeletal: Reports chronic pain, swelling, and cold sensation in legs; Denies any acute injury. - Respiratory: Denies any respiratory sy mptoms. - Cardiovascular: Denies chest pain beyo nd cold sensation. - Gastrointestinal: Reports sporadic gas trointestinal disturbances, no nausea or vomiting. - Dermatological: Denies any rashes or s kin changes. - General: No fever no chills - Neurological: No headaches no dizziness - Ear nose throat: No sore throat no hearing difficulty no ear pain - Cardiovascular: No syncope, no chest pain, no palpitations - Endocrine: No polyuria polydipsia no heat intolerance - Genitourinary: No dysuria , no blood in urine Physical Exam General: No acute distress HEENT: No acute findings Neck: Supple Respiratory system: Able to talk in full sentences, no audible wheeze cardiovascular: S1-S2 regular in rate and rhythm Gastrointestinal: No pain Extremities: No acute findings on exam APPLICATION TECHNICIAN: Alert awake oriented x3 motor sensory intact Skin: Normal turgor [facility] Medical History Visit for suture removal Surgical History H/O colonoscopy Social History Household Members: Spouse Housing: House Alcohol intake: current Alcohol intake frequency: does not drink Patient Tobacco Use Status: Never used Tobacco e-Cigarette/Vaping Use: Never Used Second Hand Smoke Exposure: No service: No Current occupational status: retired Cognitive needs: No Hearing needs: No Vision needs: No Questionnaire PHQ-9 Over the last 2 weeks, how often have you been bothered by any of the following problems? 1. Little interest or pleasure in doing things: not at all 2. Feeling down, depressed, or hopeless: not at all 3. Trouble falling or staying asleep, or sleeping too much: not at all 4. Feeling tired or having little energy: not at all 5. Poor appetite or overeating: not at all 6. Feeling bad about yourself - or that you are a failure or have let yourself or your family down: not at all 7. Trouble concentrating on things, such as reading the newspaper or watching television: not at all 8. Moving or speaking so slowly that other people could have noticed. Or the opposite - being so fidgety or restless that you have been moving around a lot more than usual: not at all 9. Thoughts that you would be better off or of hurting yourself in some way: not at all Total score: 0 Depression Screening Interpretation: Negative Depression Screening Done: Yes 38537 - PHQ-9 Billing: Yes Source: Developed by Drs. Yusuf Bliss, Adele Norris, Mario Vincent and colleagues, with an educational nba from [employer]. Thrive Questionnaire Date Thrive assessed: 05/16/24 I am a: Patient What is your living situation today?: I have a steady place to live Within the past 12 months, did the food you bought not last and you didn't have the money to get more?: Never true Within the past 12 months, did you worry whether your food would run out before you got money to buy more?: Never true Do you have trouble paying for medicines?: No Do you have trouble getting transportation to medical appointments?: No Do you have trouble paying your heating and electricity bill?: No Do you have trouble taking care of your child, family member or friend?: No Do you have trouble with day-to-day activities such as bathing, preparing meals, shopping, managing finances, etc.?: No Are you currently unemployed and looking for a job?: No Are you interested in more education?: No Please select the resources that you would like help with: None Currently or been in a relationship where the following occur: No concerns reported THRIVE Score: 0 AUDIT C Alcohol Use Questionnaire (AUDIT-C) 1. How often do you have a drink containing alcohol?: Never 3. How often do you have six or more drinks on one occasion?: Never Total Score: 0 Score Reviewed/Action Taken: Yes LANG-7 AMB Questionnaire LANG-7 Date LANG - 7 assessed: 05/16/24 Feeling nervous, anxious, or on edge: 0 = Not at all Not being able to stop or control worryin = Not at all Worrying too much about different things: 0 = Not at all Trouble relaxin = Not at all Being so restless that it is hard to sit still: 0 = Not at all Becoming easily annoyed or irritable: 0 = Not at all Feeling afraid as if something awful might happen: 0 = Not at all Total LANG-7 score (0-4 normal; 5-9 mild; 10-14 moderate; 15-21 severe): 0 Source: Developed by Drs. Yusuf Bliss, Adele Norris, Mario Vincent and colleagues, with an educational nba from [employer]. LANG-7 Assessment Billing LANG-7 Assessment Tool: LANG-7 Assessment 51637 Physical exam (Primary Care) Vital Signs: Last Vital Signs Pulse 80 05/16/24 08:58 BP 124/62 05/16/24 08:58 Pulse Ox 98 05/16/24 08:58 Oxygen Delivery Method Room Air 05/16/24 08:58 BMI result Body Mass Index 34.9 Tobacco/Smoking Status: Tobacco use Status Tobacco use date assessed 05/16/24 05/16/24 09:02 Patient Tobacco Use Status Never used Tobacco 05/16/24 09:02 e-Cigarette/Vaping Use Never Used 05/16/24 09:02 PHQ-9: PHQ-9 Score PHQ-9: Total score 0 05/16/24 09:02 Depression Screening Interpretation: Negative Thrive Assessment: Date of Thrive Assessment Date Thrive assessed 05/16/24 05/16/24 09:03 Currently or been in a relationship where the following occur: No concerns reported Coding Level of Care Code Est Pt Level 4 (79449) Complex EM visit Add On G2211 Diagnoses Primary osteoarthritis involving multiple joints M15.9 Osteoarthritis type: primary Environmental allergies Z91.09 Pre-diabetes R73.03 Class 1 obesity due to excess calories with serious comorbidity and body mass index (BMI) of 33.0 to 33.9 in adult E66.09; Z68.33 Obesity classification: adult class 1 (BMI 30 - 34.9) Serious obesity comorbidity presence: with serious comorbidity Body mass index: BMI 33.0-33.9 Bilateral swelling of feet M79.89 Recurrent major depressive disorder, in partial remission F33.41 Active/Remission status: in partial remission Difficulty sleeping G47.9 Vitamin D deficiency E55.9 Dyspepsia R10.13 Mixed stress and urge urinary incontinence N39.46 Urinary Incontinence type: mixed stress and urge incontinence Additional Codes LANG-7 Assessment Billing - LANG-7 Assessment Tool: LANG-7 Assessment 16945 ([id number]) PHQ-9 - 47909 - PHQ-9 Billing: Yes ([id number]) Assessment & Plan Assessment & Plan (1) Osteoarthritis of multiple joints: Code(s): M15.9 - Polyosteoarthritis, unspecified Category: Medical Qualifiers: Osteoarthritis type: primary Qualified Code(s): M15.9 - Polyosteoarthritis, unspecified (2) Environmental allergies: Code(s): Z91.09 - Other allergy status, other than to drugs and biological substances Category: Medical (3) Pre-diabetes: Code(s): R73.03 - Prediabetes Category: Medical (4) Obesity due to excess calories: Code(s): E66.09 - Other obesity due to excess calories Category: Medical Qualifiers: Obesity classification: adult class 1 (BMI 30 - 34.9) Serious obesity comorbidity presence: with serious comorbidity Body mass index: BMI 33.0-33.9 Qualified Code(s): E66.09 - Other obesity due to excess calories; Z68.33 - Body mass index [BMI] 33.0-33.9, adult (5) Bilateral swelling of feet: Code(s): M79.89 - Other specified soft tissue disorders Category: Medical (6) Major depression, recurrent: Code(s): F33.9 - Major depressive disorder, recurrent, unspecified Category: Medical Qualifiers: Active/Remission status: in partial remission Qualified Code(s): F33.41 - Major depressive disorder, recurrent, in partial remission (7) Difficulty sleeping: Code(s): G47.9 - Sleep disorder, unspecified Category: Medical (8) Vitamin D deficiency: Code(s): E55.9 - Vitamin D deficiency, unspecified Category: Medical (9) Dyspepsia: Code(s): R10.13 - Epigastric pain Category: Medical (10) Incontinence of urine: Code(s): R32 - Unspecified urinary incontinence Category: Medical Qualifiers: Urinary Incontinence type: mixed stress and urge incontinence Qualified Code(s): N39.46 - Mixed incontinence Plan - The patient is a 68-year-old female presenting with complaints of chronic pain, swelling, and cold sensation in her legs. - Pain and swelling in the lower extremities; noticeable when sitting. Cold sensation in legs reported. - Pain management has included topical medication and OTC purchases. - Recent MRI ordered for further evaluation, for left pain through pain management [facility], pending insurance approval. - Insomnia complicates the chronic pain issue; patient reports lack of sleep medication. - Allergy symptoms management pending; insurance-related issues noted. - Swelling in legs; associated with climate changes. - Anxiety discussed; patient has prescription but not compliant with medication. Do not want to take it - GI disturbances mentioned; patient GERD and is taking PPI b.i.d. -allergies are stable. Problem List - Pain in the lower extremities - Anxiety - Chronic pain - Swelling in the legs - Cold sensation in the legs - Insomnia - Symptoms of allergy - Gastrointestinal disturbances/GERD - urine incontinence Patient Instructions - Apply prescribed topical medication as directed. - Continue medication for pain management as prescribed. - Follow instructions regarding MRI and mammogram appointments. - Ensure continuous supply of all prescribed medication by contacting pharmacy when the supply is low. - Note down medications in a preferred language, including purpose and supply details. - Take allergy medication as prescribed once obtained. - Follow dietary and fluid restrictions advised for swelling management if applicable. - Ensure safe sleep hygiene despite lack of sleep medication. Medications: Refilled acetaminophen (Tylenol Extra Strength) 500 mg PO TID 90 days PRN 240 tabs 0RF pain cetirizine 10 mg PO DAILY PRN 90 tabs 3RF allergy symptoms diclofenac sodium 1% (Arthritis Pain (diclofenac)) Apply to knee once a day 2 grams topical QID 30 days 100 grams 3RF triamcinolone acetonide 0.1% 1 appl topical DAILY 30 days 80 grams 0RF omeprazole 20 mg (2 x 10 mg) PO DAILY 180 caps 1RF Discontinued furosemide Discontinued Reason: Doctor's Order 20 mg PO Q OTHER DAY 90 days 45 tabs 0RF Swelling of feet ondansetron Discontinued Reason: Doctor's Order 4 mg PO Q8H 3 days PRN 9 tabs 0RF nausea and vomiting fluticasone propionate 50 mcg/actuation (Flonase Allergy Relief) administer into each nostril Discontinued Reason: Doctor's Order 1 spray intranasal DAILY 16 grams 0RF Nasal congestion escitalopram oxalate (Lexapro) Discontinued Reason: Doctor's Order 10 mg PO DAILY 90 tabs 3RF
== END 2024-05-16 10:13 | disposition home or self-care (01) ==
PROVIDERS: PCP Internal Medicine; Visit Provider Internal Medicine
DX: M15.9 Polyosteoarthritis, unspecified (principal); Z91.09 Other allergy status, other than to drugs and biological substances; R73.03 Prediabetes; E66.09 Other obesity due to excess calories; Z68.33 Body mass index [BMI] 33.0-33.9, adult; M79.89 Other specified soft tissue disorders; F33.41 Major depressive disorder, recurrent, in partial remission; G47.9 Sleep disorder, unspecified; E55.9 Vitamin D deficiency, unspecified; R10.13 Epigastric pain; N39.46 Mixed incontinence; Z68.34 Body mass index [BMI] 34.0-34.9, adult

== ENCOUNTER → 2024-05-16 08:27 | Outpatient (BNVA) | payer OTHER, SELFPAY | PROVIDERS: PCP Internal Medicine; Visit Provider Internal Medicine | DX: M15.9 Polyosteoarthritis, unspecified (principal); R73.03 Prediabetes; E66.09 Other obesity due to excess calories; Z68.33 Body mass index [BMI] 33.0-33.9, adult; M79.89 Other specified soft tissue disorders; F33.41 Major depressive disorder, recurrent, in partial remission; G47.9 Sleep disorder, unspecified; E59 Dietary selenium deficiency; R10.13 Epigastric pain; N39.46 Mixed incontinence | CPT/HCPCS: 96127; 99212 ==

== ENCOUNTER 2024-05-24 11:42 | Outpatient (REF) | payer OTHER, SELFPAY ==
--- NOTE | ~2024-05-24 | US_ITS ---
EXAMINATION: US DIAGNOSTIC ULTRASOUND BREAST, RIGHT CLINICAL INFORMATION: 6 month follow-up for solid mass versus complicated cyst in the right breast at 2:00 3 cm from the nipple.. COMPARISON: Comparison is made with relevant prior imaging. TECHNIQUE: Ultrasound of the breast is performed with real-time chow scale imaging and color Doppler. FINDINGS: Targeted color Doppler ultrasound demonstrates a hypoechoic oval solid mass versus complicated cyst at 2:00 3 cm from the nipple not significantly changed from prior ultrasound measuring 5 x 5 x 5 mm. No other sonographic abnormality is seen. Results are discussed with the patient at time of visit. US/US breast RT limited mamm only IMPRESSION: Solid mass versus complicated cyst at 2:00 3 cm from the nipple. Recommend 6 month follow-up ultrasound when the patient is due for bilateral mammography to demonstrate 1 year of stability. ASSESSMENT: BI-RADS 3: Probably Benign RECOMMENDATION: Diagnostic right breast ultrasound in 6 months. This patient's information was entered into a reminder system with a target due date for their next mammogram. Electronically signed by: Lynne Aguila DO 05/24/2024 02:02 PM SHANITA TELLO
== END 2024-05-24 11:43 | disposition home or self-care (01) ==
LOC: HO.MAMMO 11:42
PROVIDERS: PCP Internal Medicine; Visit Provider Internal Medicine
DX: N60.01 Solitary cyst of right breast (principal)
CPT/HCPCS: 76642

== ENCOUNTER → 2024-05-24 12:00 | Outpatient (BNV) | payer OTHER, SELFPAY | PROVIDERS: PCP Internal Medicine; Visit Provider Internal Medicine | DX: N64.89 Other specified disorders of breast (principal) | CPT/HCPCS: 76642 ==

== ENCOUNTER → 2024-05-25 11:06 | Outpatient (BNVA) | payer OTHER, SELFPAY | LOC: CF 12:28 | PROVIDERS: PCP Internal Medicine; Visit Provider Physician Assistant | DX: J22 Unspecified acute lower respiratory infection (principal) | CPT/HCPCS: 99212 ==

== ENCOUNTER 2024-05-26 09:25 | Outpatient (REF) | payer OTHER, SELFPAY ==
--- NOTE | ~2024-05-26 | XR_ITS ---
CLINICAL HISTORY: cough 2 view chest x-ray Comparison: None Findings: No consolidation or effusion. Heart size is normal. No acute fracture. IMPRESSION: 1. No acute findings. This document has been electronically signed by: Karly Butler MD on 05/26/2024 10:02:03
== END 2024-05-26 09:26 | disposition home or self-care (01) ==
LOC: HO.HMGCX 09:25
PROVIDERS: PCP Internal Medicine; Visit Provider Physician Assistant
DX: R05.9 Cough, unspecified (principal)
CPT/HCPCS: 71046

== ENCOUNTER → 2024-05-26 09:29 | Outpatient (BNV) | payer OTHER, SELFPAY | PROVIDERS: PCP Internal Medicine; Visit Provider Radiology Diagnostic Radiology | DX: R05.9 Cough, unspecified (principal) | CPT/HCPCS: 71046 ==

== ENCOUNTER 2024-06-06 08:27 | Outpatient (AMB) | payer OTHER, SELFPAY ==
[2024-06-06 08:32] VITALS: BP 132/68; PULSE 91; RESP 15; TEMP 36.9; O2SAT 98; BMI 35.9
--- NOTE | 2024-06-06 08:32 | MHC.PC.OV ---
Vital Signs 06/06/24 08:32 Height 5 ft 4 in Weight 209 lb 4 oz BMI 35.9 BP 132/68 Blood Pressure Location Rt brachial Position Sitting Respiration 15 Pulse 91 Pulse Source Pulse Oximeter Temp 98.4 F Temp Source Oral Pulse Oximetry (%) 98 Oxygen Delivery Method Room Air Intake Visit Reasons: 1 week f/up-missed apptm from 05/25 Allergies No Known Allergies Allergy (Verified 06/06/24 08:34) Medication List - Last Reconciled 06/06/24 by Keeley Dugan MD acetaminophen (Tylenol Extra Strength) 500 mg PO TID PRN 90 days cetirizine 10 mg PO DAILY PRN cholecalciferol (vitamin D3) 50 mcg PO DAILY 90 days cholecalciferol (vitamin D3) 25 mcg PO DAILY 90 days diclofenac sodium 1% (Arthritis Pain (diclofenac)) 2 grams topical QID 30 days diclofenac sodium 1% 4 grams topical QID gabapentin 300 mg PO BID omeprazole 20 mg (2 x 10 mg) PO DAILY solifenacin (Vesicare) 10 mg PO DAILY triamcinolone acetonide 0.1% 1 appl topical DAILY 30 days Tobacco use date assessed: 06/06/24 Fall risk assessment: No Falls in past year Last assessed Fall Risk: 06/06/24 Dental Screening Dental Screen Date: 06/06/24 Did you have a dental visit in the last 12 months?: No Did you have a dental problem in the last 6 months where you did not have access to dental care?: No Was dental information given to patient?: Patient declined HPI 1 week f/up-missed apptm from 05/25 HPI Details The patient is a 69-year-old female presenting with several ongoing health issues. - Leg Pain and Cold Sensation: The patient reports experiencing leg pain upon walking, along with a cold sensation. Gabapentin has been prescribed previously by face painter [facility] but patient never picked up the script refill sent, to address symptoms experienced at nighttime. - Gastrointestinal Symptoms: Reports burning sensations in the stomach, along with episodes of vomiting and nausea occurring sporadically when certain foods are consumed. The exact food triggers remain unspecified. - Allergy: Requesting refill on allergy medicine . - Recent Imaging: An X-ray was done to rule out pneumonia, and results confirmed no presence of pneumonia. - urine incontinence, refill sent for medication - osteoarthritis multiple joints, patient is on Tylenol - she is traveling to [facility] and requesting [facility] script which I have sent for Patient Instructions - Continue taking prescribed medications as instructed, including Tylenol for pain, Omeprazole for gastrointestinal symptoms, and Gabapentin at night for leg pain. - Monitor for any adverse reactions or side effects with new medications. - Be cautious when trying new foods that might trigger gastrointestinal symptoms; avoid known triggers if possible. - Keep track of any recurring or worsening symptoms and seek medical attention if necessary. Review of Systems - Respiratory: Reports persistent cough - Musculoskeletal: Reports leg pain and cold sensation in the legs - Gastrointestinal: Reports burning sensation in the stomach and episodes of vomiting with nausea General: No fever no chills neurological: No headaches no dizziness ear nose throat: No sore throat no hearing difficulty no ear pain cardiovascular: No syncope, no chest pain, no palpitations endocrine: No polyuria polydipsia no heat intolerance genitourinary: No dysuria skin: No new complaints Physical Exam general: No acute distress HEENT: No acute findings neck: Supple respiratory system: Cough present, no audible wheeze, no stridor cardiovascular: S1-S2 gastrointestinal: Burning sensation reported, no vomiting extremities: Legs feel cold CORRECTIVE THERAPY AIDE: Alert awake oriented x3 motor sensory intact skin: Normal turgor PFSH Medical History Visit for suture removal Surgical History H/O colonoscopy Social History Household Members: Spouse Housing: House Alcohol intake: current Alcohol intake frequency: does not drink Patient Tobacco Use Status: Never used Tobacco e-Cigarette/Vaping Use: Never Used Second Hand Smoke Exposure: No service: No Current occupational status: retired Cognitive needs: No Hearing needs: No Vision needs: No Questionnaire Thrive Questionnaire Date Thrive assessed: 05/16/24 AUDIT C Alcohol Use Questionnaire (AUDIT-C) 1. How often do you have a drink containing alcohol?: Never 3. How often do you have six or more drinks on one occasion?: Never Total Score: 0 Score Reviewed/Action Taken: Yes LANG-7 AMB Questionnaire LANG-7 Date LANG - 7 assessed: 05/16/24 Source: Developed by Adele Gaspar.W. Jr, Mario Vincent and colleagues, with an educational nba from [employer]. Physical exam (Primary Care) Vital Signs: Last Vital Signs Temp 98.4 F 06/06/24 08:32 Pulse 91 06/06/24 08:32 Resp 15 06/06/24 08:32 BP 132/68 06/06/24 08:32 Pulse Ox 98 06/06/24 08:32 Oxygen Delivery Method Room Air 06/06/24 08:32 BMI result Body Mass Index 35.9 Tobacco/Smoking Status: Tobacco use Status Tobacco use date assessed 06/06/24 06/06/24 08:35 Patient Tobacco Use Status Never used Tobacco 06/06/24 08:35 e-Cigarette/Vaping Use Never Used 06/06/24 08:35 Thrive Assessment: Date of Thrive Assessment Date Thrive assessed 05/16/24 06/06/24 08:35 Coding Level of Care Code Est Pt Level 4 (59766) Complex EM visit Add On G2211 Diagnoses Complex regional pain syndrome type 2 of left upper extremity G56.42 Complex regional pain syndrome type: type II (causalgia) Intrinsic eczema L20.84 Eczema type: intrinsic Environmental allergies Z91.09 Primary osteoarthritis involving multiple joints M15.9 Osteoarthritis type: primary Pre-diabetes R73.03 Class 1 obesity due to excess calories with serious comorbidity and body mass index (BMI) of 33.0 to 33.9 in adult E66.09; Z68.33 Obesity classification: adult class 1 (BMI 30 - 34.9) Serious obesity comorbidity presence: with serious comorbidity Body mass index: BMI 33.0-33.9 Mixed stress and urge urinary incontinence N39.46 Urinary Incontinence type: mixed stress and urge incontinence Dyspepsia R10.13 Chronic midline low back pain without sciatica M54.50; G89.29 Back pain location: low back pain Back pain laterality: midline Sciatica presence: without sciatica Allergies T78.40XA Assessment & Plan Assessment & Plan (1) Complex regional pain syndrome i of left upper limb: Code(s): G90.512 - Complex regional pain syndrome I of left upper limb Category: Medical Qualifiers: Complex regional pain syndrome type: type II (causalgia) Qualified Code(s): G56.42 - Causalgia of left upper limb (2) Eczema: Code(s): L30.9 - Dermatitis, unspecified Category: Medical Qualifiers: Eczema type: intrinsic Qualified Code(s): L20.84 - Intrinsic (allergic) eczema (3) Environmental allergies: Code(s): Z91.09 - Other allergy status, other than to drugs and biological substances Category: Medical (4) Osteoarthritis of multiple joints: Code(s): M15.9 - Polyosteoarthritis, unspecified Category: Medical Qualifiers: Osteoarthritis type: primary Qualified Code(s): M15.9 - Polyosteoarthritis, unspecified (5) Pre-diabetes: Code(s): R73.03 - Prediabetes Category: Medical (6) Obesity due to excess calories: Code(s): E66.09 - Other obesity due to excess calories Category: Medical Qualifiers: Obesity classification: adult class 1 (BMI 30 - 34.9) Serious obesity comorbidity presence: with serious comorbidity Body mass index: BMI 33.0-33.9 Qualified Code(s): E66.09 - Other obesity due to excess calories; Z68.33 - Body mass index [BMI] 33.0-33.9, adult (7) Incontinence of urine: Code(s): R32 - Unspecified urinary incontinence Category: Medical Qualifiers: Urinary Incontinence type: mixed stress and urge incontinence Qualified Code(s): N39.46 - Mixed incontinence (8) Dyspepsia: Code(s): R10.13 - Epigastric pain Category: Medical (9) Back pain, chronic: Code(s): M54.9 - Dorsalgia, unspecified; G89.29 - Other chronic pain Category: Medical Qualifiers: Back pain location: low back pain Back pain laterality: midline Sciatica presence: without sciatica Qualified Code(s): M54.50 - Low back pain, unspecified; G89.29 - Other chronic pain (10) Allergies: Code(s): T78.40XA - Allergy, unspecified, initial encounter Category: Medical Plan The patient is a 69-year-old female presenting with several ongoing health issues. - Leg Pain and Cold Sensation: The patient reports experiencing leg pain upon walking, along with a cold sensation. Gabapentin has been prescribed previously by face painter [facility] but patient never picked up the script refill sent, to address symptoms experienced at nighttime. - Gastrointestinal Symptoms: Reports burning sensations in the stomach, along with episodes of vomiting and nausea occurring sporadically when certain foods are consumed. The exact food triggers remain unspecified. - Allergy: Requesting refill on allergy medicine . - Recent Imaging: An X-ray was done to rule out pneumonia, and results confirmed no presence of pneumonia. - urine incontinence, refill sent for medication - osteoarthritis multiple joints, patient is on Tylenol - she is traveling to [facility] and requesting [facility] script which I have sent for Patient Instructions - Continue taking prescribed medications as instructed, including Tylenol for pain, Omeprazole for gastrointestinal symptoms, and Gabapentin at night for leg pain. - Monitor for any adverse reactions or side effects with new medications. - Be cautious when trying new foods that might trigger gastrointestinal symptoms; avoid known triggers if possible. - Keep track of any recurring or worsening symptoms and seek medical attention if necessary. Medications: New ondansetron HCl 4 mg PO Q8H 7 days PRN 14 tabs 0RF nausea and vomiting R11.0 - Nausea Changed From gabapentin 300 mg PO BID 60 caps 0RF To gabapentin 300 mg PO .qhs 30 caps 0RF Refilled omeprazole 20 mg (2 x 10 mg) PO DAILY 180 caps 1RF solifenacin (Vesicare) 10 mg PO DAILY 90 tabs 0RF acetaminophen (Tylenol Extra Strength) 500 mg PO TID 90 days PRN 240 tabs 0RF pain cetirizine 10 mg PO DAILY PRN 90 tabs 3RF allergy symptoms diclofenac sodium 1% (Arthritis Pain (diclofenac)) Apply to knee once a day 2 grams topical QID 30 days 100 grams 3RF
== END 2024-06-06 10:13 | disposition home or self-care (01) ==
PROVIDERS: PCP Internal Medicine; Visit Provider Internal Medicine
DX: R73.03 Prediabetes (principal); G56.42 Causalgia of left upper limb; L20.84 Intrinsic (allergic) eczema; Z91.09 Other allergy status, other than to drugs and biological substances; M15.9 Polyosteoarthritis, unspecified; E66.09 Other obesity due to excess calories; Z68.33 Body mass index [BMI] 33.0-33.9, adult; N39.46 Mixed incontinence; R10.13 Epigastric pain; M54.50 Low back pain, unspecified; G89.29 Other chronic pain; T78.40XA Allergy, unspecified, initial encounter

== ENCOUNTER → 2024-06-06 08:27 | Outpatient (BNVA) | payer OTHER, SELFPAY | PROVIDERS: PCP Internal Medicine; Visit Provider Internal Medicine | DX: G56.42 Causalgia of left upper limb (principal); L20.84 Intrinsic (allergic) eczema; M15.9 Polyosteoarthritis, unspecified; R73.03 Prediabetes; N39.46 Mixed incontinence; R10.13 Epigastric pain; M54.50 Low back pain, unspecified; T78.40XA Allergy, unspecified, initial encounter; Z91.09 Other allergy status, other than to drugs and biological substances | CPT/HCPCS: 99212 ==

== ENCOUNTER 2024-06-16 10:21 | Outpatient (REF) | payer OTHER, SELFPAY | END 2024-06-16 10:22 | disposition home or self-care (01) | LOC: HO.MRI 10:21 | PROVIDERS: PCP Internal Medicine; Visit Provider Internal Medicine | DX: M25.532 Pain in left wrist (principal) | CPT/HCPCS: 73221 ==

== ENCOUNTER → 2024-06-16 10:47 | Outpatient (BNV) | payer OTHER, SELFPAY | PROVIDERS: PCP Internal Medicine; Visit Provider Radiology Diagnostic Radiology | DX: M25.532 Pain in left wrist (principal); S56.512A Strain of other extensor muscle, fascia and tendon at forearm level, left arm, initial encounter; M65.4 Radial styloid tenosynovitis [de Quervain] | CPT/HCPCS: 73221 ==

== ENCOUNTER 2024-08-17 09:22 | Outpatient (AMB) | payer OTHER, SELFPAY ==
[2024-08-17 09:53] VITALS: BP 108/74; PULSE 88; TEMP 36.9; O2SAT 99; BMI 34.4
--- NOTE | 2024-08-17 09:53 | A.OFFPC_ITS ---
Vital Signs 08/17/24 09:53 Height 5 ft 4 in Weight 200 lb 6 oz BMI 34.4 BP 108/74 Blood Pressure Location Rt brachial Position Sitting Pulse 88 Pulse Source Pulse Oximeter Temp 98.5 F Temp Source Oral Pulse Oximetry (%) 99 Oxygen Delivery Method Room Air Intake Visit Reasons: pain in wrist/joint pain Allergies No Known Allergies Allergy (Verified 08/17/24 09:54) Medication List - Last Reconciled 08/17/24 by Keeley Dugan MD acetaminophen (Tylenol Extra Strength) 500 mg PO TID PRN 90 days cetirizine 10 mg PO DAILY PRN cholecalciferol (vitamin D3) 50 mcg PO DAILY 90 days cholecalciferol (vitamin D3) 25 mcg PO DAILY 90 days diclofenac sodium 1% 4 grams topical QID diclofenac sodium 1% (Arthritis Pain (diclofenac)) 2 grams topical QID 30 days gabapentin 300 mg PO .qhs omeprazole 20 mg (2 x 10 mg) PO DAILY ondansetron HCl 4 mg PO Q8H PRN 7 days solifenacin (Vesicare) 10 mg PO DAILY triamcinolone acetonide 0.1% 1 appl topical DAILY 30 days Tobacco use date assessed: 08/17/24 Fall risk assessment: No Falls in past year Last assessed Fall Risk: 08/17/24 Dental Screening Dental Screen Date: 08/17/24 Did you have a dental visit in the last 12 months?: Yes Did you have a dental problem in the last 6 months where you did not have access to dental care?: No Was dental information given to patient?: Patient has dentist HPI pain in wrist/joint pain HPI Details History - The patient is a 69-year-old female pr esenting with bilateral knee and bilateral heel pain. Which is an ongoing problem for the patient - The patient has history of travel to [facility] recently, which the patient associates with overall physical discomfort. - The patient expresses concerns about i tchiness related to her allergies, particularly during the spring season. - The patient mentions her eyes are very dry due to allergies currently affecting her as it is springtime. Medications - Tylenol for headache and pain relief Problem List Osteoarthritis multiple joints Patient Instructions - Continue to use Tylenol for pain manag ement. - Consider changing shoes to alleviate h eel pain and wear joggers for comfort. - Follow up with a foot doctor if heel p ain persists. - start physical therapy for knee pain Review of Systems General: No fever no chills neurological: No headaches no dizziness ear nose throat: No sore throat no hearing difficulty no ear pain cardiovascular: No syncope, no chest pain, no palpitations gastrointestinal: No nausea vomiting or diarrhea Physical Exam general: No acute distress HEENT: No acute findings neck: Supple respiratory system: Able to talk in full sentences, no audible wheeze no stridor cardiovascular: S1-S2 RRR gastrointestinal: No pain extremities: Pain in both knees and heels subjective, all joints mobile no swelling noted CITY AUDITOR: Alert awake oriented x3 motor sensory intact skin: Normal turgor PFSH Medical History Visit for suture removal Surgical History H/O colonoscopy Social History Household Members: Spouse Housing: House Alcohol intake: current Alcohol intake frequency: does not drink Patient Tobacco Use Status: Never used Tobacco e-Cigarette/Vaping Use: Never Used Second Hand Smoke Exposure: No service: No Current occupational status: retired Cognitive needs: No Hearing needs: No Vision needs: No Questionnaire Thrive Questionnaire Date Thrive assessed: 05/16/24 LANG-7 AMB Questionnaire LANG-7 Date LANG - 7 assessed: 05/16/24 Source: Developed by Drs. Yusuf Bliss, Adele Norris, Mario Vincent and colleagues, with an educational nba from [employer]. Physical exam (Primary Care) Vital Signs: Last Vital Signs Temp 98.5 F 08/17/24 09:53 Pulse 88 08/17/24 09:53 BP 108/74 08/17/24 09:53 Pulse Ox 99 08/17/24 09:53 Oxygen Delivery Method Room Air 08/17/24 09:53 BMI result Body Mass Index 34.4 Tobacco/Smoking Status: Tobacco use Status Tobacco use date assessed 08/17/24 08/17/24 09:55 Patient Tobacco Use Status Never used Tobacco 08/17/24 09:55 e-Cigarette/Vaping Use Never Used 08/17/24 09:55 Thrive Assessment: Date of Thrive Assessment Date Thrive assessed 05/16/24 08/17/24 09:55 Coding Level of Care Code Est Pt Level 3 (12383) Diagnoses Chronic pain of both knees M25.561; M25.562; G89.29 Chronicity: chronic Bilateral foot pain M79.671; M79.672 Environmental allergies Z91.09 Assessment & Plan Assessment & Plan (1) Bilateral knee pain: Code(s): M25.561 - Pain in right knee; M25.562 - Pain in left knee Category: Medical Qualifiers: Chronicity: chronic Qualified Code(s): M25.561 - Pain in right knee; M25.562 - Pain in left knee; G89.29 - Other chronic pain (2) Bilateral foot pain: Code(s): M79.671 - Pain in right foot; M79.672 - Pain in left foot Category: Medical (3) Environmental allergies: Code(s): Z91.09 - Other allergy status, other than to drugs and biological substances Category: Medical Plan History - The patient is a 69-year-old female presenting with bilateral knee and bilateral heel pain. Which is an ongoing problem for the patient - The patient has history of travel to [place] recently, which the patient associates with overall physical discomfort. - The patient expresses concerns about itchiness related to her allergies, particularly during the spring season. - The patient mentions her eyes are very dry due to allergies currently affecting her as it is springtime. Medications - Tylenol for headache and pain relief Problem List Osteoarthritis multiple joints Patient Instructions - Continue to use Tylenol for pain management. - Consider changing shoes to alleviate heel pain and wear joggers for comfort. - Follow up with a foot doctor if heel pain persists. - start physical therapy for knee pain Orders: Orders PT Evaluation and Treatment Today M25.561 - Pain in right knee, M25.562 - Pain in left knee
== END 2024-08-17 10:10 | disposition home or self-care (01) ==
LOC: HO.HMCC 09:22
PROVIDERS: PCP Internal Medicine; Visit Provider Internal Medicine
DX: M25.561 Pain in right knee (principal); M25.562 Pain in left knee; G89.29 Other chronic pain; M79.671 Pain in right foot; M79.672 Pain in left foot; Z91.09 Other allergy status, other than to drugs and biological substances

== ENCOUNTER → 2024-08-17 09:22 | Outpatient (BNVA) | payer OTHER, SELFPAY | PROVIDERS: PCP Internal Medicine; Visit Provider Internal Medicine | DX: M25.561 Pain in right knee (principal); M25.562 Pain in left knee; M79.672 Pain in left foot; M79.671 Pain in right foot; G89.29 Other chronic pain; Z91.09 Other allergy status, other than to drugs and biological substances | CPT/HCPCS: 99212 ==

== ENCOUNTER 2024-10-03 15:00 | Outpatient (RCR) | payer OTHER, SELFPAY ==
--- NOTE | 2024-08-31 07:35 | MHC.PT.EP ---
[facility] [place] Office [place] Office [place] Office [address] Isabella Win [address] [phone] F: [phone] F: [phone] F: [phone] F: [phone] Physical Therapy Plan of Care Date of Evaluation: 08/31/24 Date of Surgery: n/a Diagnosis: B knee pain Assessment: Patient is a 69 year old female presenting to PT with complaints of pain in her B knees. Pt reports onset of pain began a long time ago due to insidious onset due to arthritis. She presents today with impairments in pain, ROM, knee strength, hip strength. Pt's current occupation is none, with baseline physical activities including ambulating, stair negotiation, ADLs. Pt expresses long-term goal of reducing pain, and is motivated to work towards this in PT. Clinical presentation today is most consistent with signs and sx associated with B knee pain and pt will benefit from skilled PT 2 week x 4 weeks to address the following problems and impairments noted upon evaluation: pain, ROM, knee strength, hip strength. These problems limit the patient with the following functional activities: ambulating, stair negotiation, ADLs. The prescribed treatment plan of care is medically necessary. Co-morbidities of none were identified and taken into considerations of plan of care. Pt was educated on HEP, role of PT, prognosis, POC. Frequency and Duration: The patient will be seen 2 x week x 4 weeks Short Term Goals: Pt will demonstrate knee AROM B in available range with min to no pain in 2 weeks. Pt will demonstrate improved knee MMT strength by 1/3 grade in 2 weeks. Pt will demonstrate improved hip MMT strength by 1/3 grade in 2 weeks. Fpc Goals: Pt will demonstrate improved LEFI score by 9 points in 4 weeks for improved functional mobility. Pt will demonstrate ability to ambulate with min to no pain in 4 weeks for return to PLOF. Pt will demonstrate ability to negotiate stairs with min to no pain in 4 weeks for return to PLOF. Treatment Plan: Modalities to reduce pain, spasms and effusion. Manual therapy to restore motion and function. Therapeutic exercise to improve strength and flexibility. Neuromuscular re-education for posture and balance. Therapeutic activities to return to functional activities of daily living. Electronically signed by: Amira Lou, PT, DPT, ATC Please sign and return to therapist. Thank you for your referral.
--- NOTE | 2024-10-03 16:05 | MHC.PT.DC ---
[facility] [place] [facility] [place] Office [address] Isabella Win [address] [facility] [phone] F: [phone] F: [phone] F: [phone] F: [phone] Physical Therapy Discharge Report Diagnosis: B knee pain Date of Surgery: n/a Date of Evaluation: 08/31/24 Date of Discharge: 10/03/24 Treatments to Date: 8 Cancellations to Date: 1 No Shows to Date: 1 Discharge Status: Independent with HEP Recommend MD Follow-up Discharge Summary: 10/03/2024: Pt continues to have ongoing pain in her knees as well as various other locations in her body. Despite this she is able to complete all her exercises. She does have advanced OA which likely explains the continued pain in her knees. At this time max benefits of PT have been provided and skilled PT is no longer indicated. Recommend continuing with HEP at home as tolerated and if pain continues to limit her then she should follow up with MD. Electronically signed by: Amira Lou, PT, DPT, ATC Please sign and return to therapist. Thank you for your referral.
== END 2024-10-03 16:05 | disposition home or self-care (01) ==
LOC: HO.PTCHIC 15:00
PROVIDERS: PCP Internal Medicine; Visit Provider Internal Medicine
DX: M25.561 Pain in right knee (principal); M25.562 Pain in left knee
CPT/HCPCS: 97110; 97161

== ENCOUNTER 2024-11-01 08:45 | Outpatient (AMB) | payer OTHER, SELFPAY ==
--- NOTE | 2024-11-01 10:35 | A.OFFPC_ITS ---
Intake Visit Reasons: medication follow up, hand pain Allergies No Known Allergies Allergy (Verified 08/17/24 09:54) Medication List - Last Reconciled 11/01/24 by Keeley Dugan MD acetaminophen (Tylenol Extra Strength) 500 mg PO TID PRN 90 days cetirizine 10 mg PO DAILY PRN cholecalciferol (vitamin D3) 50 mcg PO DAILY 90 days cholecalciferol (vitamin D3) 25 mcg PO DAILY 90 days diclofenac sodium 1% 4 grams topical QID diclofenac sodium 1% (Arthritis Pain (diclofenac)) 2 grams topical QID 30 days gabapentin 300 mg PO .qhs omeprazole 20 mg (2 x 10 mg) PO DAILY ondansetron HCl 4 mg PO Q8H PRN 7 days solifenacin (Vesicare) 10 mg PO DAILY triamcinolone acetonide 0.1% 1 appl topical DAILY 30 days Tobacco use date assessed: 08/17/24 Dental Screening Dental Screen Date: 08/17/24 HPI medication follow up, hand pain HPI Details History - The patient is a 69-year-old female pr esenting with stiffness and cold sensation in the legs. and pain in her feet and knees, patient suffers from OA and neuropathy lower ext - Reports that when sitting on a chair, her legs feel as if they are stuck in ice, specifically from the knees downward. - Has attempted home treatment by chavez el in salt water, which did not result in any improvement. - Secondarily, reports a persistent bitt er taste in the mouth. - Believes that medication may be contri buting to this symptom. Medications: - Tylenol for pain management Problem List - Peripheral neuropathy symptoms (leg se nsation issues) - Dysgeusia (bitter taste in mouth) - OA knees Patient Instructions - Continue taking prescribed medications as previously discussed. refil sent - Naproxen added only to be taken if nee ded for ever pain - Monitor any changes in symptoms, inclu ding the sensation in legs and bitter taste. Review of Systems - General: No fever no chills - Neurological: No headaches no dizziness - Ear nose throat: No sore throat no hearing difficulty no ear pain - Cardiovascular: No syncope, no chest pain, no palpitations - Gastrointestinal: No nausea vomiting or diarrhea [facility] Medical History Visit for suture removal Surgical History H/O colonoscopy Social History Household Members: Spouse Housing: House Alcohol intake: current Alcohol intake frequency: does not drink Patient Tobacco Use Status: Never used Tobacco e-Cigarette/Vaping Use: Never Used Second Hand Smoke Exposure: No service: No Current occupational status: retired Cognitive needs: No Hearing needs: No Vision needs: No Questionnaire Thrive Questionnaire Date Thrive assessed: 05/16/24 LANG-7 AMB Questionnaire LANG-7 Date LANG - 7 assessed: 05/16/24 Source: Developed by Drs. Yusuf Bliss, Adele Norris, Mario Vincent and colleagues, with an educational nba from [employer]. Physical exam (Primary Care) Tobacco/Smoking Status: Tobacco use Status Tobacco use date assessed 08/17/24 10/31/24 08:15 Patient Tobacco Use Status Never used Tobacco 10/31/24 08:15 e-Cigarette/Vaping Use Never Used 10/31/24 08:15 Thrive Assessment: Date of Thrive Assessment Date Thrive assessed 05/16/24 10/31/24 08:15 Telehealth Telehealth Telehealth Platform: [facility] Location of provider rendering services: practice address Location of patient: address on file Patient Identification confirmed using: Name, : Yes Telehealth method: voice only Patient verbally consented to treatment: Yes Patient verbally consented to billing insurance company: Yes Patient informed of any privacy concerns related to visit: Yes Minutes spent on Phone/Video with Pt.: 13 Coding Level of Care Code Tele Est Pt Level 3 (15003) Diagnoses Chronic pain of both knees M25.561; M25.562; G89.29 Chronicity: chronic Bilateral foot pain M79.671; M79.672 Peripheral polyneuropathy G62.9 Peripheral neuropathy type: polyneuropathy, unspecified Assessment & Plan Assessment & Plan (1) Bilateral knee pain: Code(s): M25.561 - Pain in right knee; M25.562 - Pain in left knee Category: Medical Qualifiers: Chronicity: chronic Qualified Code(s): M25.561 - Pain in right knee; M25.562 - Pain in left knee; G89.29 - Other chronic pain (2) Bilateral foot pain: Code(s): M79.671 - Pain in right foot; M79.672 - Pain in left foot Category: Medical (3) Peripheral neuropathy: Code(s): G62.9 - Polyneuropathy, unspecified Category: Medical Qualifiers: Peripheral neuropathy type: polyneuropathy, unspecified Qualified Code(s): G62.9 - Polyneuropathy, unspecified Plan History - The patient is a 69-year-old female presenting with stiffness and cold sensation in the legs. and pain in her feet and knees, patient suffers from OA and neuropathy lower ext - Reports that when sitting on a chair, her legs feel as if they are stuck in ice, specifically from the knees downward. - Has attempted home treatment by soaking in salt water, which did not result in any improvement. - Secondarily, reports a persistent bitter taste in the mouth. - Believes that medication may be contributing to this symptom. Medications: - Tylenol for pain management Problem List - Peripheral neuropathy symptoms (leg sensation issues) - Dysgeusia (bitter taste in mouth) - OA knees Patient Instructions - Continue taking prescribed medications as previously discussed. refil sent - Naproxen added only to be taken if needed for ever pain - Monitor any changes in symptoms, including the sensation in legs and bitter taste. Medications: New naproxen take with food only if needed for sever pain in feet or knees 500 mg PO BID PRN 60 tabs 0RF pain in feet 30 days Refilled cholecalciferol (vitamin D3) 25 mcg PO DAILY 90 tabs 1RF 90 days triamcinolone acetonide 0.1% 1 appl topical DAILY 80 grams 5RF 30 days diclofenac sodium 1% (Arthritis Pain (diclofenac)) Apply to knee once a day 2 grams topical QID 100 grams 3RF 30 days
== END 2024-11-01 10:38 | disposition home or self-care (01) ==
LOC: HO.HMCC 08:45
PROVIDERS: PCP Internal Medicine; Visit Provider Internal Medicine
DX: M25.561 Pain in right knee (principal); M25.562 Pain in left knee; G89.29 Other chronic pain; M79.671 Pain in right foot; M79.672 Pain in left foot; G62.9 Polyneuropathy, unspecified

== ENCOUNTER 2024-12-18 14:28 | Outpatient (AMB) | payer OTHER, SELFPAY ==
[2024-12-18 14:31] VITALS: BP 130/82; PULSE 85; O2SAT 98; BMI 33.6
--- NOTE | 2024-12-18 14:31 | A.OFFPC_ITS ---
Vital Signs 12/18/24 14:31 Height 5 ft 4 in Weight 196 lb BMI 33.6 BP 130/82 Blood Pressure Location Lt brachial Position Sitting Pulse 85 Pulse Source Pulse Oximeter Pulse Oximetry (%) 98 Intake Visit Reasons: pain in body Allergies No Known Allergies Allergy (Verified 12/18/24 14:32) Medication List - Last Reconciled 12/18/24 by Keeley Dugan MD acetaminophen (Tylenol Extra Strength) 500 mg PO TID PRN 90 days cetirizine 10 mg PO DAILY PRN cholecalciferol (vitamin D3) 25 mcg PO DAILY 90 days diclofenac sodium 1% (Arthritis Pain (diclofenac)) 2 grams topical QID 30 days gabapentin 300 mg PO .qhs naproxen 500 mg PO BID PRN 30 days omeprazole 20 mg (2 x 10 mg) PO DAILY ondansetron HCl 4 mg PO Q8H PRN 7 days solifenacin (Vesicare) 10 mg PO DAILY triamcinolone acetonide 0.1% 1 appl topical DAILY 30 days Tobacco use date assessed: 08/17/24 Fall risk assessment: No Falls in past year Last assessed Fall Risk: 12/18/24 Dental Screening Dental Screen Date: 08/17/24 HPI pain in body HPI Details Chief Complaint The patient reports burning pain in both feet, accompanied by leg pain. History of Present Illness The patient is a 69-year-old female presenting with neuropathic pain. Neuropathic pain: - Reports burning sensation in both feet and severe leg pain. - Symptoms have been persistent, severel y impacting mobility and quality of life. - Experiences sensation of coldness ( fe els like there's ice on my feet ). - Symptoms are exacerbated by physical a ctivity; however, patient avoids activity due to pain. - Reports the electric sensation in the legs and frequent numbness. - No prior consultations with a podiatri st. - Pain described as burning, which diffe rs in quality from typical pain. Left wrist pain: - patient has seen smart energy specialist and had MRI wrist done which showed - 1. Small interstitial tear of extensor carpi ulnaris. 2. Extensor pollicis brevis and longus t endinopathy. 3. Partial tear lunotriquetral ligament. The lunate marrow edema and subcortical cystic changes may be related. Patient does not want to have any kind of surgery or needles She is declining to have a follow-up appointment Tells me that she is feeling little better Medications: - Gabapentin (for neuropathic pain) - Naproxen (as needed for pain relief) - Tylenol (for pain management) - VESIcare for urine incontinence - diclofenac rub - Vitamin D (details not specified) - Medication for stomach issues (omepraz ole) - Tylenol for arthritic pain Social History: - Lives with , with support from her daughter and previously her younger sister. - Difficulty with basic self-care tasks due to neuropathic symptoms; relies on assistance. 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 Problem List - Neuropathy both lower extremity - Pain in feet - Achilles tendinitis bilateral - Require ongoing pain management - chronic GERD - urine incontinence - obesity - right wrist tendinopathy Patient Instructions - Take medications as prescribed, includ ing gabapentin daily. - Use massage ointment on affected areas . - Attend scheduled physical therapy appo intments for pain management over Achilles tendons. - Ensure completion of prescribed EMG ne rve conduction study in-hospital. - we will initiate PCS service - try to lose weight Review of Systems - General: No fever no chills - Neurological: No headaches no dizziness - Ear nose throat: No sore throat no hearing difficulty no ear pain - Cardiovascular: No syncope, no chest pain, no palpitations - Gastrointestinal: No nausea vomiting or diarrhea Physical Exam General: No acute distress HEENT: No acute findings Neck: Supple, but patient reports itching Respiratory system: Able to talk in full sentences, no audible wheeze Cardiovascular: S1-S2 regular in rate and rhythm Gastrointestinal: No pain, Extremities: Severe pain in both feet over Achilles tendon with palpation, burning sensation reported EDUCATION AND DEVELOPMENT MANAGER: Alert awake oriented x3 motor intact Skin: Normal turgor, tenderness with palpation over left wrist close to them [facility], [facility] Medical History Visit for suture removal Surgical History H/O colonoscopy Social History Household Members: Spouse Housing: House Alcohol intake: current Alcohol intake frequency: does not drink Patient Tobacco Use Status: Never used Tobacco e-Cigarette/Vaping Use: Never Used Second Hand Smoke Exposure: No service: No Current occupational status: retired Cognitive needs: No Hearing needs: No Vision needs: No Questionnaire Thrive Questionnaire Date Thrive assessed: 05/16/24 LANG-7 AMB Questionnaire LANG-7 Date LANG - 7 assessed: 05/16/24 Source: Developed by Drs. Yusuf Bliss, Adele Norris, Mario Vincent and colleagues, with an educational nba from [employer]. Physical exam (Primary Care) Vital Signs: Last Vital Signs Pulse 85 12/18/24 14:31 BP 130/82 12/18/24 14:31 Pulse Ox 98 12/18/24 14:31 BMI result Body Mass Index 33.6 Tobacco/Smoking Status: Tobacco use Status Tobacco use date assessed 08/17/24 12/18/24 14:33 Patient Tobacco Use Status Never used Tobacco 12/18/24 14:33 e-Cigarette/Vaping Use Never Used 12/18/24 14:33 Thrive Assessment: Date of Thrive Assessment Date Thrive assessed 05/16/24 12/18/24 14:33 Coding Level of Care Code Est Pt Level 5 (33512) Diagnoses Paresthesia of both feet R20.2 Achilles tendinitis of both lower extremities M76.61; M76.62 Primary osteoarthritis involving multiple joints M15.9 Osteoarthritis type: primary Dyspepsia R10.13 Intrinsic eczema L20.84 Eczema type: intrinsic Mixed stress and urge urinary incontinence N39.46 Urinary Incontinence type: mixed stress and urge incontinence Environmental allergies Z91.09 Pre-diabetes R73.03 Class 1 obesity due to excess calories with serious comorbidity and body mass index (BMI) of 33.0 to 33.9 in adult E66.09; Z68.33 Body mass index: BMI 33.0-33.9 Obesity classification: adult class 1 (BMI 30 - 34.9) Serious obesity comorbidity presence: with serious comorbidity Time Spent (min) 40 Comment [id number], reviewing chart/labs/explanation discussion/coordination Assessment & Plan Assessment & Plan (1) Paresthesia of both feet: Code(s): R20.2 - Paresthesia of skin Category: Medical (2) Achilles tendinitis of both lower extremities: Code(s): M76.61 - Achilles tendinitis, right leg; M76.62 - Achilles tendinitis, left leg Category: Medical (3) Osteoarthritis of multiple joints: Code(s): M15.9 - Polyosteoarthritis, unspecified Category: Medical Qualifiers: Osteoarthritis type: primary Qualified Code(s): M15.9 - Polyosteoarthritis, unspecified (4) Dyspepsia: Code(s): R10.13 - Epigastric pain Category: Medical (5) Eczema: Code(s): L30.9 - Dermatitis, unspecified Category: Medical Qualifiers: Eczema type: intrinsic Qualified Code(s): L20.84 - Intrinsic (allergic) eczema (6) Incontinence of urine: Code(s): R32 - Unspecified urinary incontinence Category: Medical Qualifiers: Urinary Incontinence type: mixed stress and urge incontinence Qualified Code(s): N39.46 - Mixed incontinence (7) Environmental allergies: Code(s): Z91.09 - Other allergy status, other than to drugs and biological substances Category: Medical (8) Pre-diabetes: Code(s): R73.03 - Prediabetes Category: Medical (9) Obesity due to excess calories: Code(s): E66.09 - Other obesity due to excess calories Category: Medical Qualifiers: Body mass index: BMI 33.0-33.9 Obesity classification: adult class 1 (BMI 30 - 34.9) Serious obesity comorbidity presence: with serious comorbidity Qualified Code(s): E66.09 - Other obesity due to excess calories; Z68.33 - Body mass index [BMI] 33.0-33.9, adult Plan Chief Complaint The patient reports burning pain in both feet, accompanied by leg pain. History of Present Illness The patient is a 69-year-old female presenting with neuropathic pain. Neuropathic pain: - Reports burning sensation in both feet and severe leg pain. - Symptoms have been persistent, severely impacting mobility and quality of life. - Experiences sensation of coldness ( feels like there's ice on my feet ). - Symptoms are exacerbated by physical activity; however, patient avoids activity due to pain. - Reports the electric sensation in the legs and frequent numbness. - No prior consultations with a research program intern. - Pain described as burning, which differs in quality from typical pain. Left wrist pain: - patient has seen smart energy specialist and had MRI wrist done which showed - 1. Small interstitial tear of extensor carpi ulnaris. 2. Extensor pollicis brevis and longus tendinopathy. 3. Partial tear lunotriquetral ligament. The lunate marrow edema and subcortical cystic changes may be related. Patient does not want to have any kind of surgery or needles She is declining to have a follow-up appointment Tells me that she is feeling little better Medications: - Gabapentin (for neuropathic pain) - Naproxen (as needed for pain relief) - Tylenol (for pain management) - VESIcare for urine incontinence - diclofenac rub - Vitamin D (details not specified) - Medication for stomach issues (omeprazole) - Tylenol for arthritic pain Social History: - Lives with , with support from her daughter and previously her younger sister. - Difficulty with basic self-care tasks due to neuropathic symptoms; relies on assistance. - Experiences barriers to mobility; requesting METAL DRILL PRESS OPERATOR services , ordered. Problem List - Neuropathy both lower extremity - Pain in feet - Achilles tendinitis bilateral - Require ongoing pain management - chronic GERD - urine incontinence - obesity - right wrist tendinopathy Patient Instructions - Take medications as prescribed, including gabapentin daily. - Use massage ointment on affected areas. - Attend scheduled physical therapy appointments for pain management over Achilles tendons. - Ensure completion of prescribed EMG nerve conduction study in-hospital. - we will initiate PCS service - try to lose weight Orders: Orders NE nerve conduction velocity Today R20.2 - Paresthesia of skin PT Evaluation and Treatment Today M76.61 - Achilles tendinitis, right leg, M76.62 - Achilles tendinitis, left leg NE electromyogram (EMG) Today R20.2 - Paresthesia of skin Medications: Refilled diclofenac sodium 1% (Arthritis Pain (diclofenac)) Apply to knee once a day 2 grams topical QID 100 grams 3RF 30 days cholecalciferol (vitamin D3) 25 mcg PO DAILY 90 tabs 1RF 90 days omeprazole 20 mg (2 x 10 mg) PO DAILY 180 caps 1RF naproxen take with food only if needed for sever pain in feet or knees 500 mg PO BID PRN 60 tabs 0RF pain in feet 30 days gabapentin 300 mg PO .qhs 90 caps 0RF triamcinolone acetonide 0.1% 1 appl topical DAILY 80 grams 5RF 30 days solifenacin (Vesicare) 10 mg PO DAILY 90 tabs 0RF acetaminophen (Tylenol Extra Strength) 500 mg PO TID PRN 240 tabs 0RF pain 90 days
== END 2024-12-18 15:06 | disposition home or self-care (01) ==
LOC: HO.HMCC 14:29
PROVIDERS: PCP Internal Medicine; Visit Provider Internal Medicine
DX: R20.2 Paresthesia of skin (principal); M76.61 Achilles tendinitis, right leg; E66.09 Other obesity due to excess calories; Z68.33 Body mass index [BMI] 33.0-33.9, adult; M76.62 Achilles tendinitis, left leg; M15.9 Polyosteoarthritis, unspecified; R10.13 Epigastric pain; L20.84 Intrinsic (allergic) eczema; N39.46 Mixed incontinence; Z91.09 Other allergy status, other than to drugs and biological substances; R73.03 Prediabetes

== ENCOUNTER → 2024-12-18 14:28 | Outpatient (BNVA) | payer OTHER, SELFPAY | PROVIDERS: PCP Internal Medicine; Visit Provider Internal Medicine | DX: R20.2 Paresthesia of skin (principal); M76.61 Achilles tendinitis, right leg; M76.62 Achilles tendinitis, left leg; M15.9 Polyosteoarthritis, unspecified; R10.13 Epigastric pain; L20.84 Intrinsic (allergic) eczema; N39.46 Mixed incontinence; R73.03 Prediabetes; E66.09 Other obesity due to excess calories; E66.811 Obesity, class 1; Z68.33 Body mass index [BMI] 33.0-33.9, adult; Z91.09 Other allergy status, other than to drugs and biological substances | CPT/HCPCS: 99212 ==

== ENCOUNTER 2025-01-29 11:14 | Outpatient (REF) | payer OTHER, SELFPAY ==
--- NOTE | 2025-01-29 11:53 | EMG_ITS ---
Chief complaint: Numbness, pain and cold Reason for referral: Numbness Referred by:?Keeley Dugan MD Procedure done: Bilateral lower extremities Description: Bilateral tibial and peroneal motor studies were performed bilateral superficial peroneal, sural, and median and lateral mixed plantars sensory studies were performed tibial H reflexes were obtained and EMG needle examination was performed. Median and lateral mixed plantars sensory amplitudes were diminished with normal distal latencies and conduction velocities. Otherwise no significant abnormality was noted on this test. 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 Otherwise no significant abnormality noted. MTDD
== END 2025-01-29 11:15 | disposition home or self-care (01) ==
LOC: HO.NEURO 11:14
PROVIDERS: PCP Internal Medicine; Visit Provider Internal Medicine
DX: R20.2 Paresthesia of skin (principal)
CPT/HCPCS: 95886; 95913

== ENCOUNTER → 2025-01-29 11:53 | Outpatient (BNV) | payer OTHER, SELFPAY | PROVIDERS: PCP Internal Medicine; Visit Provider Psychiatry & Neurology Neurology | DX: R20.2 Paresthesia of skin (principal) | CPT/HCPCS: 95886; 95912 ==

== ENCOUNTER 2025-02-02 07:20 | Outpatient (REF) | payer OTHER, SELFPAY ==
[2025-02-02 11:16] LABS: MANUAL DIFF FLAG NO
[2025-02-02 11:23] LABS: Appearance Urine Clear; Glucose Urine UA Negative (Negative); PH 7.0 (5.0-9.0); Specific Gravity - Urine <= 1.005 (1.005-1.025)
[2025-02-02 11:38] LABS: Hematocrit 41.9 % (37.0-47.0); Hemoglobin 13.5 g/dl (12.0-16.0); Imm Gran Abs Auto 0.02 X10*3/uL (0.00-0.03); Imm Gran Pct Auto 0.3 % (0.0-0.4); Lymphocytes Absolute Auto 1.9 X10*3/uL (1.2-4.9); Mean Corpuscular HGB Conc 32.2 g/dl (31.0-35.0); Mean Corpuscular Hemoglobin 26.6 pg (27.0-33.0); Mean Corpuscular Volume 82.6 fL (80.0-98.0); NRBC Abs Auto 0.000 X10*3/uL (0.0-0.012); NRBC Pct Auto 0.0 /100WBC (0.0-0.2); Platelet Count 269 X10*3/uL (160-400); Red Blood Count 5.07 X10*6/uL (4.20-5.50); White Blood Count 7.0 X10*3/uL (4.8-10.8)
[2025-02-02 12:30] LABS: Alanine Aminotransferase 17 U/L (0-31); Albumin Level 4.3 g/dL (3.5-5.0); Alkaline Phosphatase 90 U/L (39-117); Anion Gap 12 (12-20); Aspartate Amino Transferase 24 U/L (5-31); Blood Urea Nitrogen 10 mg/dL (9-16); Calcium 9.8 mg/dL (8.4-10.2); Carbon Dioxide 25 mmol/L (22-29); Chloride 104 mmol/L (96-108); Estimated Glomerular Filt Rate > 60; Lipase 66 U/L (8-78); Potassium 4.5 mmol/L (3.3-5.1); Sodium 136 mmol/L (135-145); Total Protein 7.3 g/dL (6.5-8.0)
== END 2025-02-02 07:21 | disposition home or self-care (01) ==
LOC: HO.HMGCLDS 07:20
PROVIDERS: PCP Internal Medicine; Visit Provider Internal Medicine Gastroenterology
DX: R73.03 Prediabetes (principal); R10.9 Unspecified abdominal pain; R11.0 Nausea
CPT/HCPCS: 36415; 80053; 81003; 83036; 83690; 85025; 86140

== ENCOUNTER 2025-02-14 12:39 | Outpatient (AMB) | payer OTHER, SELFPAY ==
--- NOTE | 2025-02-14 12:46 | MHC.OFFVIS ---
Vital Signs 02/14/25 12:52 Height 5 ft 4 in Weight 188 lb BMI 32.3 BP 116/56 L Blood Pressure Location Lt brachial Position Sitting Pulse 85 Intake Visit Reasons: follow up abdominal pain Intake Note: Patient complex follow up for abdominal pain/keke was 04/2023. Patient cc: abdominal pain with nauseas, bubble sounds in her stomach, Constipation with hard stool, and not a good appetite. Athletic Events Scorer Required: No Athletic Events Scorer Name: [id number] Accompanied by: Self / Same As Patient Allergies No Known Allergies Allergy (Verified 02/14/25 12:45) Medication List - Last Reconciled 02/14/25 by Kole Andres MD acetaminophen (Tylenol Extra Strength) 500 mg PO TID PRN 90 days cetirizine 10 mg PO DAILY PRN cholecalciferol (vitamin D3) 25 mcg PO DAILY 90 days diclofenac sodium 1% (Arthritis Pain (diclofenac)) 2 grams topical QID 30 days gabapentin 300 mg PO .qhs naproxen 500 mg PO BID PRN 30 days omeprazole 20 mg (2 x 10 mg) PO DAILY ondansetron 4 mg PO Q8H PRN 30 days polyethylene glycol 3350 (Miralax) 17 grams PO BID 30 days solifenacin (Vesicare) 10 mg PO DAILY triamcinolone acetonide 0.1% 1 appl topical DAILY 30 days HPI HPI follow up abdominal pain: Details: GI clinic visit for this 69-year-old female sent by Dr. Keeley Dugan for evaluation of heartburn and a ventral hernia Pt returns after a hiatus of 2 years and 9 months. TODAY'S VISIT: Patient complains of abdominal pain with nauseas, bubble sounds in her stomach, Constipation with hard stool, and not a good appetite. Wt loss of 12 lbs over the past 6 months Complains of bitter taste in her mouth, decreased appetite Taking oatmeal, banana, green tea, rice and bland diet Complains of constipation - has small BM with incomplete evacuation. Taking Tylenol and Omeprazole Complains of cold sweats and denies fever. Denies black stools or rectal bleeding PAST VISITS: FU of abdominal pain. 03/2023 FOBT was negative Diagnosed with ventral hernia States she eats very little and still unable to loose weight Has difficulty walking due to arthritis - still tries to walk 15 to 20 min. Took advil for arthirtis and started having heartburn Taking baking soda prn Notes decreased appetite and bitter taste in mouth and denies dysphagia Has a BM every morning and denies constipation Noted sudden onset of nausea, vomiting and diarrhea 5-6 weeks ago. Lasted 3 weeks. Notes a gurgling sensation prior to episode of nausea and vomiting. Prescribed Omeprazole and tylenol twice a day. Feeling better and nausea and vomiting has subsided. Has been drinking Gatorade. Still has anorexia and has 1 meal a day. Complains of abdominal bloating. BMs are normal - 1-2 times a day. Notes generalized aches and pains. Denies weight loss Patient denies major cardiac or pulmonary problems, loud snoring or sleep apnea Notes SOB on climbing stairs Denies problems with anesthesia in the past. Denies being on chronic anticoagulation. Patient denies known family history of colon polyps, colon cancer or other GI malignancies. PAST EGD/COLONOSCOPY: Colonoscopy 2-3 yrs ago at [facility] Immigrated from [place] 5 yrs ago and appetite has been intermittently decreased. Weighs 92 Kg and trying to loose weight. PAST GI HISTORY BY REVIEW OF MEDICAL RECORDS: 06/2020 Pt was seen by DR Dugan:Patient says that in May she suddenly started having nausea vomiting and then diarrhea which lasted 2-3 days and then stopped. Then 02 of June she started having same episode again which caused severe weakness that patient passed out in the bathroom, when she woke up she was able to go back to her room crawling on floor. Currently she is eating and do not have the diarrhea she is taking [id number] medication feet which she does not know the name of. Since the fall she is also having pain lower back coccyx area which hurts to sit. There is no fever chills no cough no sore throat no headache no dizziness. Patient have a history of urinary incontinence however currently she is doing okay. she is taking no prescription medications. Due for mammogram and labs I am sending omeprazole 20 mg she is to take that 2 times a day, I have also placed a referral for her to be evaluated by Gastroenterology. Pap smear was January of 2018 Colonoscopy September of 2017 [facility] Medical History Visit for suture removal Surgical History H/O colonoscopy Social History Household Members: Spouse Housing: House Alcohol intake: current Alcohol intake frequency: does not drink Patient Tobacco Use Status: Never used Tobacco e-Cigarette/Vaping Use: Never Used Second Hand Smoke Exposure: No service: No Current occupational status: retired Cognitive needs: No Hearing needs: No Vision needs: No Review of Systems Const All systems reviewed & are unremarkable except as noted in HPI and below Physical Exam Vital Signs: Last Vital Signs Pulse 85 02/14/25 12:52 BP 116/56 L 02/14/25 12:52 BMI result Body Mass Index 32.3 Const General: healthy appearing, no acute distress and anxious Nutritional Appearance: obese Orientation/consciousness: patient oriented x3 Limitations: language barrier HEENT Head: Yes normal to inspection Ears: hearing grossly normal bilaterally Eyes Sclerae: sclerae normal Pupils: Equal, round and reactive pupils present Neck Neck: Yes normal visual inspection Chest Chest palpation & inspection: normal inspection of the chest Resp Effort & Inspection: normal respiratory effort Auscultation: clear to auscultation bilaterally Cardio Palpation: normal PMI Rate: regular rate Rhythm: regular rhythm Heart sounds: S1 normal heart sound present, S2 normal heart sound present and no murmurs GI Palpation (GI): Soft to palpation, nontender and No hepatosplenomegaly present Auscultation: normal bowel sounds Rectal Exam - Female: deferred Skin General skin exam: no rashes or lesions noted Neuro General: patient oriented x3, gait normal and moves all extremities Cranial nerves: Yes Equal, round and reactive pupils present Psych Appearance: grossly normal Mental Status: mental status grossly normal Assessment & Plan Assessment & Plan (1) Dyspepsia: Code(s): R10.13 - Epigastric pain Category: Medical (2) Nausea: Code(s): R11.0 - Nausea Category: Medical (3) Colon cancer screening: Comment: Pt had a colonoscopy at [facility] in 09/2017. Stool FOBT was checked and was negative in 03/2023 (Pt declined to undergo a colonoscopy) Repeat stool FOBT or FIT test in 1 year. Code(s): Z12.11 - Encounter for screening for malignant neoplasm of colon Category: Medical (4) Abdominal pain: Code(s): R10.9 - Unspecified abdominal pain Category: Medical (5) Weight loss: Code(s): R63.4 - Abnormal weight loss Category: Medical (6) Chronic constipation: Code(s): K59.09 - Other constipation Category: Medical Plan 69 year old [place] female with obesity and DJD referred to GI for evaluation of intermittent episodes of nausea vomiting and diarrhea over the past few weeks. Patient notes improvement in symptoms with some residual dyspepsia and decrease in appetite. She was advised to continue taking omeprazole once daily. Further evaluation with upper endoscopy was advised. Patient would like to ensure her insurance would cover the procedure before she schedules. Patient had a colonoscopy at [facility] in September 2017. Unable to obtain colonoscopy records since procedure was performed > 5 yrs ago. Pt was advised to schedule a follow-up appointment by Dr Dugan for evaluation of a small ventral hernia Patient complains intermittent heartburn and denies any pain at the hernia site. Patient was advised to increase omeprazole to 20 mg daily. She was reassured regarding the hernia and advised to continue to monitor since surgery is not indicated at present. 02/14/25 Pt complains of nausea, upper abdominal pain and constipation Patient was advised to: 1. Increase Omeprazole to 20 mg twice daily 2. Take simethicone chewable tablets 2-3 times a day for gas and bloating 3. Take Linzess every morning for constipation 4. Schedule an Upper Endoscopy - rule out peptic ulcer disease 5. Schedule a CT scan 6. Stop naprosyn and take acetaminophen instead. Follow-up in 2 months (patient stated she has traveling to [place] early April and unsure when she will return to the [place]) Patient was advised to call and schedule a follow-up appointment once she returns home. Orders: Orders CT abdomen pelvis w IV con Today R10.9 - Unspecified abdominal pain, R11.0 - Nausea, R63.4 - Abnormal weight loss Referrals GI Procedure Notification R10.9 - Unspecified abdominal pain, R11.0 - Nausea Medications: New simethicone (Gas Relief (simethicone)) 125 mg PO TID PRN 90 tabs 0RF abdominal distention 30 days linaclotide (Linzess) 145 mcg PO QAM 30 caps 3RF 30 days K59.09 - Other constipation Changed From omeprazole 20 mg (2 x 10 mg) PO DAILY 180 caps 1RF To omeprazole 20 mg (2 x 10 mg) PO BID 360 caps 1RF 90 days Refilled omeprazole 20 mg (2 x 10 mg) PO DAILY 180 caps 1RF omeprazole 20 mg (2 x 10 mg) PO DAILY 180 caps 1RF Patient Instructions: 1. Increase Omeprazole to 20 mg twice daily 2. Take simethicone chewable tablets 2-3 times a day for gas and bloating 3. Take Linzess every morning for constipation 4. Schedule an Upper Endoscopy 5. Schedule a CT scan Coding Level of Care Code Est Pt Level 4 (78692) Diagnoses Dyspepsia R10.13 Nausea R11.0 Colon cancer screening Z12.11 Abdominal pain R10.9 Weight loss R63.4 Chronic constipation K59.09 Time Spent (min) 26
[2025-02-14 12:52] VITALS: BP 116/56; PULSE 85; BMI 32.3
== END 2025-02-14 13:42 | disposition home or self-care (01) ==
LOC: HO.HGI 12:40
PROVIDERS: PCP Internal Medicine; Visit Provider Internal Medicine Gastroenterology
DX: R10.13 Epigastric pain (principal); R11.0 Nausea; R63.4 Abnormal weight loss; K59.09 Other constipation
CPT/HCPCS: 99214

== ENCOUNTER → 2025-02-14 12:39 | Outpatient (BNVA) | payer OTHER, SELFPAY | PROVIDERS: PCP Internal Medicine; Visit Provider Internal Medicine Gastroenterology | DX: R10.13 Epigastric pain (principal); R11.0 Nausea; R63.4 Abnormal weight loss; K59.09 Other constipation; Z12.11 Encounter for screening for malignant neoplasm of colon | CPT/HCPCS: 99212 ==

== ENCOUNTER 2025-02-19 12:54 | Outpatient (AMB) | payer OTHER, SELFPAY ==
[2025-02-19 13:01] VITALS: BP 120/80; PULSE 86; TEMP 36.6; O2SAT 97; BMI 32.4
--- NOTE | 2025-02-19 13:01 | AM.OFFWIN_ITS ---
Intake Vital Signs 02/19/25 13:01 Height 5 ft 4 in Weight 189 lb BMI 32.4 BP 120/80 Blood Pressure Location Lt brachial Position Sitting Pulse 86 Pulse Source Pulse Oximeter Temp 98 F Temp Source Oral Pulse Oximetry (%) 97 Oxygen Delivery Method Room Air Intake Visit Reasons: EP Body pain, High BP Intake Note: Patient presents for elevated BP & body aches. Patient Tobacco Use Status: Never used Tobacco Pipe Line Repairer Required: Yes Pipe Line Repairer Name: Language - Udu Allergies No Known Allergies Allergy (Verified 02/19/25 13:04) Medication List - Last Reconciled 02/19/25 by Keeley Dugan MD acetaminophen (Tylenol Extra Strength) 500 mg PO TID PRN 90 days cetirizine 10 mg PO DAILY PRN cholecalciferol (vitamin D3) 25 mcg PO DAILY 90 days diclofenac sodium 1% (Arthritis Pain (diclofenac)) 2 grams topical QID 30 days gabapentin 300 mg PO .qhs linaclotide (Linzess) 145 mcg PO QAM 30 days naproxen 500 mg PO BID PRN 30 days omeprazole 20 mg (2 x 10 mg) PO BID 90 days ondansetron 4 mg PO Q8H PRN 30 days polyethylene glycol 3350 (Miralax) 17 grams PO BID 30 days simethicone (Gas Relief (simethicone)) 125 mg PO TID PRN 30 days solifenacin (Vesicare) 10 mg PO DAILY triamcinolone acetonide 0.1% 1 appl topical DAILY 30 days Do you need a note to return to daycare/school/sports/work: No HPI EP Body pain, High BP HPI Details History of Present Illness The patient is a 69-year-old female presenting with complaints concerning her blood pressure and sweating. Blood Pressure: - due to having sweating at night patien t was concerned about her blood pressure which is 120 x 80 reassurance provided Sweating: - The patient mentioned experiencing swe ating for approximately a week and a half. However it is a longstanding chronic problem and patient does complain about it off and on Problem List - concerned about blood pressure - nocturnal sweating Plan - your blood pressure is perfect there i s no need of medication - Discussion on ensuring air circulation in the living space using a fan for relief from sweating at night Review of Systems - General: No fever no chills - Neurological: No headaches no dizziness - Ear nose throat: No sore throat no hearing difficulty no ear pain - Cardiovascular: No syncope, no chest pain, no palpitations - Gastrointestinal: No nausea vomiting or diarrhea Physical Exam General: No acute distress HEENT: No acute findings Neck: Supple Respiratory system: Able to talk in full sentences, no audible wheeze Extremities: No new findings GLASS CUT OFF SUPERVISOR: Alert awake oriented x3 motor intact Skin: Normal turgor [facility] Medical History Visit for suture removal Surgical History H/O colonoscopy Social History Household Members: Spouse Housing: House Alcohol intake: current Alcohol intake frequency: does not drink Patient Tobacco Use Status: Never used Tobacco e-Cigarette/Vaping Use: Never Used Second Hand Smoke Exposure: No service: No Current occupational status: retired Cognitive needs: No Hearing needs: No Vision needs: No Physical Exam Vital Signs: Last Vital Signs Temp 98 F 02/19/25 13:01 Pulse 86 02/19/25 13:01 BP 120/80 02/19/25 13:01 Pulse Ox 97 02/19/25 13:01 Oxygen Delivery Method Room Air 02/19/25 13:01 BMI result Body Mass Index 32.4 Assessment & Plan Assessment & Plan (1) Chronic night sweats: Code(s): R61 - Generalized hyperhidrosis Plan Blood Pressure: - due to having sweating at night patient was concerned about her blood pressure which is 120 x 80 reassurance provided Sweating: - The patient mentioned experiencing sweating for approximately a week and a half. However it is a longstanding chronic problem and patient does complain about it off and on Problem List - concerned about blood pressure - nocturnal sweating Plan - your blood pressure is perfect there is no need of medication - Discussion on ensuring air circulation in the living space using a fan for relief from sweating at night Medications: Refilled polyethylene glycol 3350 (Miralax) 17 grams PO BID 1,020 grams 3RF 30 days K59.09 - Other constipation Coding Level of Care Code Est Pt Level 3 (07702) Diagnoses Chronic night sweats R61
== END 2025-02-19 13:40 | disposition home or self-care (01) ==
PROVIDERS: PCP Internal Medicine; Visit Provider Internal Medicine
DX: R61 Generalized hyperhidrosis (principal)

== ENCOUNTER → 2025-02-19 12:54 | Outpatient (BNVA) | payer OTHER, SELFPAY | PROVIDERS: PCP Internal Medicine; Visit Provider Internal Medicine | DX: R61 Generalized hyperhidrosis (principal) | CPT/HCPCS: 99212 ==

== ENCOUNTER 2025-02-27 08:05 | Outpatient (REF) | payer OTHER, SELFPAY ==
--- NOTE | ~2025-02-27 | CT_ITS ---
EXAMINATION: CT ABDOMEN AND PELVIS WITH CONTRAST CLINICAL INFORMATION: R 10.9. Unspecified abdominal pain. COMPARISON: None available. TECHNIQUE: Multidetector volumetric images were obtained from the superior aspect of the liver through the pubic symphysis following administration 85 mL of Omnipaque 350 intravenous contrast. Sagittal and coronal reformatted images were obtained on the technologist's workstation. Oral contrast: Yes This CT examination was performed using dose optimization techniques as appropriate, variously including the following: *Automated exposure control *Adjustment of mA and/or kV according to patient size (this includes techniques or standardized protocols for targeted exams where dose is matched to indication/reason for exam; i.e. extremities or head) *Use of iterative reconstruction technique DLP: 484 mGy-cm FINDINGS: LUNG BASES: Nonspecific patchy pulmonary groundglass. LIVER, GALLBLADDER, AND BILIARY TREE: [Liver measures 17 cm with decreased enhancement pattern. No focal mass. Portal veins and hepatic veins are patent. Gallbladder is nondistended. No pericholecystic fluid collection or gallbladder wall thickening. No intrahepatic or extrahepatic biliary ductal dilatation. PANCREAS: No focal lesion. No main pancreatic ductal dilatation. No peripancreatic fluid collections. SPLEEN: 8 cm. No solid or cystic lesion. ADRENAL GLANDS: No nodular lesions. KIDNEYS AND URETERS: No hydronephrosis. No gross nephrolithiasis. Normal enhancement pattern of the renal parenchyma. Subcentimeter cysts, upper pole right kidney. No dilatation of the ureters. BLADDER: Fluid-filled with questionable wall thickening. GASTROINTESTINAL TRACT: No intestinal obstruction pattern. No pneumatosis intestinalis. Appendix is normal. No gross intestinal wall thickening. Few scattered diverticula in the sigmoid colon and descending colon. No ascites. No pneumoperitoneum. No peripheral enhancing fluid collection, peritoneal cavity. ABDOMINAL WALL: There is just abdominal rectus muscles in the periphery umbilical region with small fat-containing umbilical hernia. LYMPH NODES: [Nonspecific mildly prominent mesenteric and retroperitoneum. VASCULAR: No aneurysm or dissection, abdominal aorta. No gross calcified plaques. PELVIC VISCERA: Subcentimeter hypodensity near the cervix of the uterus. OSSEOUS STRUCTURES: Multilevel thoracolumbar spondylosis. No acute fracture or gross listhesis. Sclerosis in the sacroiliac joints bilaterally. Osteopenia versus osteoporosis. CT/CT abdomen pelvis w IV con IMPRESSION: Diverticular disease, left hemicolon. Hepatomegaly, mild and likely steatosis. Subcentimeter cyst, right kidney. Small fat-containing umbilical hernia. Subcentimeter hypodensity, uterus. Fleischner guidelines were followed. Electronically signed by: Ehsan Quiroga MD 02/27/2025 10:55 AM EDT
[2025-02-27] MEDS: iohexoL 350 MG/ML 100 ML INFUS..BTL IV (10:38)
[2025-02-27] MEDS: Barium Sulfate Oral (Vanilla) 450 ML ORAL.SUSP 900 ML PO (10:40)
== END 2025-02-27 08:06 | disposition home or self-care (01) ==
LOC: HO.CT 08:05
PROVIDERS: PCP Internal Medicine; Visit Provider Internal Medicine Gastroenterology
DX: R10.9 Unspecified abdominal pain (principal); R11.0 Nausea; R63.4 Abnormal weight loss
CPT/HCPCS: 74177; Q9967

== ENCOUNTER → 2025-02-27 08:08 | Outpatient (BNV) | payer OTHER, SELFPAY | PROVIDERS: PCP Internal Medicine; Visit Provider Radiology Diagnostic Radiology | DX: K57.30 Diverticulosis of large intestine without perforation or abscess without bleeding (principal); K42.9 Umbilical hernia without obstruction or gangrene; N28.1 Cyst of kidney, acquired; N85.8 Other specified noninflammatory disorders of uterus; R16.0 Hepatomegaly, not elsewhere classified | CPT/HCPCS: 74177 ==